=== PATIENT | female | born 1945 | race Caucasian/White ===

== ENCOUNTER 2016-11-27 11:44 | Inpatient (IN) ==
[2016-11-27] MEDS ORDERED: SOLU-MEDROL 125 MG IVP STA (12:03)
[2016-11-27] MEDS ORDERED: DUONEB NEB STA ×2 (12:03→12:09)
[2016-11-27] MEDS ORDERED: DUONEB NEB ONE (12:04)
[2016-11-27 12:14] LABS: ABG PH 7.401 (7.35-7.45)
[2016-11-27 12:15] LABS: ABG PCO2 45.6 mmHg (35-45)
[2016-11-27 12:16] LABS: ABG BASE EXCESS 4 (-2.0-2.0); ABG HCO3 28.3 (22.0-26.0); ABG TCO2 30 (22.0-28.0)
[2016-11-27 12:31] LABS: BASOPHILS # (AUTO) 0.1 K/uL (0-0.2); BASOPHILS % (AUTO) 0.7 % (0.0-3.0); EOSINOPHILS # (AUTO) 0.7 K/ul (0.0-0.7); EOSINOPHILS % (AUTO) 10.2 % (0.0-7.0); HEMATOCRIT 45.9 % (37.0-47.0); HEMOGLOBIN 15.5 g/dl (12.0-16.0); IMMATURE GRANULOCYTE % (AUTO) 0.1 % (0.0-5.0); LYMPHOCYTES # (AUTO) 1.9 K/uL (0.60-3.4); LYMPHOCYTES % (AUTO) 27.9 (10.0-50.0); MEAN CORPUSCULAR HEMOGLOBIN 30.9 pg (27.0-31.0); MEAN CORPUSCULAR HGB CONC 33.8 (31.8-35.4); MEAN CORPUSCULAR VOLUME 91.6 fl (81.0-99.0); MONOCYTES # (AUTO) 0.9 K/uL (0.4-2.0); MONOCYTES % (AUTO) 12.5 (0-10); NEUTROPHILS # (AUTO) 3.3 K/ul (2.0-6.9); NEUTROPHILS % (AUTO) 48.6; PLATELET COUNT 225 10^3/uL (140-440); RED BLOOD COUNT 5.01 10^6/ul (4.20-5.40); WHITE BLOOD COUNT 6.87 K/ul (4.6-10.2)
[2016-11-27 12:48] LABS: FLU INTERNAL QC INTERNAL QC VALID; RAPID FLU A NEGATIVE (NEGATIVE); RAPID FLU B NEGATIVE (NEGATIVE)
--- NOTE | 2016-11-27 13:07 | DI ---
EXAM: Chest, one-view HISTORY: Cough COMPARISON: 05/10/2015 TECHNIQUE: Single view of the chest was performed FINDINGS: There is chronic right basilar opacity that probably represents scarring. Left lung base, poorly visualized. No definitive new airspace consolidation There is no pleural effusion or pneumo thorax. The heart is enlarged and unchanged in size. The mediastinal contour is normal. There are no acute abnormalities of the bones. IMPRESSION: 1. Chronic right basilar opacity probably represents scarring. Left lung base poorly visualized. N o definitive consolidation identified, though a pneumonia would be difficult to exclude at the lung bases. 2. Cardiomegaly
[2016-11-27] MEDS ORDERED: NON-FORMULARY MEDICATION (Hydrocodone Bit/Acetaminophen 1 TAB) PO PRN (13:23)
--- NOTE | 2016-11-27 13:24 | ED.PDOC ---
General ED Provider: Dr. BRITTNEY ORR Chief Complaint: Shortness of Air Stated Complaint: SHORT OF AIR Time Seen by Physician: 12:00 Mode of Arrival: Wheelchair Information Source: Patient Exam Limitations: No limitations Primary Care Provider: CELI HIDALGO Nursing and Triage Documentation Reviewed and Agree: Yes Respiratory Complaint Exam - Shortness of Air Complaint/Exam Symptoms Are: Still present Timing: Intermittent Initial Severity: Moderate Current Severity: Moderate Character: Reports: Dyspnea at rest, Dyspnea on exertion Aggravating: Reports: Recumbent position, URI Associated Signs and Symptoms: Reports: Cough, Wheezing History of Healthcare-Acquired Pneumonia: No Pulmonary Embolism Risk Factors: Reports: None Cardiac Risk Factors: Reports: Hypertension Pseudomonas Risk Factors: Reports: Chronic Lung Disease Tuberculosis Risk Factors: Reports: Chronic Resp. Faliure Home Oxygen Use: No Recent Stress Test: No Recent Echo/LV Function: No Respiratory Distress: None Stridor Present: No Tracheal Deviation: No Accessory Muscle Use: No Retractions: Not Present Diminished Breath Sounds: No Prolonged Expiratory Phase: No Unable to Speak Full Sentences: No Fatigue: No Leg Swelling: No Jewel's Sign Present: No Grunting Respirations: No Kussmaul Respirations: No Differential Diagnoses: Asthma, CHF, Pulmonary Edema, Pneumonia, Bronchitis, Bronchospasm, URI Review of Systems - Review Of Systems Constitutional: Reports: Malaise, Weakness, Loss of appetite Eyes: Reports: No symptoms Ears, Nose, Mouth, Throat: Reports: No symptoms Respiratory: Reports: Cough, Wheezing Cardiac: Reports: No symptoms GI: Reports: No symptoms : Reports: No symptoms Musculoskeletal: Reports: No symptoms Skin: Reports: No symptoms Neurological: Reports: No symptoms Endocrine: Reports: No symptoms Hematologic/Lymphatic: Reports: No symptoms All Other Systems: Reviewed and Negative Past Medical History - Past Medical History Previously Healthy: No Endocrine: Reports: None Cardiovascular: Reports: Hypertension Respiratory: Reports: COPD Hematological: Reports: None Gastrointestinal: Reports: None Genitourinary: Reports: None Neuro/Psych: Reports: None Musculoskeletal: Reports: None Cancer: Reports: None Last Menstrual Period: hysterectomy - Surgical History General Surgical History: Reports: None - Family History Family History: Reports: None - Social History Smoking Status: Current every day smoker, Heavy tobacco smoker Hx Substance Use: No Alcohol Screening: None Physical Exam - Physical Exam Appearance: Well-appearing Ill-appearing: Mild Pain Distress: Mild Eyes: GIL, EOMI, Conjunctiva clear ENT: Ears normal, Nose normal, Oropharynx normal Respiratory: Rhonchi, Wheezes Cardiovascular: RRR, Pulses normal, No rub, No murmur GI/: Soft, Nontender, No masses, Bowel sounds normal, No Organomegaly Musculoskeletal: Normal strength, ROM intact, No edema, No calf tenderness Skin: Warm, Dry, Normal color Neurological: Sensation intact, Motor intact, Reflexes intact, Cranial nerves intact, Alert, Oriented Psychiatric: Affect appropriate, Mood appropriate Interpretation - Radiology Interpretation Radiology Interpretation By: Radiologist Radiology Results: No acute changes Re-Evaluation - Re-Evaluation Time of Re-Evaluation: 12:30 Status: Improved Vital Signs Stable: Yes Pain Level: 0 Appearance: NAD Lungs: Clear Skin: Warm and Dry Neuro: Alert and Oriented X3 CV: RRR - Re-Evaluation Time of Re-Evaluation: 13:27 Status: Improved Vital Signs Stable: Yes Pain Level: 0 Appearance: NAD Skin: Warm and Dry Neuro: Alert and Oriented X3 CV: RRR Physician Notification - Case Discussed Physician Notified: PMD Time of Notification: 13:26 (SAW PT IN THE ED STATED TO ADMITT WITH STEROID AND LEVAQUIN REPEAT ABG 1600) Critical Care Note - Critical Care Note Total Time (mins): 0 Course - Course Hematology/Chemistry: 11/27/16 12:25 Orders, Labs, Meds: Lab Review 11/27/16 11/27/16 11/27/16 12:09 12:20 12:25 WBC 6.87 RBC 5.01 Hgb 15.5 Hct 45.9 MCV 91.6 MCH 30.9 MCHC 33.8 RDW Coeff of Serenity 13.1 Plt Count 225 Immature Gran % (Auto) 0.1 Neut % (Auto) 48.6 Lymph % (Auto) 27.9 [place] % (Auto) 12.5 H Eos % (Auto) 10.2 H Baso % (Auto) 0.7 Immature Gran # (Auto) 0.0 Neut # 3.3 Lymph # 1.9 [place] # 0.9 Eos # 0.7 Baso # 0.1 D-Dimer 0.75 Puncture Site R brachial O2 Saturation 84.0 L ABG pH 7.401 ABG pCO2 45.6 H ABG pO2 49.0 L* ABG HCO3 28.3 H ABG Total CO2 30 H ABG Base Excess 4 H Mark Test + FiO2 % 21.0 B-Natriuretic Peptide 76 Influenza A (Rapid) Negative Influenza B (Rapid) Negative Orders Category Date Time Status ABG DRAW REQUEST Stat CARDIO 11/27/16 12:09 Completed EKG-(ED ONLY) Stat CARDIO 11/27/16 12:03 Completed NEBULIZER TREATMENT Stat CARDIO 11/27/16 12:03 Completed ED IV/MEDIPORT/POWERPORT .ONCE EMERGENCY 11/27/16 12:03 Active ABG Stat LAB 11/27/16 12:09 Completed B-TYPE NATRIURETIC PEPTIDE Stat LAB 11/27/16 12:25 Completed BLOOD CULTURE Stat LAB 11/27/16 12:25 Received CBC W/ AUTO DIFF Stat LAB 11/27/16 12:25 Completed COMPREHENSIVE METABOLIC PANEL Stat LAB 11/27/16 12:25 Received CREATINE KINASE Stat LAB 11/27/16 12:25 Received D-DIMER Stat LAB 11/27/16 12:25 Completed MOLECULAR GROUP A STREP Stat LAB 11/27/16 12:20 Results RAPID FLU A/B Stat LAB 11/27/16 12:20 Completed STREP SCREEN Stat LAB 11/27/16 12:20 Results TROPONIN I Stat LAB 11/27/16 12:25 Received 0.9 % Sodium Chloride [Saline Flush] MEDS 11/27/16 12:02 Active 1 syr IVF PRN PRN Ipratropium/Albuterol Neb [Duoneb] MEDS 11/27/16 12:04 Discontinued 1 vial NEB .STK-MED ONE Ipratropium/Albuterol Neb [Duoneb] MEDS 11/27/16 12:03 Discontinued 1 vial NEB ONCE STA Methylprednisolone Sod Succ/Pf [Solu-Medrol 125 mg] MEDS 11/27/16 12:03 Discontinued 125 mg IVP ONCE STA CHEST, 1V AP ONLY Stat RADS 11/27/16 12:04 Completed Medications Generic Name Dose Route Start Last Admin Trade Name Freq PRN Reason Stop Dose Admin Sodium Chloride 1 syr 11/27/16 12:02 11/27/16 12:23 Saline Flush IVF 1 syr PRN PRN Administration To flush IV Discontinued Medications Generic Name Dose Route Start Last Admin Trade Name Freq PRN Reason Stop Dose Admin Albuterol/Ipratropium 1 vial 11/27/16 12:03 11/27/16 12:11 Duoneb NEB 11/27/16 12:04 1 vial ONCE STA Administration Methylprednisolone Sodium Succinate 125 mg 11/27/16 12:03 11/27/16 12:23 Solu-Medrol 125 Mg IVP 11/27/16 12:04 125 mg ONCE STA Administration Vital Signs: Temp Pulse Resp BP Pulse Ox 11/27/16 11:45 98.8 F 84 36 H 145/80 H 84 L Departure - Departure Time of Disposition: 13:27 Disposition: ADMITTED INPATIENT Discharge Problem: COPD exacerbation Instructions: Dyspnea (ED) Condition: Good Pt referred to PMD for follow-up: No Additional Instructions: Please call your Family Physician as soon as possible to schedule a follow-up appointment. Allergies/Adverse Reactions: Allergies codeine Adverse Reaction (Verified 11/27/16 11:54) Penicillins Adverse Reaction (Verified 11/27/16 11:54) Home Medications: Ambulatory Orders Albuterol Sulfate [Proair Hfa] 2 puff IH Q6HR PRN 03/25/15 Atenolol 25 mg PO DAILY 03/25/15 Losartan/Hydrochlorothiazide [Losartan-Hctz 100-25 mg Tab] 1 tab PO DAILY Alprazolam [Alprazolam] 0.25 mg PO BID PRN 05/10/15 Aspirin [Aspirin Chewable] 81 mg PO DAILY 05/10/15 Hydrocodone Bit/Acetaminophen [Lortab 5-500] 1 tab PO 12 PRN 05/10/15 Disposition Discussed With: Patient, Family
[2016-11-27 13:37] LABS: ALBUMIN/GLOBULIN RATIO 1.33; ANION GAP 13.8; BILIRUBIN,TOTAL 0.77 mg/dL (0.00-1.20); BUN/CREATININE RATIO 20.28; CALCIUM 9.7 mg/dL (8.2-10.2); CREATININE 0.69 mg/dL (0.60-1.30); POTASSIUM 3.8 mmol/L (3.5-5.10); TROPONIN I 0.018 ng/ml (0.0000-0.4000)
[2016-11-27 14:09] VITALS: BMI 20.5
[2016-11-27] MEDS ORDERED: ASPIRIN CHEWABLE PO PRN (14:23)
[2016-11-27] MEDS: LEVAQUIN 500 MG in PREMIX 100 ML D5W 1 BAG IV SCH (15:47)
[2016-11-27 15:59] LABS: ABG BASE EXCESS 0 (-2.0-2.0); ABG HCO3 25.6 (22.0-26.0); ABG PCO2 44.2 mmHg (35-45); ABG TCO2 27 (22.0-28.0)
[2016-11-27] MEDS: TENORMIN PO SCH (17:01)
[2016-11-27] MEDS: HYZAAR 50-12.5 MG TAB PO SCH (17:01)
[2016-11-27] MEDS: DUONEB NEB SCH ×2 (17:08→23:20)
[2016-11-27] MEDS: XANAX PO PRN (21:03)
[2016-11-27] MEDS: SOLU-MEDROL 125 MG IV SCH (21:19)
[2016-11-28] MEDS: SOLU-MEDROL 125 MG IV SCH ×3 (04:26→20:05)
[2016-11-28] MEDS: DUONEB NEB SCH ×4 (05:50→23:29)
[2016-11-28] MEDS ORDERED: ASPIRIN CHEWABLE PO SCH (08:00)
[2016-11-28] MEDS: LEVAQUIN 500 MG in PREMIX 100 ML D5W 1 BAG IV SCH (08:22)
[2016-11-28 08:31] LABS: BASOPHILS % (AUTO) 0.2 % (0.0-3.0); HEMATOCRIT 44.5 % (37.0-47.0); HEMOGLOBIN 15.3 g/dl (12.0-16.0); IMMATURE GRANULOCYTE % (AUTO) 0.4 % (0.0-5.0); LYMPHOCYTES # (AUTO) 0.8 K/uL (0.60-3.4); LYMPHOCYTES % (AUTO) 9.4 (10.0-50.0); MEAN CORPUSCULAR HEMOGLOBIN 31.2 pg (27.0-31.0); MEAN CORPUSCULAR HGB CONC 34.4 (31.8-35.4); MEAN CORPUSCULAR VOLUME 90.6 fl (81.0-99.0); MONOCYTES # (AUTO) 0.3 K/uL (0.4-2.0); MONOCYTES % (AUTO) 3.5 (0-10); NEUTROPHILS # (AUTO) 7.1 K/ul (2.0-6.9); NEUTROPHILS % (AUTO) 86.5; PLATELET COUNT 231 10^3/uL (140-440); RED BLOOD COUNT 4.91 10^6/ul (4.20-5.40); WHITE BLOOD COUNT 8.26 K/ul (4.6-10.2)
[2016-11-28 08:55] LABS: ALBUMIN 3.8 g/dL (3.4-5.0); ALBUMIN/GLOBULIN RATIO 1.19; ANION GAP 15.6; BILIRUBIN,TOTAL 0.86 mg/dL (0.00-1.20); BUN/CREATININE RATIO 20.28; CALCIUM 9.7 mg/dL (8.2-10.2); CREATININE 0.69 mg/dL (0.60-1.30); POTASSIUM 3.6 mmol/L (3.5-5.10)
[2016-11-28] MEDS ORDERED: TENORMIN PO SCH (09:00)
[2016-11-28] MEDS ORDERED: HYZAAR 50-12.5 MG TAB PO SCH (09:00)
[2016-11-28] MEDS ORDERED: NON-FORMULARY MEDICATION (Losartan/Hydrochlorothiazide [Losartan-Hctz 100-25 Mg Tab] 1 TAB PO SCH (09:00)
--- NOTE | 2016-11-28 09:53 | DI ---
EXAM: Chest one view HISTORY: Short of air COMPARISON: 11/27/2016 TECHNIQUE: Single view of the chest was performed FINDINGS: Chronic right basilar opacity. Left lung base, poorly visualized. No pneumothorax. No definite pleural effusion. Heart is enlarged and unchanged. Mediastinal contour unchanged, noting atherosclerosis. Bones appear unchanged. Since the prior study, there has been no significant interv al change. IMPRESSION: 1. Chronic right basilar opacity probably represents scarring. Left lung base poorly visualized. No definitive consolidation identified, though a pneumonia would be difficult to exclude at the lung ba ses. 2. Cardiomegaly
[2016-11-28] MEDS: MUCINEX PO SCH ×2 (10:25→20:04)
[2016-11-28] MEDS: XANAX PO PRN ×2 (13:07→20:10)
[2016-11-28] MEDS: TENORMIN PO SCH (16:29)
[2016-11-28] MEDS: HYZAAR 50-12.5 MG TAB PO SCH (16:29)
[2016-11-29] MEDS: SOLU-MEDROL 125 MG IV SCH ×3 (05:19→20:26)
[2016-11-29] MEDS: DUONEB NEB SCH ×4 (05:30→23:31)
--- NOTE | 2016-11-29 07:28 | DI ---
EXAM: Chest two views HISTORY: Short of air COMPARISON: 11/28/2016 TECHNIQUE: Two views of the chest were performed FINDINGS: Bibasilar interstitial opacities appear increased. There is no pleural effusion or pneum othorax. The heart is mildly enlarged and unchanged. in size. The mediastinal contour is unchanged , noting atherosclerosis. There are no acute abnormalities of the bones. IMPRESSION: Mild bibasilar interstitial opacities appear increased and could represent atelectasis and/or pneumonia. There are likely chronic underlying changes in these regions, limiting evaluation
[2016-11-29 07:56] LABS: BASOPHILS % (AUTO) 0.2 % (0.0-3.0); HEMATOCRIT 42.4 % (37.0-47.0); HEMOGLOBIN 14.5 g/dl (12.0-16.0); IMMATURE GRANULOCYTE % (AUTO) 0.5 % (0.0-5.0); LYMPHOCYTES # (AUTO) 0.8 K/uL (0.60-3.4); LYMPHOCYTES % (AUTO) 4.9 (10.0-50.0); MEAN CORPUSCULAR HEMOGLOBIN 30.9 pg (27.0-31.0); MEAN CORPUSCULAR HGB CONC 34.2 (31.8-35.4); MEAN CORPUSCULAR VOLUME 90.2 fl (81.0-99.0); MONOCYTES % (AUTO) 6.3 (0-10); NEUTROPHILS # (AUTO) 13.5 K/ul (2.0-6.9); NEUTROPHILS % (AUTO) 88.1; PLATELET COUNT 225 10^3/uL (140-440); WHITE BLOOD COUNT 15.28 K/ul (4.6-10.2)
[2016-11-29 08:22] LABS: ALBUMIN 3.7 g/dL (3.4-5.0); ALBUMIN/GLOBULIN RATIO 1.28; ANION GAP 14.5; BILIRUBIN,TOTAL 0.71 mg/dL (0.00-1.20); CALCIUM 9.5 mg/dL (8.2-10.2); CREATININE 0.68 mg/dL (0.60-1.30); POTASSIUM 3.5 mmol/L (3.5-5.10); TOTAL PROTEIN 6.6 g/dL (5.8-8.1)
[2016-11-29] MEDS: LEVAQUIN 500 MG in PREMIX 100 ML D5W 1 BAG IV SCH (08:53)
[2016-11-29] MEDS: MUCINEX PO SCH ×2 (08:53→20:26)
[2016-11-29] MEDS: XANAX PO PRN ×2 (13:15→20:29)
[2016-11-29] MEDS: HYZAAR 50-12.5 MG TAB PO SCH (17:15)
[2016-11-29] MEDS: TENORMIN PO SCH (17:16)
[2016-11-30] MEDS: SOLU-MEDROL 125 MG IV SCH (05:29)
[2016-11-30] MEDS: DUONEB NEB SCH ×2 (05:32→11:13)
[2016-11-30] MEDS: LEVAQUIN 500 MG in PREMIX 100 ML D5W 1 BAG IV SCH (09:14)
[2016-11-30] MEDS: MUCINEX PO SCH (09:14)
[2016-11-30 09:23] LABS: ABG PCO2 45.4 mmHg (35-45); ABG PH 7.422 (7.35-7.45)
[2016-11-30 09:24] LABS: ABG BASE EXCESS 5 (-2.0-2.0); ABG HCO3 29.6 (22.0-26.0); ABG TCO2 31 (22.0-28.0)
[2016-11-30] MEDS: XANAX PO PRN (09:25)
[2016-11-30 10:51] VITALS: BP 96/62; TEMP 97.3
--- NOTE | 2016-11-30 11:11 | CM.DICTOOL ---
ADMISSION: 11/27/16 13:31 DISCHARGE: November 30, 2016 DATE OF SERVICE: 11/30/16 FINAL DIAGNOSIS COPD exacerbation Hypertension COPD, oxygen dependent Previous smoker (stopped 1 month ago) Anxiety Partial hysterectomy Cholecystectomy LAST VITALS Temp Pulse Resp BP Pulse Ox 97.0 F L 63 20 103/58 L 90 L 11/30/16 05:49 11/30/16 05:49 11/30/16 08:00 11/30/16 05:49 11/30/16 10:00 ACTIVE MEDICATIONS Alprazolam (Xanax) 0.25 mg PO BID PRN PRN Reason: Agitation Last Admin: 11/30/16 09:25 Dose: 0.25 mg Aspirin (Aspirin Chewable) 81 mg PO BID PRN PRN Reason: pain Atenolol (Tenormin) 25 mg PO 1700 SWATI Last Admin: 11/29/16 17:16 Dose: 25 mg HCTZ/Losartan Potassium (Hyzaar 50-12.5 Mg Tab) 2 tab PO 1700 SWATI Last Admin: 11/29/16 17:15 Dose: 2 tab Albuterol Nebs TID Last Admin: ALLERGIES codeine Adverse Reaction (Verified 11/27/16 11:54) Penicillins Adverse Reaction (Verified 11/27/16 11:54) NEW PRESCRIPTIONS: Levaquin 250 mg daily for 5 days Prednisone 10 mg daily for 5 days. Take with food SMOKING: Advised to not resume smoking DISEASE SPECIFIC EDUCATION: Smoking Pulmonary Rehab Program Prescriptions Follow-up with physician LAB REVIEW: 11/29/16 07:40 11/29/16 07:40 11/30/16 09:15: Puncture Site R brach, O2 Saturation 85.0 L, ABG pH 7.422, ABG pCO2 45.4 H, ABG pO2 50.0 L*, ABG HCO3 29.6 H, ABG Total CO2 31 H, ABG Base Excess 5 H, Mark Test +, FiO2 % 21.0 PLAN: Discharge Home Diet: Regular diet. Advised to chop or grind meats if difficulty swallowing meats continues. Activity: Gradually resume activity as tolerated Informational packet is given regarding Pulmonary Rehab program at [facility]. She is encouraged to call Melissa Rueda after reading the material to arrange an appointment. Continue use of home oxygen at 2.5 liters per nasal cannula. Resume use of home nebulizer treatments three times daily. An appointment has been scheduled with Dr. Burgess for December 04, 2016 at 11:30 am Mrs. Clayton is alert and oriented x 3. She is ambulatory and independent with ADL's. She requires oxygen at 2.5 liters per cannula. Oxygen and nebulizer are available at home for her use. Meal intakes are fair at 10-90%. No reports of nausea. Skin is in good condition. No rashes, irritation or decubitus ulcers are noted. Ruy Burgess MD
--- NOTE | 2016-12-02 13:33 | HP ---
DATE OF SERVICE: 11/27/16 REASON FOR HOSPITALIZATION: Respiratory failure. HISTORY OF PRESENT ILLNESS: The patient is a 71 year old white female came to the emergency room because of cough, congestion, shortness of breath and the patient has been on antibiotics with not much improvement. She was supposed to come to the office but she decided to the go to the emergency room. The patient was seen and examined in the emergency room by ER attending. Her arterial blood gasses on room air showed pO2 49, pCO2 of 45, pH 7.40 with 84% saturation. The patient has severe chronic lung disease. She says that she has quit smoking four weeks ago. 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 REVIEW OF SYSTEMS: CONSTITUTIONAL: No night sweats. Fatigue and weakness. No fever or chills. HEENT: Eyes: No visual changes. No eye pain. No eye discharge. ENT: No runny nose. No epistaxis. No sinus pain. No sore throat. No odynophagia. No ear pain. No congestion. RESPIRATORY: Cough,congestion yellowish sputum production. No hemoptysis. CARDIOVASCULAR: No angina symptoms. No CHF symptoms. No atypical chest pain for CAD. No palpitations. No shortness of breath. Pleuritic type pain with cough on the right posterior scapular area. No PND and No orthopnea. GASTROINTESTINAL: No abdominal pain. No nausea or vomiting. No diarrhea or constipation. No hematemesis. No hematochezia. Appetite not that good. GENITOURINARY: No urgency. No frequency. No dysuria. No hematuria. No obstructive symptoms. No discharge. No pain. No significant abnormal bleeding. MUSCULOSKELETAL: No musculoskeletal pain. No joint swelling. No arthritis. NEUROLOGICAL: No headache. No neck pain. No syncope. No seizures. No dizziness. PSYCHIATRIC: Not anxious. No depression. No suicidal thoughts. No homicidal thoughts. SKIN: No rash. No lesions. No wounds. ENDOCRINE: No unexplained weight loss. No weight gain. HEMATOLOGIC/LYMPHATIC: No anemia. No purpura. No petechiae. No prolonged or excessive bleeding. No palpable lymph nodes. PERSONAL/FAMILY/SOCIAL HISTORY: The patient is and lives with the . Smokes more than a couple of packs a day, says that she has quit four weeks ago. No alcohol abuse. Does all activity of daily living. Family history: Father is with high blood pressure, mother with Alzheimer's disease. Three kids. PAST MEDICAL/SURGICAL PROBLEMS: Partial hysterectomy Appendectomy Peptic ulcer disease Severe chronic lung disease History of smoking Hypertension Dyslipidemia Hypothyroidism Status post cholecystectomy Polycythemia secondary to smoking Near Stage III diverticulosis of colon MEDICATIONS: Albuterol inhaler two puffs six hourly NEBS treatment at night 25 PO daily Losartan Hydrochlorothiazide 125mg PO daily Alprazolam 0.25mg twice a day Aspirin 81mg PO daily ALLERGIES: Codeine Penicillin PHYSICAL EXAMINATION: GENERAL: The patient is oriented to time, place and person. VITAL SIGNS: Temperature 97.5, pulse 90, respiratory rate 20, blood pressure 145/80 and pulse 91%. HEENT: Head normocephalic, atraumatic. Eyes: Extraocular muscles are intact. Pupils are equal, round and reactive to light and accommodation. Ears: No lesions. Nose appeared normal. Throat: No exudate or erythema. Mucosa membrane dry. NECK: Supple. No JVP, no carotid bruit. No lymphadenopathy or thyromegaly. LUNGS: Kyphos. decreased breath sounds with mild wheeze but good air entry. Percussion note normal. Chest symmetrical. HEART: S1, S2, no S3. PMI not palpable. No murmurs. No cyanosis or clubbing. No ascites. Pulses: Dorsalis pedis and posterior tibial pulses and radial +1. ABDOMEN: Soft. Nontender. Bowel sounds active. No CVA tenderness. No mass felt. EXTREMITIES: No pedal edema. Full range of motion of all extremities, equal. NEUROLOGIC: No focal deficit. Cranial nerves II through XII are grossly intact. No headache, no double vision or headache. SKIN: Dry. Intact. Turgor - normal. LYMPHATIC: No palpable lymph nodes/no lymphedema. MUSCULOSKELETAL: Normal joints with no swelling. Muscle tone is normal. LABS: Hgb 15, hct 25, WBC 6,800 normal differential. Chest x-ray COPD. ABG mentioned above. Influenza A and B negative. CMP: Creatinine 0.6, BUN 14, potassium 3.8, CK borderline , BNP 76, D-dimer negative. ASSESSMENT: 1. Acute respiratory failure 2. Sever chronic lung disease 3. Acute bronchitis 4. History of smoking 5. Hypertension 6. Dyslipidemia 7. Hypothyroidism 8. ASHD 9. Kyphosis 10.Polycythemia Secondary to smoking 11.Diverticulosis 12.Cholecystectomy 13. Hysterectomy 14. Appendectomy 15. Peptic ulcer disease PLAN: 1. IV Fluids 2. IV steroids 3. Levaquin 500mg Q 24 hours 4. Watch for fluid overload 5. Telemetry 6. Monitor Arterial blood gasses 7. 2 liters of oxygen per cannula per minute 8. Counseling for smoking done. 9. Steroid side effects discussed including avascular necrosis of femoral head. CONDITION: Stable. TIME SPENT: More than 70 minutes. MTDD
--- NOTE | 2016-12-03 12:45 | PN ---
DATE OF SERVICE: 11/28/16 SUBJECTIVE: The patient is a 71 year old white female hospitalized with COPD and possibility of /pneumonitis and bronchitis. The patient was in respiratory failure. The patient is feeling a lot better and breathing better. Her appetite has improved. REVIEW OF SYSTEMS: CONSTITUTIONAL: No night sweats. No fatigue, malaise, lethargy. No fever or chills. HEENT: Eyes: No visual changes. No eye pain. No eye discharge. ENT: No runny nose. No epistaxis. No sinus pain. No sore throat. No odynophagia. No congestion. RESPIRATORY: No cough, no congestion. No hemoptysis. CARDIOVASCULAR: No angina symptoms. No CHF symptoms. No atypical chest pain for CAD. No palpitations. No shortness of breath. GASTROINTESTINAL: No abdominal pain. No nausea or vomiting. No diarrhea or constipation. No hematemesis. No hematochezia. GENITOURINARY: No urgency. No frequency. No dysuria. No hematuria. No obstructive symptoms. No discharge. No pain. No significant abnormal bleeding. MUSCULOSKELETAL: No musculoskeletal pain; no joint swelling. NEUROLOGICAL: No headache. No neck pain. No syncope. No seizures. No dizziness. PSYCHIATRIC: Not anxious. No depression. No suicidal thoughts. No homicidal thoughts. SKIN: No rash. No lesions. No wounds. ENDOCRINE: No unexplained weight loss. No weight gain. HEMATOLOGIC/LYMPHATIC: No anemia. No purpura. No petechiae. No prolonged or excessive bleeding. No palpable lymph nodes. PHYSICAL EXAMINATION: GENERAL: The patient is oriented to time, place and person. VITAL SIGNS: Temperature 97, pulse 78, respiratory 19, blood pressure 105/64 and pulse ox 90% with 2 liters. HEENT: Head normocephalic, atraumatic. Eyes: Extraocular muscles are intact. Pupils are equal, round and reactive to light and accommodation. Ears: No lesions. Nose appeared normal. Throat: No exudate or erythema. NECK: Supple. No JVD, no carotid bruit. No lymphadenopathy or thyromegaly. LUNGS: Decreased breath sounds but clear to auscultation. Percussion note normal. Chest symmetrical. HEART: S1, S2, no S3. No murmurs. No cyanosis or clubbing. No ascites. Pulses: Dorsalis pedis and posterior tibial pulses +1 to +2 both sides. ABDOMEN: Soft. Nontender. Bowel sounds active. No CVA tenderness. No mass felt. EXTREMITIES: No edema. Full range of motion of all extremities, equal. NEUROLOGIC: No focal deficit. Cranial nerves II through XII are grossly intact. No headache, no double vision or headache. SKIN: Not dry. Intact. Turgor - normal. LYMPHATIC: No palpable lymph nodes/no lymphedema. MUSCULOSKELETAL: Normal joints with no swelling. Muscle tone is normal. LABS: Telemetry sinus rhythm, No acute changes. The patient on chest x-ray has cardiomegaly. ASSESSMENT: 1. Acute bronchitis 2. Severe chronic lung disease PLAN: 1. Continue steroids 2. Continue IV antibiotics 3. Continue NEBS treatment 4. Counseling for smoking done, she says that she has quit smoking for a week. CONDITION: Stable. Respiratory status and Cardia status is stable. TIME SPENT: More than 30 minutes. Plan and coordination of the patient's care discussed in the presence of nurse. MO
--- NOTE | 2016-12-04 10:58 | PN ---
DATE OF SERVICE: 11/29/16 SUBJECTIVE: 71-year-old white female hospitalized with acute bronchitis, pneumonitis. The patient's condition has steadily improved. She looks a lot better, eating much better. The chest x-ray done this morning showed mild bibasilar interstitial opacity appearing increased and could represent atelectasis or pneumonia. The patient likely has pneumonitis. The patient's clinical status has improved remarkably, maybe patient was dehydrated. In any case, the patient is afebrile, mild cough otherwise no fever, no chills. Appetite has improved. She is up and about in the room. REVIEW OF SYSTEMS: CONSTITUTIONAL: No night sweats. No fatigue, malaise, lethargy. No fever or chills. HEENT: Eyes: No visual changes. No eye pain. No eye discharge. ENT: No runny nose. No epistaxis. No sinus pain. No sore throat. No odynophagia. No congestion. RESPIRATORY: Mild cough and congestion. No hemoptysis. CARDIOVASCULAR: No angina symptoms. No CHF symptoms. No atypical chest pain for CAD. No palpitations. No shortness of breath. GASTROINTESTINAL: Appetite is better. No abdominal pain. No nausea or vomiting. No diarrhea or constipation. No hematemesis. No hematochezia. GENITOURINARY: No urgency. No frequency. No dysuria. No hematuria. No obstructive symptoms. No discharge. No pain. No significant abnormal bleeding. MUSCULOSKELETAL: No musculoskeletal pain; no joint swelling. NEUROLOGICAL: No headache. No neck pain. No syncope. No seizures. No dizziness. PSYCHIATRIC: Not anxious. No depression. No suicidal thoughts. No homicidal thoughts. SKIN: No rash. No lesions. No wounds. ENDOCRINE: No unexplained weight loss. No weight gain. HEMATOLOGIC/LYMPHATIC: No anemia. No purpura. No petechiae. No prolonged or excessive bleeding. No palpable lymph nodes. PHYSICAL EXAMINATION: VITAL SIGNS: Temperature 97.1, pulse 88, respiratory rate 18, BP 101/61. Pulse ox 92%. HEENT: Head normocephalic, atraumatic. Eyes: Extraocular muscles are intact. Pupils are equal, round and reactive to light and accommodation. Ears: No lesions. Nose appeared normal. Throat: No exudate or erythema. NECK: Supple. No JVD, no carotid bruit. No lymphadenopathy or thyromegaly. LUNGS: Decreased breath sounds. Kyphosis. Clear to auscultation. Percussion note normal. Chest symmetrical. HEART: S1, S2, no S3. No murmurs. No cyanosis or clubbing. No ascites. Pulses: Dorsalis pedis and posterior tibial pulses +1 to +2 both sides. ABDOMEN: Soft. Nontender. Bowel sounds active. No CVA tenderness. No mass felt. EXTREMITIES: No edema. Full range of motion of all extremities, equal. NEUROLOGIC: No focal deficit. Cranial nerves II through XII are grossly intact. No headache, no double vision or headache. SKIN: Not dry. Intact. Turgor - normal. LYMPHATIC: No palpable lymph nodes/no lymphedema. MUSCULOSKELETAL: Normal joints with no swelling. Muscle tone is normal. LABS: WBC 15,000 likely from steroids. Yesterday creatinine was 0.6, BUN 14, BNP 76, D. dimer negative. ASSESSMENT: 1. ACUTE BRONCHITIS/PNEUMONITIS. 2. SMOKING 3. COPD 4. KYPHOSIS WITH RESTRICTIVE LUNG DISEASE 5. HYPERTENSION 3. KYP PLAN: 1. Counseling for smoking done. 2. Continue steroids. 3. Continue IV antibiotics. 4. Continue nebs treatment. TIME SPENT: More than 30 minutes. CONDITION: STABLE Plan and coordination of the patient's care discussed in the presence of nurse. MO
--- NOTE | 2016-12-04 11:26 | DS ---
DATE OF SERVICE: 11/30/16 FINAL DIAGNOSIS: 1. COPD EXACERBATION 2. HYPERTENSION 3. COPD, OXYGEN DEPENDENT 4. PREVIOUS SMOKER (STOPPED ONE MONTH AGO) 5. ANXIETY 6. PARTIAL HYSTERECTOMY 7. CHOLECYSTECTOMY VITAL SIGNS: Temperature 97.0, pulse 63, respiratory rate 20, BP 103/58, pulse ox 90% DISCHARGE INSTRUCTIONS: Followup appointment: Followup with Dr. Burgess on 12/04/16 at 11:30 a.m. Informational packet was given to the patient regarding the Pulmonary Rehab Program at [facility]. She is encouraged to call Melissa Rueda after reading the material to arrange an appointment. Continue use of home oxygen at 2.5L/NC. Resume use of home nebulizer treatments t.i.d. MEDICATIONS AT DISCHARGE: 1. Losartan/Hydrochlorothiazide one tab p.o. daily 2. Atenolol 25 mg p.o. daily 3. Albuterol (Proair HFA) two puff IH q.6hr p.r.n. 4. Aspirin 81 mg p.o. p.r.n. 5. Alprazolam 0.25 mg p.o. b.i.d. p.r.n. 6. Levofloxacin (Levaquin) 250 mg p.o. daily 7. Prednisone 10 mg p.o. daily with meal NEW PRESCRIPTIONS: Levaquin 250 mg daily for 5 days Prednisone 10 mg daily for 5 days, take with food DIET INSTRUCTIONS: Regular diet. Advised to chop or grind meats if difficulty swallowing meats continue. ACTIVITY: Gradually resume activity as tolerated. SMOKING: Advised not to resume smoking. DISEASE SPECIFIC EDUCATION: Smoking; pulmonary rehab program; prescriptions; followup with physician HOSPITAL COURSE: 71-year-old white female hospitalized with acute bronchitis, COPD. The patient has given up smoking one month ago but she developed bronchitis type of symptoms for the last few days. She looked dehydrated, fatigued, weak and tired , possibility of pneumonitis. The patient's condition improved remarkably within a couple of days of the hospital stay. The patient was given nebs treatment, IV antibiotics, IV steroids. At time of discharge, the patient was feeling a lot better, hydration status improved. She was up and about, not much coughing. She was discharged on p.o. Levofloxacin and steroids for five days. She is going to be seen in the office in five days. The patient has decided to join pulmonary rehab for which the consultation was given. PFT showed severe chronic lung disease with FEV1 of 33% which was less than 1L. The patient, besides having chronic lung disease from heavy smoking and severe kyphosis with osteoporosis. She was explained about these findings. CONDITION AT TIME OF DISCHARGE: Stable/ TIME SPENT: More than 60 minutes. MTDD
== END 2016-11-30 11:50 | disposition home or self-care (01) | DRG 190 ==
LOC: ED 11:44 → MEDSURG A 13:31
PROVIDERS: ADMIT Internal Medicine; ATTEND Internal Medicine
DX: J44.0 Chronic obstructive pulmonary disease with (acute) lower respiratory infection (principal); J18.9 Pneumonia, unspecified organism; J20.9 Acute bronchitis, unspecified; J44.1 Chronic obstructive pulmonary disease with (acute) exacerbation; I10 Essential (primary) hypertension; F41.9 Anxiety disorder, unspecified; M40.209 Unspecified kyphosis, site unspecified; F17.210 Nicotine dependence, cigarettes, uncomplicated; Z79.899 Other long term (current) drug therapy; Z79.82 Long term (current) use of aspirin; Z90.49 Acquired absence of other specified parts of digestive tract
CPT/HCPCS: 36415; 80053; 82550; 82553; 82803; 83880; 84484; 85025; 85379; 87040; 87651; 87804; 87880; 93005; 93010; 94640; 96374; 99284

== ENCOUNTER 2016-12-29 13:27 | Outpatient (RCR) ==
[2017-01-21 13:34] VITALS: BP 118/58
== END 2017-01-24 ==
LOC: RAD 13:27
PROVIDERS: ATTEND Internal Medicine
DX: J44.9 Chronic obstructive pulmonary disease, unspecified (principal)

== ENCOUNTER 2017-01-25 09:43 | Outpatient (RCR) ==
[2017-02-23 13:48] VITALS: BP 108/52
== END 2017-02-24 ==
LOC: PUL.REHAB 09:43
PROVIDERS: ATTEND Internal Medicine
DX: J44.9 Chronic obstructive pulmonary disease, unspecified (principal)

== ENCOUNTER 2017-01-27 16:44 | Outpatient (CLI) | END 2017-01-27 16:45 | disposition home or self-care (01) | LOC: LAB 16:44 | PROVIDERS: ATTEND General Practice | DX: L02.91 Cutaneous abscess, unspecified (principal) | CPT/HCPCS: 87070 ==

== ENCOUNTER 2017-02-25 07:14 | Outpatient (RCR) ==
[2017-03-25 13:51] VITALS: BP 108/54
== END 2017-03-26 ==
LOC: PUL.REHAB 07:14
PROVIDERS: ATTEND Internal Medicine
DX: J44.9 Chronic obstructive pulmonary disease, unspecified (principal)

== ENCOUNTER 2017-03-29 07:59 | Outpatient (RCR) ==
[2017-04-22 13:26] VITALS: BP 114/58
== END 2017-04-26 ==
LOC: PUL.REHAB 07:59
PROVIDERS: ATTEND Internal Medicine
DX: J44.9 Chronic obstructive pulmonary disease, unspecified (principal)

== ENCOUNTER 2017-04-27 07:06 | Outpatient (RCR) | END 2017-04-27 12:00 | disposition home or self-care (01) | LOC: PUL.REHAB 07:06 | PROVIDERS: ATTEND Internal Medicine | DX: J44.9 Chronic obstructive pulmonary disease, unspecified (principal) ==

== ENCOUNTER 2018-04-14 09:30 | Outpatient (CLI) ==
--- NOTE | 2018-04-14 09:56 | DI ---
EXAM: Two views of the chest. History: Acute bronchitis. Comparison: Chest radiograph 11/29/2016 Findings: Heart is enlarged. Atherosclerotic vascular calcifications. Pectus excavitum deformity. No definite acute infiltrates. Torturuous thoracic aorta. No appreciable pleural fluid and no pneu mothorax. Degenerative changes of the spine. No change in the right paratracheal opacity. Impression: 1. Cardiomegaly without acute disease in the chest. 2. No change in the right paratracheal opacity.
== END 2018-04-14 09:31 | disposition home or self-care (01) ==
LOC: RAD 09:30
PROVIDERS: ATTEND Internal Medicine
DX: J20.9 Acute bronchitis, unspecified (principal); R06.02 Shortness of breath

== ENCOUNTER 2019-05-12 12:05 | Outpatient (CLI) ==
--- NOTE | 2019-05-12 14:59 | DI ---
EXAM: Chest two views HISTORY: Chronic obstructive pulmonary disease COMPARISON: 04/14/2018 TECHNIQUE: Two views of the chest were performed FINDINGS: Heart is enlarged, unchanged. Mediastinal contour unchanged, noting atherosclerosis and r ight paratracheal prominence that is unchanged from at least 2014. Mild bibasilar atelectasis. No d efinite consolidation. No visible pneumothorax. No pleural effusion. IMPRESSION: Cardiomegaly. No acute cardiopulmonary process.
--- NOTE | 2019-05-12 15:22 | DI ---
EXAM: Pelvis one-view HISTORY: Pelvis pain COMPARISON: None TECHNIQUE: Single view pelvis was performed FINDINGS: Sacroiliac joints intact. Sacral arcuate intact. Degenerative change in the spine. Hip joints appear normal. No fracture or dislocation. Atherosclerotic vascular calcification. IMPRESSION: No fracture or dislocation.
--- NOTE | 2019-05-12 15:23 | DI ---
EXAM: Lumbar spine three view HISTORY: Back pain COMPARISON: 03/18/2015 TECHNIQUE: Three-view lumbar spine was performed FINDINGS: Sacroiliac joints intact. Sacral arcuate intact. Vertebral bodies normal in height. No fracture. Multilevel marginal osteophyte formation. Multilevel intervertebral disc space narrowing ranging from mild to severe and greatest at L1-L2 and L5-S1. Multilevel facet arthrosis that is grea test in the lower spine. Bilateral pars defects L5 with 8 mm anterolisthesis L5 on S1. There is als o 3 mm retrolisthesis L1 on L2. Atherosclerotic vascular calcification. IMPRESSION: 1. Advanced chronic discogenic degenerative disease and facet arthrosis. 2. Bilateral pars defects L5 with 8 mm anterolisthesis L5 on S1
== END 2019-05-12 12:06 | disposition home or self-care (01) ==
LOC: RAD 12:05
PROVIDERS: ATTEND Internal Medicine
DX: J44.9 Chronic obstructive pulmonary disease, unspecified (principal); M54.5 Low back pain; R10.2 Pelvic and perineal pain

== ENCOUNTER 2022-04-20 10:01 | Inpatient (IN) ==
--- NOTE | 2022-04-20 10:16 | ED.PDOC ---
General ED Provider: Dr. NATACHA KWOK MD Chief Complaint: Respiratory Complaint Stated Complaint: Patient has advanced COPD and is on home oxygen. She presents now with a one week history of progressive dyspnea. She does have a cough productive of yellowish sputum. Patient denies fever, chills, chest pain, peripheral edema, orthopnea, PND, syncope, palpitations. She is on 4L/min [place] oxygen at home. She did stop smoking one month ago. Time Seen by Provider: 04/20/22 10:14 Mode of Arrival: Stretcher Information Source: Patient and EMT Exam Limitations: No limitations Primary Care Provider: CELI HIDALGO Nursing and Triage Documentation Reviewed and Agree: Yes Does patient meet sepsis criteria?: No System Inflammatory Response Syndrome: Not Applicable Sepsis Protocol: For patient's 13 years and over: Temp is 96.8 and below OR 101 and greater Pulse >90 BPM Resp >20/minute Acutely Altered Mental Status Are patient's symptoms suggestive of a new infection, such as: -Pneumonia -Skin, Soft Tissue -Endocarditis -UTI -Bone, Joint Infection -Implantable Device -Acute Abdominal Infection -Wound Infection -Meningitis -Blood Stream Catheter Infection -Unknown Respiratory Complaint Exam Shortness of Air Complaint/Exam Onset/Duration: one week Symptoms Are: Still present and Worse Timing: Constant Initial Severity: Moderate Current Severity: Severe Character: Reports Dyspnea at rest and Dyspnea on exertion Aggravating: Reports Movement Alleviating: Reports None Associated Signs and Symptoms: Reports Cough, Wheezing, Rapid breathing and Labored breathing Related History: Reports Similar episode History of Healthcare-Acquired Pneumonia: No Pulmonary Embolism Risk Factors: Reports None Cardiac Risk Factors: Reports Smoking Pseudomonas Risk Factors: Reports None Tuberculosis Risk Factors: Reports None Home Oxygen Use: Yes Recent Stress Test: No Recent Echo/LV Function: No Respiratory Distress: Moderate Stridor Present: No Tracheal Deviation: No Subcutaneous Emphysema: No Accessory Muscle Use: Yes Retractions: Not Present Diminished Breath Sounds: Yes Prolonged Expiratory Phase: Yes Unable to Speak Full Sentences: No Fatigue: No Leg Swelling: No Jewel's Sign Present: No Grunting Respirations: No Kussmaul Respirations: No Review of Systems Review Of Systems Constitutional: Reports No symptoms Eyes: Reports No symptoms Ears, Nose, Mouth, Throat: Reports No symptoms Respiratory: Reports Cough, Short of air and Wheezing Cardiac: Reports No symptoms GI: Reports No symptoms : Reports No symptoms Musculoskeletal: Reports No symptoms Skin: Reports No symptoms Neurological: Reports No symptoms Endocrine: Reports No symptoms Hematologic/Lymphatic: Reports No symptoms All Other Systems: Reviewed and Negative [facility] Medical History (Updated 04/20/22 @ 12:30 by NATACHA KWOK MD) Chronic obstructive pulmonary disease Emphysema lung Hypertension Surgical History (Updated 05/20/20 @ 08:47 by [employer] MA) Status post cholecystectomy Status post hysterectomy Female Reproductive History Menstrual Hx Hysterectomy: Yes Hx Tubal Ligation: No Physical Exam Physical Exam Appearance: Reports Ill-appearing, No pain distress, Thin and Other (Frail elderly female who appears both chronically and acutely ill. She is in moderate respiratory distress with pursed lip breathing, tripod stance and tachypnea.) Ill-appearing: Moderate Pain Distress: None Eyes: Reports GIL and EOMI ENT: Reports Nose normal (nasal cannula oxygen in place) and Oropharynx normal Neck: Supple Respiratory: Reports Airway patent, Breath sounds equal, Breath sounds diminished, Wheezes (inspiratory and expiratory wheezing) and Other (Pectus excavatum present. Kyphosis also present.) Cardiovascular: Reports RRR, No rub and No murmur GI/: Reports Soft, Nontender, No masses and Bowel sounds normal Musculoskeletal: Reports Normal strength, ROM intact and No edema Skin: Reports Warm, Dry and Normal color Neurological: Reports Sensation intact, Motor intact, Alert and Oriented Psychiatric: Reports Affect appropriate, Mood appropriate and Anxious Interpretation Radiology Interpretation Radiology Interpretation By: Radiologist Exam Interpreted: Portable CXR (no acute infiltrates, persistent bibasilar atelectasis) EKG Interpretation Time of EKG #1: 10:04 Rate: Normal Rhythm: Sinus Ectopy: PACs Backus: NL ST Segment: Normal Interpretation: normal sinus rhythm with PACS. Re-Evaluation Re-Evaluation Time of Re-Evaluation: 12:25 Status: Improved Vital Signs Stable: Yes Pain Level: oxygen sat 97% on 4L [place] Appearance: NAD Skin: Warm and Dry CV: RRR Physician Notification Case Discussed Physician Notified: Dr Hidalgo Time of Notification: 12:29 Physician Notified: Patient will be admitted with exacerbation COPD Critical Care Note Critical Care Note Total Critical Care Time (mins): 45 Course Course Hematology/Chemistry: 04/20/22 10:33 04/20/22 10:33 Orders, Labs, Meds: Lab Review 04/20/22 04/20/22 04/20/22 10:16 10:33 10:33 WBC 6.90 RBC 4.90 Hgb 15.1 Hct 46.1 MCV 94.1 MCH 30.8 MCHC 32.8 RDW Coeff of Serenity 13.3 Plt Count 206 Immature Gran % (Auto) 0.3 Neut % (Auto) 68.7 Lymph % (Auto) 18.3 [place] % (Auto) 9.9 Eos % (Auto) 2.2 Baso % (Auto) 0.6 Neut # (Auto) 4.8 Lymph # (Auto) 1.3 [place] # (Auto) 0.7 Eos # (Auto) 0.2 Baso # (Auto) 0.0 Immature Gran # (Auto) 0.0 Puncture Site r rad Base Excess 8.1 H O2 Saturation 88.7 L ABG pH 7.35 ABG pCO2 61.0 H ABG pO2 59.0 L* ABG HCO3 33.7 H ABG Total CO2 35.6 H Mark Test + Hemoglobin 1.7 H Oxyhemoglobin 88.4 L Carboxyhemoglobin 2.5 H Total Hemoglobin 15.9 O2 Delivery Device nc Oxygen Liter Flow 4.00 Sodium 137.3 Potassium 4.02 Chloride 97.7 L Carbon Dioxide 31.1 H Anion Gap 12.52 BUN 11.0 Creatinine 0.52 L Estimated GFR (MDRD) 114.00 BUN/Creatinine Ratio 21.15 Glucose 137.9 H Calcium 9.82 Total Bilirubin 0.95 AST 30.2 ALT 19.3 Alkaline Phosphatase 93.6 Troponin I < 0.012 Total Protein 7.99 Albumin 4.54 Globulin 3.45 Albumin/Globulin Ratio 1.31 SARS CoV-2 RNA Rapid MEJIA 04/20/22 10:40 WBC RBC Hgb Hct MCV MCH MCHC RDW Coeff of Serenity Plt Count Immature Gran % (Auto) Neut % (Auto) Lymph % (Auto) [place] % (Auto) Eos % (Auto) Baso % (Auto) Neut # (Auto) Lymph # (Auto) [place] # (Auto) Eos # (Auto) Baso # (Auto) Immature Gran # (Auto) Puncture Site Base Excess O2 Saturation ABG pH ABG pCO2 ABG pO2 ABG HCO3 ABG Total CO2 Mark Test Hemoglobin Oxyhemoglobin Carboxyhemoglobin Total Hemoglobin O2 Delivery Device Oxygen Liter Flow Sodium Potassium Chloride Carbon Dioxide Anion Gap BUN Creatinine Estimated GFR (MDRD) BUN/Creatinine Ratio Glucose Calcium Total Bilirubin AST ALT Alkaline Phosphatase Troponin I Total Protein Albumin Globulin Albumin/Globulin Ratio SARS CoV-2 RNA Rapid MEJIA Negative Orders Category Date Time Status ABG DRAW REQUEST Stat CARDIO 04/20/22 10:14 Completed EKG-(ED ONLY) Stat CARDIO 04/20/22 10:18 Completed NEBULIZER TREATMENT Stat CARDIO 04/20/22 10:18 Completed NEBULIZER TREATMENT Stat CARDIO 04/20/22 11:19 Completed ABG COOX Stat LAB 04/20/22 10:16 Completed CBC W/ AUTO DIFF Stat LAB 04/20/22 10:33 Completed CMP [COMPREHENSIVE METABOLIC PANEL] Stat LAB 04/20/22 10:33 Completed COVID [SARS COV-2 RNA RAPID MEJIA] Stat LAB 04/20/22 10:40 Completed TROPONIN I Stat LAB 04/20/22 10:33 Completed Ipratropium/Albuterol Neb [Duoneb] MEDS 04/20/22 10:18 Discontinued 3 ml NEB ONCE STA Ipratropium/Albuterol Neb [Duoneb] MEDS 04/20/22 11:19 Discontinued 3 ml NEB ONCE STA Methylprednisolone Sod Succ/Pf [Solu-Medrol 125 mg] MEDS 04/20/22 10:18 Di scontinued 125 mg IVP ONCE STA Ondansetron HCl/Pf [Zofran 4 mg/2 ml] MEDS 04/20/22 10:25 Discontinued 4 mg IVP ONCE STA CXR [CHEST, 1V AP ONLY] Stat RADS 04/20/22 10:18 Completed Medications Discontinued Medications Generic Name Dose Route Start Last Admin Trade Name Freq PRN Reason Stop Dose Admin Albuterol/Ipratropium 3 ml 04/20/22 10:18 04/20/22 10:30 Ipratropium/Albuterol Vial.Neb NEB 04/20/22 10:19 3 ml ONCE STA Administration Albuterol/Ipratropium 3 ml 04/20/22 11:19 04/20/22 11:29 Ipratropium/Albuterol Vial.Neb NEB 04/20/22 11:20 3 ml ONCE STA Administration Methylprednisolone Sodium Succinate 125 mg 04/20/22 10:18 04/20/22 10:46 Methylprednisolone Sod Succ/Pf 125 Mg/2 Ml Vial IVP 04/20/22 10:19 125 mg ONCE STA Administration Ondansetron HCl 4 mg 04/20/22 10:25 04/20/22 10:46 Ondansetron Hcl/Pf 4 Mg/2 Ml Sdv IVP 04/20/22 10:26 4 mg ONCE STA Administration Vital Signs: Temp Pulse Resp BP Pulse Ox 04/20/22 10:03 98.4 F 105 H 52 H 193/103 H 93 L Discharge Plan Discharge Patient Disposition: ADMITTED INPATIENT Discharge Problem: COPD exacerbation Prescriptions: No Action losartan-hydrochlorothiazide 1 EACH tablet 1 ea PO DAILY Rx Instructions: Aditya atenolol 25 MG tablet 25 mg PO DAILY albuterol sulfate [ProAir HFA] 1 PUFF HFA aerosol inhaler 2 puff inhalation Q6HR PRN (Reason: Bronchospasm) aspirin 81 MG tablet,chewable 81 mg PO PRN PRN (Reason: pain) albuterol sulfate 1.25 mg/3 mL Solution For Nebulization 1.25 mg INHALATION Q4-6H PRN (Reason: Wheezing) Did you review [place] [employer] REPA[employer]ER?: Not Applicable ED Provider: NATACHA KWOK Condition: Fair Physician Progress Note: []
[2022-04-20] MEDS ORDERED: SOLU-MEDROL 125 MG IVP STA (10:18)
[2022-04-20] MEDS ORDERED: DUONEB NEB STA ×2 (10:18→11:19)
[2022-04-20] MEDS ORDERED: ZOFRAN 4 MG/2 ML IVP STA (10:25)
[2022-04-20 10:37] LABS: ABG PH 7.35 (7.35-7.45)
[2022-04-20 10:38] LABS: BEecf 8.1 (-2.0-3.0); COHb 2.5 (0.5-1.5); HCO3 33.7 (21-28); MetHb 1.7 (0-1.5); TCO2 35.6 (19-24); sO2 88.7 % (94-98); tHb 15.9 g/dl (11.7-17.4)
[2022-04-20 10:39] LABS: BASOPHILS % (AUTO) 0.6 % (0.0-3.0); EOSINOPHILS # (AUTO) 0.2 K/ul (0.0-0.7); EOSINOPHILS % (AUTO) 2.2 % (0.0-7.0); HEMATOCRIT 46.1 % (37.0-47.0); HEMOGLOBIN 15.1 g/dl (12.0-16.0); IMMATURE GRANULOCYTE % (AUTO) 0.3 % (0.0-5.0); LYMPHOCYTES # (AUTO) 1.3 K/uL (0.60-3.4); LYMPHOCYTES % (AUTO) 18.3 (10.0-50.0); MEAN CORPUSCULAR HEMOGLOBIN 30.8 pg (27.0-31.0); MEAN CORPUSCULAR HGB CONC 32.8 (31.8-35.4); MEAN CORPUSCULAR VOLUME 94.1 fl (81.0-99.0); MONOCYTES # (AUTO) 0.7 K/uL (0.4-2.0); MONOCYTES % (AUTO) 9.9 (0-10); NEUTROPHILS # (AUTO) 4.8 K/ul (2.0-6.9); NEUTROPHILS % (AUTO) 68.7 % (42.2-75.2); PLATELET COUNT 206 10^3/uL (140-440); RDW COEFFICIENT OF VARIATION 13.3 % (11.6-14.8)
[2022-04-20 10:39] LABS: ABG O2 HGB 88.4 % (95-100)
[2022-04-20 10:52] LABS: ALANINE AMINOTRANSFERASE 19.3 U/L (0-35); ALBUMIN 4.54 g/dL (3.5-5.0); ALKALINE PHOSPHATASE 93.6 U/L (53-141); ASPARTATE AMINO TRANSFERASE 30.2 U/L (14-36); BILIRUBIN,TOTAL 0.95 mg/dL (0.2-1.3); CALCIUM 9.82 mg/dL (8.4-10.2); CARBON DIOXIDE 31.1 mmol/L (22-30.0); CHLORIDE 97.7 mmol/L (98-107); CREATININE 0.52 mg/dL (0.60-1.30); GLUCOSE 137.9 mg/dL (74-106); POTASSIUM 4.02 mmol/L (3.5-5.1); SODIUM 137.3 mmol/L (134.5-145); TOTAL PROTEIN 7.99 g/dL (6.3-8.2)
--- NOTE | 2022-04-20 10:52 | DI ---
EXAM: Chest, single view HISTORY: Dyspnea COMPARISON: 05/12/2019 FINDINGS / IMPRESSION: Cardiomediastinal contours appear stable. Basilar infiltrates persist. This may represent atelectasis and/or pneumonia. No definitive pleural effusion. No pneumothorax. Pulmonary opacities appear grossly stable.
[2022-04-20 11:10] LABS: TROPONIN I < 0.012 ng/ml (0.0000-0.120)
[2022-04-20] MEDS ORDERED: SOLU-MEDROL 125 MG IVP SCH (13:00)
--- NOTE | 2022-04-20 13:06 | PCM ---
Chief Complaint Chief Complaint: dyspnea History of Present Illness History of Present Illness: Patient presents with a one week history of worsening dyspnea. She has a cough productive of some yellowish sputum. Denies fever, chills, generalized weakness, chest pain, palpitations, orthopnea, PND, syncope, peripheral edema. She does have COPD and has been taking her medications as directed. Review of Systems Constitutional: Reports No symptoms Eyes: Reports No symptoms Ears: Reports No symptoms Nose: Reports No symptoms Throat: Reports No symptoms Mouth: Reports No symptoms Respiratory: Reports Cough, Shortness of air and Wheeze Cardiovascular: Reports No symptoms Gastrointestinal: Reports No symptoms Genitourinary: Reports No symptoms Neurological: Reports No symptoms Musculoskeletal: Reports No symptoms Skin: Reports No symptoms Immunology: Reports No symptoms Hematology: Reports No symptoms Endocrine: Reports No symptoms Psychiatric: Reports No symptoms Habits: Reports Tobacco use (stopped smoking one month ago) Allergies Allergies Allergy/AdvReac Type Severity Reaction Status Date / Time codeine AdvReac Unverified 04/20/22 10:26 Penicillins AdvReac Unverified 04/20/22 10:26 [facility] Medical History (Updated 04/20/22 @ 12:30 by NATACHA KWOK MD) Chronic obstructive pulmonary disease Emphysema lung Hypertension Surgical History (Updated 05/20/20 @ 08:47 by [facility] Status post cholecystectomy Status post hysterectomy Medications Medications: Medications Generic Name Dose Route Start Last Admin Trade Name Freq PRN Reason Stop Dose Admin Albuterol/Ipratropium 3 ml 04/20/22 18:00 Ipratropium/Albuterol Vial.Neb NEB RTQ6H [facility] Methylprednisolone Sodium Succinate 60 mg 04/20/22 13:00 Methylprednisolone Sod Succ/Pf 125 Mg/2 Ml Vial IVP Q8HR [facility] Body Composition Height: 5 ft 3 in Weight: 44.8 kg Body Mass Index (BMI): 17.4 Vital Signs Temperature: 98.4 F Pulse Rate: 105 Respiratory Rate: 52 Blood Pressure: 193/103 O2 Sat by Pulse Oximetry: 93 Physical Examination Appearance: Reports Ill-appearing, No pain distress, Thin and Other (Patient with moderate respiratory distress;tachypneic, tripod posturing and pursed lip breathing.) Ill-appearing: Moderate Pain Distress: None Eyes: Reports GIL, EOMI and Conjunctiva clear ENT: Reports Nose normal and Oropharynx normal Neck: Supple Respiratory: Reports Airway patent, Breath sounds equal, Breath sounds diminished, Wheezes (bilateral expiratory and inspiratory wheezes) and Other (patient with kyphosis and pectus excavatum) Cardiovascular: Reports RRR, No rub and No murmur GI/: Reports Soft, Nontender, No masses, Bowel sounds normal and No Organomegaly Musculoskeletal: Reports Normal strength, ROM intact and No edema Skin: Reports Warm, Dry and Normal color Neurological: Reports Sensation intact, Motor intact, Alert and Oriented Psychiatric: Reports Affect appropriate, Mood appropriate and Anxious Lab/Tests/Diagnostic Imaging Lab/Tests/Diagnostic Imaging: Lab Review 04/20/22 04/20/22 04/20/22 10:16 10:33 10:33 WBC 6.90 RBC 4.90 Hgb 15.1 Hct 46.1 MCV 94.1 MCH 30.8 MCHC 32.8 RDW Coeff of Serenity 13.3 Plt Count 206 Immature Gran % (Auto) 0.3 Neut % (Auto) 68.7 Lymph % (Auto) 18.3 [place] % (Auto) 9.9 Eos % (Auto) 2.2 Baso % (Auto) 0.6 Neut # (Auto) 4.8 Lymph # (Auto) 1.3 [place] # (Auto) 0.7 Eos # (Auto) 0.2 Baso # (Auto) 0.0 Immature Gran # (Auto) 0.0 Puncture Site r rad Base Excess 8.1 H O2 Saturation 88.7 L ABG pH 7.35 ABG pCO2 61.0 H ABG pO2 59.0 L* ABG HCO3 33.7 H ABG Total CO2 35.6 H Mark Test + Hemoglobin 1.7 H Oxyhemoglobin 88.4 L Carboxyhemoglobin 2.5 H Total Hemoglobin 15.9 O2 Delivery Device nc Oxygen Liter Flow 4.00 Sodium 137.3 Potassium 4.02 Chloride 97.7 L Carbon Dioxide 31.1 H Anion Gap 12.52 BUN 11.0 Creatinine 0.52 L Estimated GFR (MDRD) 114.00 BUN/Creatinine Ratio 21.15 Glucose 137.9 H Calcium 9.82 Total Bilirubin 0.95 AST 30.2 ALT 19.3 Alkaline Phosphatase 93.6 Troponin I < 0.012 Total Protein 7.99 Albumin 4.54 Globulin 3.45 Albumin/Globulin Ratio 1.31 SARS CoV-2 RNA Rapid MEJIA 04/20/22 10:40 WBC RBC Hgb Hct MCV MCH MCHC RDW Coeff of Serenity Plt Count Immature Gran % (Auto) Neut % (Auto) Lymph % (Auto) [place] % (Auto) Eos % (Auto) Baso % (Auto) Neut # (Auto) Lymph # (Auto) [place] # (Auto) Eos # (Auto) Baso # (Auto) Immature Gran # (Auto) Puncture Site Base Excess O2 Saturation ABG pH ABG pCO2 ABG pO2 ABG HCO3 ABG Total CO2 Mark Test Hemoglobin Oxyhemoglobin Carboxyhemoglobin Total Hemoglobin O2 Delivery Device Oxygen Liter Flow Sodium Potassium Chloride Carbon Dioxide Anion Gap BUN Creatinine Estimated GFR (MDRD) BUN/Creatinine Ratio Glucose Calcium Total Bilirubin AST ALT Alkaline Phosphatase Troponin I Total Protein Albumin Globulin Albumin/Globulin Ratio SARS CoV-2 RNA Rapid MEJIA Negative Orders Category Date Time Status ADMIT PATIENT INPATIENT .TO [facility] (MONITORED BED) ADMISSION 04/20/22 12:32 Active ABG DRAW REQUEST Stat CARDIO 04/20/22 10:14 Completed EKG-(ED ONLY) Stat CARDIO 04/20/22 10:18 Completed NEBULIZER TREATMENT Routine CARDIO 04/20/22 12:37 Ordered NEBULIZER TREATMENT Stat CARDIO 04/20/22 10:18 Completed NEBULIZER TREATMENT Stat CARDIO 04/20/22 11:19 Completed OXYGEN Routine CARDIO 04/20/22 12:32 Ordered ACTIVITY .Up With Assistance CARE 04/20/22 12:32 Active INTAKE & OUTPUT Q8HR CARE 04/20/22 12:33 Active TELEMETRY MONITORING TELE CARE 04/20/22 12:33 Active VITAL SIGNS Q8HR CARE 04/20/22 12:33 Active REGULAR DIET DIETARY 04/20/22 Lunch Ordered ABG COOX Stat LAB 04/20/22 10:16 Completed CBC W/ AUTO DIFF Stat LAB 04/20/22 10:33 Completed CMP [COMPREHENSIVE METABOLIC PANEL] Stat LAB 04/20/22 10:33 Completed COVID [SARS COV-2 RNA RAPID MEJIA] Stat LAB 04/20/22 10:40 Completed TROPONIN I Stat LAB 04/20/22 10:33 Completed Ipratropium/Albuterol Neb [Duoneb] MEDS 04/20/22 10:18 Discontinued 3 ml NEB ONCE STA Ipratropium/Albuterol Neb [Duoneb] MEDS 04/20/22 11:19 Discontinued 3 ml NEB ONCE STA Ipratropium/Albuterol Neb [Duoneb] MEDS 04/20/22 18:00 Active 3 ml NEB RTQ6H Methylprednisolone Sod Succ/Pf [Solu-Medrol 125 mg] MEDS 04/20/22 10:18 Discontinued 125 mg IVP ONCE STA Methylprednisolone Sod Succ/Pf [Solu-Medrol 125 mg] MEDS 04/20/22 13:00 Active 60 mg IVP Q8HR Ondansetron HCl/Pf [Zofran 4 mg/2 ml] MEDS 04/20/22 10:25 Discontinued 4 mg IVP ONCE STA RESUSCITATION STATUS Routine OTHERS 04/20/22 12:32 Ordered CXR [CHEST, 1V AP ONLY] Stat RADS 04/20/22 10:18 Completed Medications Generic Name Dose Route Start Last Admin Trade Name Freq PRN Reason Stop Dose Admin Albuterol/Ipratropium 3 ml 04/20/22 18:00 Ipratropium/Albuterol Vial.Neb NEB RTQ6H [facility] Methylprednisolone Sodium Succinate 60 mg 04/20/22 13:00 Methylprednisolone Sod Succ/Pf 125 Mg/2 Ml Vial IVP Q8HR [facility] Discontinued Medications Generic Name Dose Route Start Last Admin Trade Name Freq PRN Reason Stop Dose Admin Albuterol/Ipratropium 3 ml 04/20/22 10:18 04/20/22 10:30 Ipratropium/Albuterol Vial.Neb [facility] 04/20/22 10:19 3 ml ONCE STA Administration Albuterol/Ipratropium 3 ml 04/20/22 11:19 04/20/22 11:29 Ipratropium/Albuterol Vial.Neb [facility] [place] 04/20/22 11:20 3 ml ONCE STA Administration Methylprednisolone Sodium Succinate 125 mg 04/20/22 10:18 04/20/22 10:46 Methylprednisolone Sod Succ/Pf 125 Mg/2 Ml Vial IVP 04/20/22 10:19 125 mg ONCE STA Administration Ondansetron HCl 4 mg 04/20/22 10:25 04/20/22 10:46 Ondansetron Hcl/Pf 4 Mg/2 Ml Sdv IVP 04/20/22 10:26 4 mg ONCE STA Administration Assessment (1) COPD exacerbation: Status: Acute Code(s): J44.1 - Chronic obstructive pulmonary disease with (acute) exacerbation SNOMED Code(s): 578634946 Plan Plan: Patient to be admitted for exacerbation of COPD. She will receive duonebs and IV solumedrol.
[2022-04-20 13:38] VITALS: BMI 17.3
[2022-04-20] MEDS ORDERED: VENTOLIN HFA (PER PUFF-WITH SPACER) IH PRN (14:04)
[2022-04-20] MEDS ORDERED: ZOFRAN 4 MG/2 ML IVP PRN (15:27)
[2022-04-20] MEDS ORDERED: LEVAQUIN 500 MG/100 ML D5W 500 MG/100 ML BAG IV SCH (15:30)
[2022-04-20] MEDS: TENORMIN PO SCH ×2 (15:43→20:35)
[2022-04-20] MEDS: LEVAQUIN 750 MG/150 ML D5W 750 MG/150 ML BAG IV SCH (15:44)
--- NOTE | 2022-04-20 15:56 | HP ---
DATE OF SERVICE: 04/20/22 REASON FOR HOSPITALIZATION/HISTORY OF PRESENT ILLNESS: 77 year old white female who was admitted through the emergency room after presenting with shortness of breath and cough. Shortness of breath has got progressively worse. 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 PAST MEDICAL HISTORY: Chronic respiratory failure Oxygen dependent Weight loss Hypertension Dyslipidemia History of right leg edema Right sciatica Generalized osteoarthritis Endstage COPD Heavy smoker Atherosclerotic heart disease Diverticulosis Osteoporosis Kyphosis Right knee osteoarthritis Hypothyroidism Peripheral vascular disease Generalized anxiety Secondary polycythemia due to smoking Noncompliant with diet, medication, lifestyle and followup PAST SURGICAL HISTORY: Last colonoscopy [address] Durán and refused repeat Not had mammogram in many years due to referral. Cholecystectomy REVIEW OF SYSTEMS: CONSTITUTIONAL: No night sweats. Fatigue. No fever or chills. Weakness. HEENT: Eyes: No visual changes. No eye pain. No eye discharge. ENT: No runny nose. No epistaxis. No sinus pain. No sore throat. No odynophagia. No ear pain. No congestion. RESPIRATORY: Cough, no congestion. No hemoptysis. Shortness of breath. CARDIOVASCULAR: No angina symptoms. No CHF symptoms. No atypical chest pain for CAD. No palpitations. No PND. No orthopnea. GASTROINTESTINAL: No abdominal pain. No nausea or vomiting. No diarrhea or constipation. No hematemesis. No hematochezia. GENITOURINARY: No urgency. No frequency. No dysuria. No hematuria. No obstructive symptoms. No discharge. No pain. No significant abnormal bleeding. MUSCULOSKELETAL: No musculoskeletal pain. No joint swelling. No arthritis. NEUROLOGICAL: No headache. No neck pain. No syncope. No seizures. No dizziness. PSYCHIATRIC: Not anxious. No depression. No suicidal thoughts. No homicidal thoughts. SKIN: No rash. No lesions. No wounds. ENDOCRINE: No unexplained weight loss. No weight gain. HEMATOLOGIC/LYMPHATIC: No anemia. No purpura. No petechiae. No prolonged or excessive bleeding. No palpable lymph nodes. PERSONAL/FAMILY/SOCIAL HISTORY: She lives at home with her . Heavy smoker. No alcohol or illicit drug use. She is COVID vaccinated with Moderna and has had one Booster. MEDICATIONS: Atenolol 25mg PO daily ProAir HFA two puff inhalation Q 6 hours PRN Aspirin 81mg PO PRN Losartan-Hydrochlorothiazide 100-25mg PO daily Albuterol sulfate 1.25mg inhalation Q 4-6 hours PRN. ALLERGIES: Codeine Penicillin PHYSICAL EXAMINATION: VITAL SIGNS: Temperature 98.4, heart rate 105, respiratory rate 50, blood pressure 193/103, pulse ox 93% on 4 liters. HEENT: Head normocephalic, atraumatic. Eyes: Extraocular muscles are intact. Pupils are equal, round and reactive to light and accommodation. Ears: No lesions. Nose appeared normal. Throat: No exudate or erythema. NECK: Supple. No JVD, no carotid bruit. No lymphadenopathy or thyromegaly. LUNGS: Clear to auscultation. Percussion note normal. Chest symmetrical. HEART: S1, S2, no S3. No murmur. No cyanosis or clubbing. No ascites. Pulses: Dorsalis pedis and posterior tibial pulses +1 to +2 bilaterally. ABDOMEN: Soft. Nontender. Bowel sounds active. No CVA tenderness. No mass felt. EXTREMITIES: No edema. Full range of motion of all extremities, equal. NEUROLOGIC: No focal deficit. Cranial nerves II through XII are grossly intact. No headache, no double vision or headache. SKIN: Not dry. Intact. Turgor - normal. LYMPHATIC: No palpable lymph nodes/no lymphedema. MUSCULOSKELETAL: Normal joints with no swelling. Muscle tone is normal. LABS: WBC 6.9, hgb 15.1, hct 46.1, plt count 206, sodium 137, potassium 4.02, BUN 11, creatinine 0.52, glucose 137. ABG on 4 liters O2 saturation 88, pH 7.35, pCO2 61, pO2 59, bicarb 33.7. Rapid COVID PCR was negative. Chest x-ray showed bilateral lower infiltrate versus atelectasis. No acute infiltrate. ASSESSMENT: 1. Acute respiratory failure 2. Acute COPD exacerbation 3. Underlining chronic respiratory failure with endstage COPD 4. Hypertension 5. Anxiety 6. Sinus tachycardia PLAN: 1. We will admit 2. Routine telemetry orders 3. CBC and CMP daily 4. Continue Oxygen 5. CT chest with and without contrast 6. Increase Atenolol to 25mg BID 7. Continue home medications 8. Levaquin 500mg IV daily 9. Solu-Cortef 125mg IV Q 8 hours 10.DUO NEBS TID SCHEDULED 11.Pulmicort NEB 1mg BID scheduled 12.Regular diet 13.ABG in the morning on 4 liters 14.Zofran 4mg IV Q 6 hours PRN 15.U/A 16. Sputum for culture and sensitivity 17. We will do respiratory panel PCR 18. Follow closely. TIME SPENT: More than 70 minutes. MTDD
[2022-04-20] MEDS: DUONEB NEB SCH ×2 (17:07→23:03)
[2022-04-20] MEDS: PULMICORT 1 MG/2 ML NEB SCH (17:08)
[2022-04-20 17:55] LABS: BILIRUBIN,URINE Negative (NEGATIVE); CLARITY,URINE Clear (CLEAR); COLOR,URINE Yellow (YELLOW); GLUCOSE, URINE (UA) Negative (NEGATIVE); KETONES,URINE Trace (NEGATIVE); LEUKOCYTE ESTERASE ,URINE Negative (NEGATIVE); NITRITE,URINE Negative (NEGATIVE); PH,URINE 6.5 (5-9); PROTEIN,URINE 1+ (NEGATIVE); URINE, BLOOD Trace-intact (NEGATIVE)
[2022-04-20 18:01] LABS: MUCUS,URINE 2+ (NOT PRESENT); URINE WBC, MICROSCOPIC 0-2 (0-2)
[2022-04-20 18:02] LABS: AMORPHOUS SEDIMENT,UR TRACE (NOT PRESENT)
[2022-04-20] MEDS: COZAAR PO SCH (20:35)
[2022-04-20] MEDS: HYDROCHLOROTHIAZIDE PO SCH (20:37)
[2022-04-20 20:49] LABS: BORDETELLA PARAPERTUSSIS (PCR) NOT DETECTED (NOT DETECT); BORDETELLA PERTUSSIS (PCR) NOT DETECTED (NOT DETECT); CHLAMYDIA PNEUMONIAE (PCR) NOT DETECTED (NOT DETECT); CORONAVIRUS 229E (PCR) NOT DETECTED (NOT DETECT); CORONAVIRUS HKU1 (PCR) NOT DETECTED (NOT DETECT); CORONAVIRUS NL63 (PCR) NOT DETECTED (NOT DETECT); CORONAVIRUS OC43 (PCR) NOT DETECTED (NOT DETECT); HUMAN METAPNEUMOVIRUS (PCR) NOT DETECTED (NOT DETECT); HUMAN RHINOVIRUS/ENTEROV (PCR) NOT DETECTED (NOT DETECT); INFLUENZA B (PCR) NOT DETECTED (NOT DETECT); MYCOPLASMA PNEUMONIAE (PCR) NOT DETECTED (NOT DETECT); PARAINFLUENZA VIRUS 1 (PCR) NOT DETECTED (NOT DETECT); PARAINFLUENZA VIRUS 2 (PCR) NOT DETECTED (NOT DETECT); PARAINFLUENZA VIRUS 3 (PCR) NOT DETECTED (NOT DETECT); PARAINFLUENZA VIRUS 4 (PCR) NOT DETECTED (NOT DETECT); RESPIRATORY SYNCYTIAL V (PCR) NOT DETECTED (NOT DETECT); SARS_COV_2 (PCR) NOT DETECTED (NOT DETECT)
[2022-04-20] MEDS ORDERED: TENORMIN PO SCH (21:00)
[2022-04-20] MEDS: DEXTROSE 5%-1/2NS IV SOLUTION 1,000 ML IV SCH (21:00)
[2022-04-20 21:37] LABS: ADENOVIRUS (PCR) NOT DETECTED (NOT DETECT)
[2022-04-20] MEDS: SOLU-MEDROL 125 MG IVP SCH (21:46)
[2022-04-21 05:16] LABS: ABG PH 7.41 (7.35-7.45)
[2022-04-21 05:18] LABS: BEecf 6.5 (-2.0-3.0); COHb 3.3 (0.5-1.5); HCO3 31.1 (21-28); MetHb 1.2 (0-1.5); TCO2 32.6 (19-24); sO2 86.1 % (94-98)
[2022-04-21 05:19] LABS: ABG O2 HGB 87.8 % (95-100); tHb 14.2 g/dl (11.7-17.4)
[2022-04-21] MEDS: DUONEB NEB SCH ×3 (05:27→19:17)
[2022-04-21] MEDS: PULMICORT 1 MG/2 ML NEB SCH ×2 (05:27→19:17)
[2022-04-21 05:30] LABS: HEMATOCRIT 45.2 % (37.0-47.0); HEMOGLOBIN 14.5 g/dl (12.0-16.0); MEAN CORPUSCULAR HEMOGLOBIN 30.2 pg (27.0-31.0); MEAN CORPUSCULAR HGB CONC 32.1 (31.8-35.4); MEAN CORPUSCULAR VOLUME 94.2 fl (81.0-99.0); PLATELET COUNT 182 10^3/uL (140-440); RDW COEFFICIENT OF VARIATION 13.2 % (11.6-14.8); WHITE BLOOD COUNT 4.16 K/ul (4.6-10.2)
[2022-04-21 05:43] LABS: ALANINE AMINOTRANSFERASE 18.7 U/L (0-35); ALBUMIN 3.97 g/dL (3.5-5.0); ALKALINE PHOSPHATASE 64.8 U/L (53-141); ASPARTATE AMINO TRANSFERASE 30.7 U/L (14-36); BILIRUBIN,TOTAL 0.8 mg/dL (0.2-1.3); BLOOD UREA NITROGEN 16.6 mg/dL (7-17); CALCIUM 9.58 mg/dL (8.4-10.2); CARBON DIOXIDE 32.9 mmol/L (22-30.0); CHLORIDE 98.1 mmol/L (98-107); CREATININE 0.62 mg/dL (0.60-1.30); GLUCOSE 163.7 mg/dL (74-106); POTASSIUM 4.56 mmol/L (3.5-5.1); SODIUM 135.8 mmol/L (134.5-145); TOTAL PROTEIN 6.86 g/dL (6.3-8.2)
[2022-04-21 05:45] LABS: ANISOCYTOSIS NOT PRESENT (NOT PRESENT)
[2022-04-21] MEDS: SOLU-MEDROL 125 MG IVP SCH ×3 (06:48→20:49)
[2022-04-21] MEDS: TENORMIN PO SCH (08:30)
[2022-04-21] MEDS: LEVAQUIN 750 MG/150 ML D5W 750 MG/150 ML BAG IV SCH (08:31)
[2022-04-21] MEDS: DEXTROSE 5%-1/2NS IV SOLUTION 1,000 ML IV SCH (08:37)
--- NOTE | 2022-04-21 09:05 | PCM.PROG ---
Attending Provider: ATTENDING PROVIDER: Dr. CELI HIDALGO This patient is seen with Viola Quiroz, Nurse Practitioner. DATE OF SERVICE: 04/21/22 SUBJECTIVE: This 77 year old /WHITE F was hospitalized 04/20/22. Resting comfortably this morning breathing has significantly improved. Much less short o f breath. The patient declined CT of chest with contrast, will do without. No fever. She has had nausea and vomiting through the night. REVIEW OF SYSTEMS: CONSTITUTIONAL: No night sweats. No fatigue, malaise, lethargy. No fever or chills. Weakness. HEENT: Eyes: No visual changes. No eye pain. No eye discharge. ENT: No runny nose. No epistaxis. No sinus pain. No odynophagia. No congestion. RESPIRATORY: Cough, no congestion. No hemoptysis. Shortness of breath. CARDIOVASCULAR: No angina symptoms. No CHF symptoms. No atypical chest pain for CAD. No palpitations. No orthopnea.. GASTROINTESTINAL: No abdominal pain. Nausea. No diarrhea or constipation. No hematemesis. No hematochezia. GENITOURINARY: No urgency. No frequency. No dysuria. No hematuria. No obstructive symptoms. No discharge. No pain. No significant abnormal bleeding. MUSCULOSKELETAL: No musculoskeletal pain; no joint swelling. NEUROLOGICAL: Awake, alert, oriented to time, place and person. No headache. No neck pain. No syncope. No seizures. No dizziness. PSYCHIATRIC: Not anxious. No depression. No suicidal thoughts. No homicidal thoughts. SKIN: No rash. No lesions. No wounds. ENDOCRINE: No unexplained weight loss. No weight gain. HEMATOLOGIC/LYMPHATIC: No anemia. No purpura. No petechiae. No prolonged or excessive bleeding. No palpable lymph nodes. PHYSICAL EXAMINATION: GENERAL: The patient is awake, alert and oriented, lying in bed in no distress. VITAL SIGNS: Temperature 98.5 F, Pulse 61, Respiratory Rate 14, BP 118/58, Pulse Ox 95% HEENT: Head normocephalic, atraumatic. Eyes: Extraocular muscles are intact. Pupils are equal, round and reactive to light and accommodation. Ears: No lesions. Nose appeared normal. Throat: No exudate or erythema. NECK: Supple. No JVD, no carotid bruit. No lymphadenopathy or thyromegaly. LUNGS: Severely diminished breath sounds. Clear to auscultation. Percussion note normal. Chest symmetrical. HEART: S1, S2, no S3. No murmurs. No cyanosis or clubbing. No ascites. Pulses: Dorsalis pedis and posterior tibial pulses +1 to +2 both sides. ABDOMEN: Soft. Non-tender. Bowel sounds active. No CVA tenderness. No mass felt. EXTREMITIES: No edema. Full range of motion of all extremities, equal. NEUROLOGIC: No focal deficit. Cranial nerves II through XII are grossly intact. No headache. No double vision. SKIN: Not dry. Intact. Turgor-normal. LYMPHATIC: No palpable lymph nodes/no lymphedema. MUSCULOSKELETAL: Normal joints with no swelling. Muscle tone is normal. LAB REVIEW: 04/21/22 05:08 04/21/22 05:08 04/21/22 05:08: Sodium 135.8, Potassium 4.56, Chloride 98.1, Carbon Dioxide 32.9 H, Anion Gap 9.36, BUN 16.6, Creatinine 0.62, Estimated GFR (MDRD) 93.00, BUN/Creatinine Ratio 26.77, Glucose 163.7 H, Calcium 9.58, Total Bilirubin 0.80, AST 30.7, ALT 18.7, Alkaline Phosphatase 64.8 D, Total Protein 6.86, Albumin 3.97, Globulin 2.89, Albumin/Globulin Ratio 1.37 04/21/22 05:08: WBC 4.16 L, RBC 4.80, Hgb 14.5, Hct 45.2, MCV 94.2, MCH 30.2, MCHC 32.1, RDW Coeff of Serenity 13.2, Plt Count 182, Neutrophils % (Manual) 81.0 H, Lymphocytes % (Manual) 11.0, Monocytes % (Manual) 6.0, Reactive Lymphocytes 4.0, Anisocytosis Not present 04/21/22 05:08: Puncture Site Lb, Base Excess 6.5 H, O2 Saturation 86.1 L, ABG pH 7.41, ABG pCO2 49.0 H, ABG pO2 51.0 L*, ABG HCO3 31.1 H, ABG Total CO2 32.6 H , Mark Test +, Hemoglobin 1.2, Oxyhemoglobin 87.8 L, Carboxyhemoglobin 3.3 H, Total Hemoglobin 14.2, O2 Delivery Device [facility], Oxygen Liter Flow 4.00, FiO2 % 40.0 04/20/22 20:00: Adenovirus (PCR) Not detected, B. pertussis DNA (PCR) Not detected, B.parapertussis DNA PCR Not detected, C. pneumoniae DNA (PCR) Not dete cted, Coronavirus OC43 (PCR) Not detected, Coronavirus HKU1 (PCR) Not detected, Coronavirus 229E (PCR) Not detected, Coronavirus NL63 (PCR) Not detected, Human Metapneumovir PCR Not detected, Influenza Type A (PCR) Not detected, Influenza B (RT-PCR) Not detected, M. pneumoniae (PCR) Not detected, Parainfluenza 1 (PCR) Not detected, Parainfluenza 2 (PCR) Not detected, Parainfluenza 3 (PCR) Not dete cted, Parainfluenza 4 (PCR) Not detected, RSV (PCR) Not detected, Entero/Rhino (PCR) Not detected, SARS-CoV-2 (PCR) Not detected 04/20/22 10:40: SARS CoV-2 RNA Rapid MEJIA Negative 04/20/22 10:33: Sodium 137.3, Potassium 4.02, Chloride 97.7 L, Carbon Dioxide 31.1 H, Anion Gap 12.52, BUN 11.0, Creatinine 0.52 L, Estimated GFR (MDRD) 114.00, BUN/Creatinine Ratio 21.15, Glucose 137.9 H, Calcium 9.82, Total Bilirubin 0.95, AST 30.2, ALT 19.3, Alkaline Phosphatase 93.6, Troponin I < 0.012, Total Protein 7.99, Albumin 4.54, Globulin 3.45, Albumin/Globulin Ratio 1.31 04/20/22 10:33: WBC 6.90, RBC 4.90, Hgb 15.1, Hct 46.1, MCV 94.1, MCH 30.8, MCHC 32.8, RDW Coeff of Serenity 13.3, Plt Count 206, Immature Gran % (Auto) 0.3, Neut % (Auto) 68.7, Lymph % (Auto) 18.3, [place] % (Auto) 9.9, Eos % (Auto) 2.2, Baso % (Auto) 0.6, Neut # (Auto) 4.8, Lymph # (Auto) 1.3, [place] # (Auto) 0.7, Eos # (Auto) 0.2, Baso # (Auto) 0.0, Immature Gran # (Auto) 0.0 04/20/22 10:16: Puncture Site r rad, Base Excess 8.1 H, O2 Saturation 88.7 L, ABG pH 7.35, ABG pCO2 61.0 H, ABG pO2 59.0 L*, ABG HCO3 33.7 H, ABG Total CO2 35.6 H, Mark Test +, Hemoglobin 1.7 H, Oxyhemoglobin 88.4 L, Carboxyhemoglobin 2.5 H, Total Hemoglobin 15.9, O2 Delivery Device nc, Oxygen Liter Flow 4.00 04/20/22 05:40: Urine Color Yellow, Urine Clarity Clear, Urine pH 6.5, Ur Specific [place] >=1.030, Urine Protein 1+ H, Urine Glucose (UA) Negative, Urine Ketones Trace H, Urine Blood Trace-intact H, Urine Nitrite Negative, Urine Bilirubin Negative, Urine Urobilinogen 1.0 H, Ur Leukocyte Esterase Negative, Urine Microscopic RBC 2-5, Urine Microscopic WBC 0-2, Ur Squamous Epith Cells 2- 5, Amorphous Sediment Trace, Urine Mucus 2+ ASSESSMENT: Please see below. 1. Acute respiratory failure 2. Acute COPD exacerbation 3. Endstage COPD 4. Hypertension PLAN: 1. CT of chest with out 2. Decrease Atenolol to once a day 3. 2D echo Plan and coordination of the patient's care discussed in the presence of Kiss Machine Operator and nurse. SCRIBED BY: AARON LOPEZ Communications Analyst scribed while in presence of service performed by Dr. Hidalgo/Viola Quiroz APRN on 04/21/22 ([id number])
--- NOTE | 2022-04-21 10:54 | RS.OTINEVL ---
Subjective - Patient information Date of Evaluation: 04/21/22 Date of Arrival on Unit: 04/20/22 Admitted From:: Emergency Dept Diagnosis: COPD exacerbation, increased SOA PRECAUTIONS: Productive cough, unable to lie flat Usual Living Arrangement: With Spouse Living Arrangement Comments: Lives with spouse. OLDEST SON TEMPORARILY LIVES WITH THEM Home Environment: House, Stairs (few), Rail Medical History: COPD Medical History Comments:: Emphysema, HTN, s/p cholecystectomy, and hysterectomy Subjective Information/ Patient Comments:: "I like to play on the computer." - Level of function Current Level of Function: Partially Dependent Current Equipment Used at Home: HOME OXYGEN CONCENTRATOR (USES COMPANY CALLED [employer]), NEBULIZER, BLOOD PRESSURE CUFF Pain Assessment - Pain Pain Score: 0 Interventions - Objective Patient Orientation: Person, Place, Situation Current Interventions: IV's, Oxygen, Telemetry Observation: Pt appears weak and SOA with activity. Interventions - ROM Right Upper Extremity AROM: WFL's Left Upper Extremity AROM: WFL's - Strength Right Upper Extremity Strength: Mild Weakness Left Upper Extremity Strength: Mild Weakness - Sensation Right Upper Extremity Sensation: Intact/Normal Left Upper Extremity Sensation: Intact/Normal Balance - Sitting Balance Static Sitting Balance: Good Dynamic Sitting Balance: Good - Standing Balance Static Standing Balance: Poor (Pt would benefit from a RW at home.) Dynamic Standing Balance: Poor ADL Skills - Self Feeding Self Feeding: Independent - Grooming Grooming: CGA - Dressing Dressing UE: Independent Dressing LE: Min Assist - Toilet Management Toilet Hygiene: Independent Toilet Clothing Management: CGA Functional Mobility - Bed Mobility Rolling R/L: Independent Supine to Sit: Independent Sit to Supine: CGA - Transfers Sit to Stand: [facility] Stand to Sit: [facility] Stand Pivot Transfers: CGA - Ambulation Weight Bearing Status: FWB Assistive Device Used: Rolling Walker - Safety Awareness Safety Awareness: Good CARON INDEX SCORE: . Additional Treatment Performed - Time with patient Length of Evaluation: 20 Total treatment time: 20 Activities Do you enjoy playing games?: Yes Would you be interested in leaving your room for activities?: Yes Would you enjoy group activities?: Yes Do you have difficulty with your vision?: No What types of things do you enjoy doing? Any Hobbies?: Computer Patient Interests:: Computer/Internet Patient Education Patient Education: Home Safety, Education of Plan of Care Teaching Recipient: Patient Teaching Methods: Discussion, Demonstration Assessment Problem List:: Decreased level of function, Decreased safety/Risk of falls, Weakness Rehab Potential: Fair Further Therapy Indicated?: Yes Evaluation Complexity: HISTORY: Medium, EXAM OF BODY SYSTEMS: Medium, CLINICAL DECISION MAKING: Medium Patient's Goal(s): To get stronger and return home. Short Term Goals - Goals GOAL 1: Pt to increase dyn. std. bal to Fair+. Goal to be met by: 04/24/22 GOAL 2: Pt to increase BUE strength to 4+/5. Goal to be met by: 04/24/22 GOAL 3: Pt to increase toilet transfers to CGA. Goal to be met by: 04/24/22 GOAL 4: Pt to be Independent with sink level ADLs. Goal to be met by: 04/24/22 Contracts Manager Goals GOAL 1: Pt to increase independence of ADLS to sup. Goal to be met by: 04/28/22 GOAL 2: Pt to increase BUE strength to 5/5. Goal to be met by: 04/28/22 GOAL 3: Pt to increase dyn. std. bal. to G-. Goal to be met by: 04/28/22 Plan Plan of Care: Therapeutic EX, Neuromuscular Re-Educ, Therapeutic Activity, Self- Care/Home Management Frequency of Treatment: 1-2 X day, as tolerated Duration of Treatment: 1 Week Anticipated Discharge Destination: Home Treatment Diagnosis (ICD 10 Codes): Weakness M62.81, Z74.1 Need for assistance with personal care Has the Physician been added for Co-signature?: Yes
[2022-04-21] MEDS ORDERED: OCEAN NASAL SPRAY NAS PRN (12:28)
--- NOTE | 2022-04-21 13:02 | RS.PTINEVL ---
Subjective - Patient information Date of Evaluation: 04/21/22 Date of Arrival on Unit: 04/20/22 Admitted From:: Home Diagnosis: Acute respiratory failure, COPD exacerbation Usual Living Arrangement: With Spouse Home Environment: House, Stairs (few), Rail Medical History: Hypertension, COPD, Arthritis Surgical History: Cholecystectomy, Hysterectomy Medications: see chart Subjective Information/ Patient Comments:: pt states that she is tired today and is awaiting a CT scan. pt is agreeable to participate. pt reports that she lives with her elderly and they take care of one another. - Level of function Prior to this admission, the patient could do the following:: Independent Selfcare, Independent Ambulation (without AD), Drive (occasionally) Abilities prior to this admission: pt required some assist from with ADL's Current Level of Function: Partially Dependent Current Equipment Used at Home: HOME OXYGEN CONCENTRATOR (USES COMPANY CALLED [employer]), NEBULIZER, BLOOD PRESSURE CUFF Interventions - Objective Patient Orientation: Person, Place, Situation Current Interventions: IV's, Oxygen (4 liters), Telemetry Observation: forward head, rounded shlds, increased kyphosis Range of Motion - ROM Right Upper Extremity AROM: WFL's Left Upper Extremity AROM: WFL's Right Lower Extremity AROM: Slight limitation (knee flex slightly decreased) Left Lower Extremity AROM: WFL's Muscle Strength - Muscle Strength Right Upper Extremity Strength: Mild Weakness (grossly 4/5) Left Upper Extremity Strength: Mild Weakness (grossly 4/5) Right Lower Extremity Strength: Mild Weakness (hip flex 4-/5, knee flex/ext 4/5, ankle DF/PF 4/5) Left Lower Extremity Strength: Mild Weakness (hip flex 4-/5, knee flex/ext 4/5, ankle DF/PF 4/5) Sensation - Sensation Right Upper Extremity Sensation: Intact/Normal Left Upper Extremity Sensation: Intact/Normal Right Lower Extremity Sensation: Intact/Normal Left Lower Extremity Sensation: Intact/Normal Palpation Palpation Findings: None/Normal Balance - Sitting Balance and Reactions Static Sitting Balance: Good Dynamic Sitting Balance: Fair (fair+) Sitting Equilibrium Reactions: Delayed Left, Delayed Right Sitting Protective Reactions: Delayed Left, Delayed Right - Standing Balance and Reactions Static Standing Balance: Poor (poor+) Dynamic Standing Balance: Poor Standing Equilibrium Reactions: Delayed Left, Delayed Right Standing Protective Reactions: Delayed Left, Delayed Right Functional Mobility - Bed Mobility Rolling R/L: Supervision Supine to Sit: Supervision Sit to Supine: CGA - Transfers Sit to Stand: CGA Stand to Sit: CGA - Safety Awareness Safety Awareness: Fair CARON INDEX SCORE: n/a Ambulation - Ambulation Assistive Device Used: Rolling Walker Orthotic/Prosthetic Device: No Distance: 100ft Assistance needed with Ambulation: CGA, 1 person assist, 2 person assist Quality of Ambulation: amb CGA 1 +1 for IV and O2 (4 liters) Gait Deviations: Forward posture, Short stride Factors Affecting Ambulation: Decreased Balance, Breathing/O2 Saturation, Weakness, Limited Endurance Treatment time - Time with patient Length of Evaluation: 19 Total treatment time: 26 Patient Education - Education Patient Education: Activity Modification, Education of Plan of Care Teaching Recipient: Patient Teaching Methods: Discussion, Demonstration Comments: discussion regarding POC as well as safety with transfers Assessment - Assessment Problem List:: Decreased level of function, Requires training/education, Decreased safety/Risk of falls Rehab Potential: Fair Further Therapy Indicated?: Yes Candidate for Swing Bed for Therapy Services?: Feel like pt would not be a candidate for swing bed for therapy due to close to her prior level of function. Evaluation Complexity: HISTORY: Medium, EXAM OF BODY SYSTEMS: Medium, CLINICAL PRESENTATION: Medium, CLINICAL DECISION MAKING: Medium Patient's Goal(s): Get stronger and go home. Short Term Goals GOAL #1: pt independent with rolling and scooting in bed. Goal to be met by: 04/24/22 GOAL #2: pt transfer sup to/from sit independent. Goal to be met by: 04/24/22 GOAL #3: Transfer sit to/from stand SBA Goal to be met by: 04/24/22 GOAL #4: pt amb 120ft with rwx with CGA w O2 no LOB Goal to be met by: 04/24/22 GOAL #5: Improve BLE strength 4+/5 Goal to be met by: 04/24/22 [employer] Reading Teacher Goals GOAL #1: pt transfer sit to/from stand independently Goal to be met by: 04/26/22 GOAL #2: pt amb with rwx functional household distances w rwx independently. Goal to be met by: 04/26/22 GOAL #3: Improve dyn stand balance fair- Goal to be met by: 04/26/22 Plan Plan of Care: Therapeutic EX, Therapeutic Activity Other:: gait training Frequency of Treatment: 1-2 X day, as tolerated Duration of Treatment: 5 days Anticipated Discharge Destination: Home Treatment Diagnosis (ICD 10 Codes): impaired balance R 26.81. difficulty walking R 26.2. weakness M62.81 Has the Physician been added for Co-signature?: Yes
--- NOTE | 2022-04-21 13:40 | CT ---
EXAM: CT chest without contrast HISTORY: Shortness of breath COMPARISON: Correlation with chest radiograph from 04/20/[address] chest from 02/2013 TECHNIQUE: Serial axial images of the chest were obtained from the lung apices to the upper abdomen without contrast. These were viewed in multiple planes. FINDINGS: Enlarged, heterogeneous thyroid gland with substernal extension. Aneurysm of the ascending thoracic aorta measuring 6.1 cm. This has increased in diameter since the previous CT chest examination of 11/02/2012 (4.6 cm on that study). The diameter of the descending t horacic aorta has slightly increased in diameter measuring 3.6 cm on today's examination. Vascular c alcifications. Coronary artery calcifications. Pronounced pectus excavatum with associated leftward mediastinal shift and impression on the anterior aspect of the heart. The heart is enlarged. Consolidation in the right lower lobe centrally. The right lower lobe bronchus is occluded. Less pr onounced consolidation in the left lower lobe centrally. No pleural effusion or pneumothorax. Emphysema. IMPRESSION: Consolidation in the right lower lobe centrally. The right lower lobe bronchus is occluded and this appearance could be secondary to a combination of atelectasis and airspace disease. There is less pr onounced consolidation in the left lower lobe centrally. Recommend correlation with bronchoscopy. Moderate emphysema. Ascending thoracic aortic aneurysm has increased in diameter now measuring 6.1 cm compared 4.[address] chest examination from 11/02/2012. Enlarged, heterogeneous, substernal thyroid gland, similar to the previous CT examination. Consider follow-up thyroid ultrasound as clinically indicated. Severe pectus deformity is again noted. Please see above description and associated and additional f indings. All CT scans are performed using dose optimization techniques as appropriate to the performed exam an d include at least one of the following: Automated exposure control, adjustment of the mA and/or kV according t o size, and the use of iterative reconstruction technique.
--- NOTE | 2022-04-21 14:19 | PN ---
DATE OF SERVICE: 04/21/22 SUBJECTIVE: The patient was seen and examined with the Nurse Practitioner. The patient's condition has improved, her arterial blood gasses on 4 liters pO2 of 51, pCo2 of 49 with pH 7.41. She is not in any distress. Her saturation was 95% with 4 liters. Arterial blood gasses reflected the wrong parameter. The patient's appetite has improved. No vomiting and no nausea. Electrolytes are normal. TIME SPENT: More than 30 minutes. Plan and coordination of the patient's care discussed in the presence of nurse. MO
--- NOTE | 2022-04-21 14:27 | PN ---
DATE OF SERVICE: 04/20/22 ADMIT NOTE SUBJECTIVE: 77 year old white female hospitalized with acute exacerbation of COPD with hypoxemia with pO2 of 59, pCo2 61 with pH 7.35 with 88% saturation done on 4 liters. The patient was in respiratory distress when she arrived to the emergency room. Chested her out, two hours after she was in the emergency room she already had Solu-Cortef and two NEBS treatment at that time the patient was quietly breathing with practically no distress.Her heart rate was 60 per minute with blood pressure of 120/60. REVIEW OF SYSTEMS: CONSTITUTIONAL: No night sweats. No fatigue, malaise, lethargy. No fever or chills. HEENT: Eyes: No visual changes. No eye pain. No eye discharge. ENT: No runny nose. No epistaxis. No sinus pain. No sore throat. No odynophagia. No congestion. RESPIRATORY: No cough, no congestion. No hemoptysis. No shortness of breath. CARDIOVASCULAR: No angina symptoms. No CHF symptoms. No atypical chest pain for CAD. No palpitations. No PND. No orthopnea. GASTROINTESTINAL: No abdominal pain. No nausea or vomiting. No diarrhea or constipation. No hematemesis. No hematochezia. GENITOURINARY: No urgency. No frequency. No dysuria. No hematuria. No obstructive symptoms. No discharge. No pain. No significant abnormal bleeding. MUSCULOSKELETAL: No musculoskeletal pain; no joint swelling. NEUROLOGICAL: No headache. No neck pain. No syncope. No seizures. No dizziness. PSYCHIATRIC: Not anxious. No depression. No suicidal thoughts. No homicidal thoughts. SKIN: No rash. No lesions. No wounds. ENDOCRINE: No unexplained weight loss. No weight gain. HEMATOLOGIC/LYMPHATIC: No anemia. No purpura. No petechiae. No prolonged or excessive bleeding. No palpable lymph nodes. PHYSICAL EXAMINATION: GENERAL: The patient is in no distress. HEENT: Head normocephalic, atraumatic. Eyes: Extraocular muscles are intact. Pupils are equal, round and reactive to light and accommodation. Ears: No lesions. Nose appeared normal. Throat: No exudate or erythema. NECK: Supple. No JVD, no carotid bruit. No lymphadenopathy or thyromegaly. LUNGS: Decreased breath sounds, mild expiratory wheeze. Acceptable air entry. Percussion note normal. Chest symmetrical. Patient says she quit smoking a month ago. HEART: S1, S2, no S3. No murmurs. The patient has excavatum wall deformity. No cyanosis or clubbing. No ascites. Pulses: Dorsalis pedis and posterior tibial pulses +1 to +2 bilaterally. ABDOMEN: Soft. Nontender. Bowel sounds active. No CVA tenderness. No mass felt. EXTREMITIES: No edema. Full range of motion of all extremities, equal. NEUROLOGIC: No focal deficit. Cranial nerves II through XII are grossly intact. No headache. No double vision. SKIN: Not dry. Intact. Turgor - normal. LYMPHATIC: No palpable lymph nodes/no lymphedema. MUSCULOSKELETAL: Normal joints with no swelling. Muscle tone is normal. ASSESSMENT: 1. Acute respiratory failure with COPD exacerbation PLAN: 1. Admit the patient with steroids, fluids and oxygen, breathing treatments. 2. present and explained the condition which is critical but stable. TIME SPENT: More than 30 minutes. Plan and coordination of the patient's care discussed in the presence of nurse. MO
[2022-04-21 15:35] LABS: BEecf 8.6 (-2.0-3.0); COHb 93.7 (0.5-1.5); HCO3 33.4 (21-28); MetHb 1.2 (0-1.5); TCO2 35.1 (19-24); tHb 13.8 g/dl (11.7-17.4)
[2022-04-21 15:36] LABS: ABG O2 HGB 93.7 % (95-100)
[2022-04-21] MEDS ORDERED: ULTRAM PO PRN (20:16)
[2022-04-21] MEDS ORDERED: TORADOL IVP ONE (20:16)
[2022-04-21] MEDS: HYDROCHLOROTHIAZIDE PO SCH (20:52)
[2022-04-21] MEDS: COZAAR PO SCH (20:52)
[2022-04-21] MEDS: MIRALAX PO SCH (20:53)
[2022-04-22 05:18] VITALS: BP 140/64; TEMP 98.3
[2022-04-22] MEDS: DUONEB NEB SCH (05:34)
[2022-04-22] MEDS: PULMICORT 1 MG/2 ML NEB SCH (05:34)
[2022-04-22 05:53] LABS: BASOPHILS % (AUTO) 0.1 % (0.0-3.0); HEMATOCRIT 43.5 % (37.0-47.0); HEMOGLOBIN 14.1 g/dl (12.0-16.0); IMMATURE GRANULOCYTE # (AUTO) 0.1 (0.0-1.0); IMMATURE GRANULOCYTE % (AUTO) 0.4 % (0.0-5.0); LYMPHOCYTES # (AUTO) 0.7 K/uL (0.60-3.4); LYMPHOCYTES % (AUTO) 5.1 (10.0-50.0); MEAN CORPUSCULAR HEMOGLOBIN 30.4 pg (27.0-31.0); MEAN CORPUSCULAR HGB CONC 32.4 (31.8-35.4); MEAN CORPUSCULAR VOLUME 93.8 fl (81.0-99.0); MONOCYTES # (AUTO) 0.6 K/uL (0.4-2.0); MONOCYTES % (AUTO) 4.9 (0-10); NEUTROPHILS # (AUTO) 11.6 K/ul (2.0-6.9); NEUTROPHILS % (AUTO) 89.5 % (42.2-75.2); PLATELET COUNT 191 10^3/uL (140-440); RDW COEFFICIENT OF VARIATION 13.1 % (11.6-14.8); RED BLOOD COUNT 4.64 10^6/ul (4.20-5.40); WHITE BLOOD COUNT 12.95 K/ul (4.6-10.2)
[2022-04-22] MEDS: SOLU-MEDROL 125 MG IVP SCH (05:54)
[2022-04-22 06:12] LABS: ALANINE AMINOTRANSFERASE 21.1 U/L (0-35); ALBUMIN 3.7 g/dL (3.5-5.0); ALKALINE PHOSPHATASE 59.6 U/L (53-141); ASPARTATE AMINO TRANSFERASE 37.7 U/L (14-36); BILIRUBIN,TOTAL 0.56 mg/dL (0.2-1.3); BLOOD UREA NITROGEN 22.3 mg/dL (7-17); CALCIUM 9.66 mg/dL (8.4-10.2); CARBON DIOXIDE 33.4 mmol/L (22-30.0); CHLORIDE 95.3 mmol/L (98-107); CREATININE 0.66 mg/dL (0.60-1.30); GLUCOSE 124.8 mg/dL (74-106); POTASSIUM 4.26 mmol/L (3.5-5.1); SODIUM 132.8 mmol/L (134.5-145); TOTAL PROTEIN 6.56 g/dL (6.3-8.2)
[2022-04-22] MEDS: MIRALAX PO SCH (08:57)
[2022-04-22] MEDS: TENORMIN PO SCH (08:57)
[2022-04-23] MEDS ORDERED: LEVAQUIN 750 MG/150 ML D5W 750 MG/150 ML BAG IV SCH (09:00)
--- NOTE | 2022-04-24 07:49 | ECHO2D ---
Date of Exam: 04/22/2022 Ordering Physician: DR. CELI HIDALGO Room #: 103 Reason for Echo: HTN, SOB, SEVERE COPD, AORTIC ANEURYSM M-Mode Normal Adult Results LV Dimensions Normal Adult Results AoV Opening excursions >1.6 >1.6 LVEDD-base- 3.5-5.8 4.2 Ao root dimensions 2.0-3.7 3.2 LVESD-base- 3.1-4.6 L. Atrium dimensions 1.9-3.8 3.8/5.6 Post. Wall thickness 0.8-1.1 0.9 IV septum (thickness) 0.7-1.2 1.0 Post. Wall excursion 0.72-1.3 NORMAL Septal motion 0.8 Systolic motion R. 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 ENLARGED RIGHT VENTRICLE CAVITY 2. 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 AORTIC ROOT NORMAL SIZE/ ASCENDING AORTIC 5.4 CM 4. NORMAL LEFT VENTRICLE CONTRACTILITY AND LEFT VENTRICLE SIZE 5.MODERATE AORTIC REGURGITATION MTDD
[2022-04-28 12:09] LABS: AEROBIC + ANAEROB SUSC Final report (.); BACTERIA IDENTIFICATION Final report (.)
--- NOTE | 2022-04-29 11:40 | PN ---
DATE OF SERVICE: 04/22/22 SUBJECTIVE: 77 year old white female hospitalized with COPD exacerbation. The patient's condition has improved. She is feeling a lot better. Her blood gasses has improved. Yesterday pO2 was 67 with pCO2 of 54 with pH 7.40 with 93% saturation on 4 liters. Saturating around 96% with 3-4 liters. She wants to go home. Appetite has improved. REVIEW OF SYSTEMS: CONSTITUTIONAL: No night sweats. No fatigue, malaise, lethargy. No fever or chills. HEENT: Eyes: No visual changes. No eye pain. No eye discharge. ENT: No runny nose. No epistaxis. No sinus pain. No sore throat. No odynophagia. No congestion. RESPIRATORY: No cough, no congestion. No hemoptysis. No shortness of breath. CARDIOVASCULAR: No angina symptoms. No CHF symptoms. No atypical chest pain for CAD. No palpitations. No PND. No orthopnea. GASTROINTESTINAL: No abdominal pain. No nausea or vomiting. No diarrhea or constipation. No hematemesis. No hematochezia. GENITOURINARY: No urgency. No frequency. No dysuria. No hematuria. No obstructive symptoms. No discharge. No pain. No significant abnormal bleeding. MUSCULOSKELETAL: No musculoskeletal pain; no joint swelling. NEUROLOGICAL: No headache. No neck pain. No syncope. No seizures. No dizziness. PSYCHIATRIC: Not anxious. No depression. No suicidal thoughts. No homicidal thoughts. SKIN: No rash. No lesions. No wounds. ENDOCRINE: No unexplained weight loss. No weight gain. HEMATOLOGIC/LYMPHATIC: No anemia. No purpura. No petechiae. No prolonged or excessive bleeding. No palpable lymph nodes. PHYSICAL EXAMINATION: HEENT: Head normocephalic, atraumatic. Eyes: Extraocular muscles are intact. Pupils are equal, round and reactive to light and accommodation. Ears: No lesions. Nose appeared normal. Throat: No exudate or erythema. NECK: Supple. No JVD, no carotid bruit. No lymphadenopathy or thyromegaly. LUNGS: Decreased breath sounds but clear to auscultation. Percussion note normal. Chest symmetrical. HEART: S1, S2, no S3. No murmurs. No cyanosis or clubbing. No ascites. Pulses: Dorsalis pedis and posterior tibial pulses +1 to +2 bilaterally. ABDOMEN: Soft. Nontender. Bowel sounds active. No CVA tenderness. No mass felt. EXTREMITIES: No edema. Full range of motion of all extremities, equal. NEUROLOGIC: No focal deficit. Cranial nerves II through XII are grossly intact. No headache. No double vision. SKIN: Not dry. Intact. Turgor - normal. LYMPHATIC: No palpable lymph nodes/no lymphedema. MUSCULOSKELETAL: Normal joints with no swelling. Muscle tone is normal. LABS: Hgb 14, hct 43, WBC 12,000 normal differential, creatinine 0.6, BUN 22, potassium 4.2 ASSESSMENT: 1. Acute pneumonitis/bronchitis with severe chronic lung disease with history of heavy smoking 2. Ascending aortic aneurysm 6.1cm. Abnormal CT scan indicating consolidation PLAN: 1. Discharge the patient home on Levaquin 500mg PO daily for 5 days 2. Prednisone 10mg PO twice a day for 5 days and after that one a day for 5 days 3. Instruction to come back in 3-4 days. 4. The patient is already set to see pulmonary physician and Dr. Reinier Alonso 5. The patient says that she has quit smoking a month ago. Counseling for smoking done 6. Echo was done before discharge CONDITION: Stable. PROGNOSIS: Guarded. TIME SPENT: More than 30 minutes. Plan and coordination of the patient's care discussed in the presence of nurse. MO
--- NOTE | 2022-04-29 13:08 | PN ---
ADMISSION DAY: Level 5 REST OF THEM: Intermediate FINAL DAY: D as in discharge. MTDD
--- NOTE | 2022-04-29 13:08 | DS ---
DATE OF SERVICE: 04/22/22 FINAL DIAGNOSIS: 1. Acute pneumonitis with abnormal CT scan with consolidation with exacerbation of COPD 2. Ascending aortic aneurysm 6.1cm size 3 Severe chronic lung disease with history of heavy smoking, quit one month ago 4. Hypertension 5. Chest deformity with pectus excavatum. DISCHARGE INSTRUCTIONS: Discharge home. Instruction to come back in 5-7 days for followup. The patient strongly advised to followup with lung specialist and also cardiothoracic surgeon, [facility]. MEDICATIONS AT DISCHARGE: Albuterol Atenolol Aspirin Losartan NEW PRESCRIPTIONS: Levaquin 500mg PO daily for 5 days Prednisone 10mg twice a day for 5 days and after that 10mg PO daily for 5 days. LABS: Hgb 14.1, cht 43, WBC 12,900 normal differential, creatinine 0.6, BUN 22, potassium 4.2. ABG done yesterday showed pO2 of 57, pCo2 54, pH 7.40 with 93% saturation on 4 liters. Co3 was 33 with CO2 of 35. HOSPITAL COURSE: 77 year old white female was in respiratory distress when she came to the emergency room. The patient was immediately given IV Solu-Cortef and DUO NEBS treatment. Condition settled down within couple of hours and then she was hospitalized. She was continued on IV steroids and later on switched to PO. She was also on IV Levaquin and switched to PO Levaquin. Condition improved. CT scan of the chest revealed consolidation and no obvious evidence of any tumor but the patient would be referred for abnormal CT scan to pulmonary physician also showed ascending aortic aneurysm 6.1cm which has grown in last few years. Echocardiogram showed normal LV contractility, enlarged RV cavity, Systolic fluttering of anterior mitral leaflet from moderate aortic regurgitation noted. The patient had normal aortic root size but immediately ascending aorta had an aneurysm approximately 5.3cm. It was immediately at the aortic root the other part of the ascending aortic couldn't be visualized. CT scan of the chest showed 6.1cm size ascending aortic aneurysm. The patient has already been referred to cardiothoracic surgeon for this. The patient has been thoroughly explained about it. The patient has also been referred to lung specialist for abnormal CT scan. The patient has quit smoking considering the patient's physical status with chest deformity, severe chronic lung disease seem to be a high surgical risk and he was explained about that. CONDITION: Stable. TIME SPENT: More than 60 minutes. MTDD
== END 2022-04-22 12:40 | disposition home or self-care (01) | DRG 190 ==
LOC: ED 10:01 → MEDSURG A 12:38
PROVIDERS: ADMIT Internal Medicine; ATTEND Internal Medicine
DX: Z20.822 Contact with and (suspected) exposure to COVID-19; Z87.891 Personal history of nicotine dependence; I10 Essential (primary) hypertension; Z74.1 Need for assistance with personal care; J44.0 Chronic obstructive pulmonary disease with (acute) lower respiratory infection; J44.9 Chronic obstructive pulmonary disease, unspecified; Z51.81 Encounter for therapeutic drug level monitoring; M62.81 Muscle weakness (generalized); Q67.6 Pectus excavatum; J96.00 Acute respiratory failure, unspecified whether with hypoxia or hypercapnia; Z79.899 Other long term (current) drug therapy; F41.9 Anxiety disorder, unspecified; R26.81 Unsteadiness on feet; Z99.81 Dependence on supplemental oxygen; J44.1 Chronic obstructive pulmonary disease with (acute) exacerbation; R00.0 Tachycardia, unspecified; I71.2 Thoracic aortic aneurysm, without rupture

== ENCOUNTER 2023-10-02 17:59 | Inpatient (IN) ==
[2023-10-02] MEDS ORDERED: DUONEB NEB ONE (18:02)
[2023-10-02] MEDS ORDERED: SODIUM CHLORIDE 1,000 ML IV ONE (18:02)
[2023-10-02] MEDS ORDERED: SOLU-MEDROL 125 MG IVP ONE (18:02)
[2023-10-02] MEDS ORDERED: ZITHROMAX 500 MG in SODIUM CHLORIDE 250 ML IV ONE (18:03)
[2023-10-02 18:20] LABS: ABG PH 7.32 (7.35-7.45); BEecf 6.4 (-2.0-3.0); COHb 3.2 (0.5-1.5); HCO3 32.5 (21-28); MetHb 1.7 (0-1.5); TCO2 34.4 (19-24); sO2 87.3 % (94-98); tHb 15.7 g/dl (11.7-17.4)
[2023-10-02] MEDS ORDERED: ALBUTEROL 0.083% NEB NEB ONE (18:30)
[2023-10-02 18:48] LABS: SARS COV-2 RNA RAPID NAAT NEGATIVE (NEGATIVE)
[2023-10-02 18:54] LABS: MOLECULAR FLU A NEGATIVE BY NAAT (NEGATIVE); MOLECULAR FLU B NEGATIVE BY NAAT (NEGATIVE); RSV MOLECULAR NEGATIVE BY NAAT (NEGATIVE)
[2023-10-02 19:25] LABS: BILIRUBIN,URINE Negative (NEGATIVE); CLARITY,URINE Clear (CLEAR); COLOR,URINE Yellow (YELLOW); GLUCOSE, URINE (UA) Negative (NEGATIVE); KETONES,URINE Negative (NEGATIVE); LEUKOCYTE ESTERASE ,URINE Trace (NEGATIVE); NITRITE,URINE Negative (NEGATIVE); PROTEIN,URINE Trace (NEGATIVE); URINE, BLOOD Negative (NEGATIVE); UROBILINOGEN,URINE 0.2 (0.2)
--- NOTE | 2023-10-02 19:36 | DI ---
EXAM: CHEST RADIOGRAPH TECHNIQUE: Single frontal chest radiograph. HISTORY: Shortness of breath. COMPARISON: 08/31/2022. FINDINGS: There is improvement in the left pleural effusion with small effusion remaining with associated atele ctasis. Resolution of previous right pleural effusion. The lungs are otherwise clear with mild scar ring seen in the right lower lobe. No pneumothorax. Cardiac silhouette remains enlarged unchanged. Mediastinal silhouette and pulmonary vessels within n ormal limits. Atherosclerotic calcific changes seen in the aorta. Upper abdomen is unremarkable. No acute bony abnormality. Degenerative changes of the right shoulder. IMPRESSION: 1. A small residual left pleural effusion with associated atelectasis. No focal infiltrate. 2. Resolution of previous right pleural effusion. 3. Stable enlarged cardiac silhouette without edema.
[2023-10-02 19:47] LABS: URINE WBC, MICROSCOPIC 0-2 (0-2)
[2023-10-02 21:18] LABS: BASOPHILS # (AUTO) 0.1 K/uL (0-0.2); BASOPHILS % (AUTO) 0.8 % (0.0-3.0); EOSINOPHILS # (AUTO) 0.6 K/ul (0.0-0.7); EOSINOPHILS % (AUTO) 6.5 % (0.0-7.0); HEMATOCRIT 48.4 % (37.0-47.0); HEMOGLOBIN 14.9 g/dl (12.0-16.0); IMMATURE GRANULOCYTE % (AUTO) 0.3 % (0.0-5.0); LYMPHOCYTES # (AUTO) 2.3 K/uL (0.60-3.4); LYMPHOCYTES % (AUTO) 26.3 (10.0-50.0); MEAN CORPUSCULAR HEMOGLOBIN 29.3 pg (27.0-31.0); MEAN CORPUSCULAR HGB CONC 30.8 (31.8-35.4); MEAN CORPUSCULAR VOLUME 95.3 fl (81.0-99.0); MONOCYTES # (AUTO) 0.9 K/uL (0.4-2.0); NEUTROPHILS # (AUTO) 4.9 K/ul (2.0-6.9); NEUTROPHILS % (AUTO) 56.1 % (42.2-75.2); PLATELET COUNT 268 10^3/uL (140-440); RDW COEFFICIENT OF VARIATION 13.5 % (11.6-14.8); RED BLOOD COUNT 5.08 10^6/ul (4.20-5.40); WHITE BLOOD COUNT 8.77 K/ul (4.6-10.2)
[2023-10-02 21:24] LABS: ALBUMIN 4.6 g/dL (3.5-5.0); ALKALINE PHOSPHATASE 74.3 U/L (53-141); ASPARTATE AMINO TRANSFERASE 33.6 U/L (14-36); BILIRUBIN,TOTAL 1.16 mg/dL (0.2-1.3); BLOOD UREA NITROGEN 13.1 mg/dL (7-17); CALCIUM 9.76 mg/dL (8.4-10.2); CARBON DIOXIDE 28.6 mmol/L (22-30.0); CHLORIDE 100.6 mmol/L (98-107); CREATININE 0.54 mg/dL (0.60-1.30); GLUCOSE 153.8 mg/dL (74-106); POTASSIUM 4.52 mmol/L (3.5-5.1); TOTAL PROTEIN 7.99 g/dL (6.3-8.2)
--- NOTE | 2023-10-02 21:40 | ED.PDOC ---
General ED Provider: Dr. ARPIT KEY DO Chief Complaint: Shortness of Air Stated Complaint: 78 year old female with PMHx of COPD who presents to the emergency department with chief complaint of worsening SOB and non-productive cough x 1 week. Time Seen by Provider: 10/02/23 18:02 Mode of Arrival: Walk-In Primary Care Provider: CELI HIDALGO MD Nursing and Triage Documentation Reviewed and Agree: Yes What is Opioid Naive?: *Opioid Naive implies the patient is not already taking opioids or not chronically receiving opioids on a daily basis. *PRN dosing is not "usually" associated with tolerance. *Patients are at higher risk of over-sedation and aspiration. What is Opioid Tolerant?: *Opioid Tolerance implies less than the expected response to an opioid. *Acquired tolerance is defined by the patient taking 60mg of oral morphine daily (or equianalgesic dose of another opioid) for 1 week or more. *Often associated with chronic pain. *May take more than usual dose to achieve desired pain control. Review of Systems Review Of Systems Constitutional: Reports No symptoms PFSH Medical History Osteoarthritis M19.90 - Unspecified osteoarthritis, unspecified site (ICD-10) Emphysema lung J43.9 - Emphysema, unspecified (ICD-10) Family History FATHER Myocardial infarction Mother Dementia Social History Smoking and tobacco status: Former smoker Tobacco: How many years used: 50 How long ago did patient quit smokin month aog Quit status: quit date established Second hand smoke exposure: Yes Substance use type: does not use Special erick needs: No Agree to transfusion: Yes Adopted: No Caregiver/support person: No Foster care: No Household members: spouse Housing: house Marital status: M Lives independently: Yes Number of children: 3 service: No FPC: No Current occupational status: retired History of recent travel: No Current gender identity: female Seatbelt use: always Helmet use: No Drives intoxicated or rides with intoxicated intermodal truck driver: No Water heater temperature set < 120 degrees: Yes Working smoke detector in home: Yes Fire extinguisher in home: Yes Carbon monoxide detector in home: Yes Surgical History Status post hysterectomy partial Z90.710 - Acquired absence of both cervix and uterus (ICD-10) Status post cholecystectomy Z90.49 - Acquired absence of other specified parts of digestive tract (ICD- 10) Female Reproductive History Menstrual Hx Hysterectomy: Yes Hx Tubal Ligation: No Physical Exam Physical Exam Appearance: Reports Well-appearing, No pain distress and Well-nourished Ill-appearing: None Pain Distress: None Eyes: Reports GIL, EOMI and Conjunctiva clear ENT: Reports Ears normal, Nose normal and Oropharynx normal Neck: Supple Respiratory: Reports Airway patent, Breath sounds equal, Breath sounds diminished and Wheezes Cardiovascular: Reports Pulses normal, No rub, No murmur and Tachycardia GI/: Reports Soft, Nontender, No masses, Bowel sounds normal and No Organomegaly Musculoskeletal: Reports Normal strength, ROM intact, No edema and No calf tenderness Skin: Reports Warm, Dry and Normal color Neurological: Reports Sensation intact, Motor intact, Reflexes intact, Cranial nerves intact, Alert and Oriented Psychiatric: Reports Affect appropriate and Mood appropriate Course Course 10/08/23 04:56 10/08/23 04:56 Orders, Labs, Meds: Lab Review 10/02/23 10/02/23 10/02/23 18:05 18:10 18:12 WBC 8.77 RBC 5.08 Hgb 14.9 Hct 48.4 H MCV 95.3 MCH 29.3 MCHC 30.8 L RDW Coeff of Serenity 13.5 Plt Count 268 Immature Gran % (Auto) 0.3 Neut % (Auto) 56.1 Lymph % (Auto) 26.3 [place] % (Auto) 10.0 Eos % (Auto) 6.5 Baso % (Auto) 0.8 Neut # (Auto) 4.9 Lymph # (Auto) 2.3 [place] # (Auto) 0.9 Eos # (Auto) 0.6 Baso # (Auto) 0.1 Immature Gran # (Auto) 0.0 Puncture Site Base Excess O2 Saturation ABG pH ABG pCO2 ABG pO2 ABG HCO3 ABG Total CO2 Mark Test Hemoglobin Oxyhemoglobin Carboxyhemoglobin Total Hemoglobin O2 Delivery Device Oxygen Liter Flow FiO2 % Sodium 137.0 Potassium 4.52 Chloride 100.6 Carbon Dioxide 28.6 Anion Gap 12.32 BUN 13.1 Creatinine 0.54 L Estimated GFR (MDRD) 109.00 BUN/Creatinine Ratio 24.25 Glucose 153.8 H Calcium 9.76 Total Bilirubin 1.16 AST 33.6 ALT 19.0 Alkaline Phosphatase 74.3 Troponin I < 0.012 NT-Pro-B Natriuret Pep 376 H Total Protein 7.99 Albumin 4.60 Globulin 3.39 Albumin/Globulin Ratio 1.35 Procalcitonin < 0.05 Urine Color Urine Clarity Urine pH Ur Specific [place] Urine Protein Urine Glucose (UA) Urine Ketones Urine Blood Urine Nitrite Urine Bilirubin Urine Urobilinogen Ur Leukocyte Esterase Urine Microscopic WBC Ur Squamous Epith Cells Influ A Molecular Assay Influ B Molecular Assay RSV Antigen SARS CoV-2 RNA Rapid MEJIA Negative 10/02/23 10/02/23 10/02/23 18:14 18:35 19:18 WBC RBC Hgb Hct MCV MCH MCHC RDW Coeff of Serenity Plt Count Immature Gran % (Auto) Neut % (Auto) Lymph % (Auto) [place] % (Auto) Eos % (Auto) Baso % (Auto) Neut # (Auto) Lymph # (Auto) [place] # (Auto) Eos # (Auto) Baso # (Auto) Immature Gran # (Auto) Puncture Site Rbrach Base Excess 6.4 H O2 Saturation 87.3 L ABG pH 7.32 L ABG pCO2 63.0 H ABG pO2 58.0 L* ABG HCO3 32.5 H ABG Total CO2 34.4 H Mark Test + Hemoglobin 1.7 H Oxyhemoglobin 85.0 L Carboxyhemoglobin 3.2 H Total Hemoglobin 15.7 O2 Delivery Device Cannula Oxygen Liter Flow 3.00 FiO2 % Sodium Potassium Chloride Carbon Dioxide Anion Gap BUN Creatinine Estimated GFR (MDRD) BUN/Creatinine Ratio Glucose Calcium Total Bilirubin AST ALT Alkaline Phosphatase Troponin I NT-Pro-B Natriuret Pep Total Protein Albumin Globulin Albumin/Globulin Ratio Procalcitonin Urine Color Yellow Urine Clarity Clear Urine pH 7.0 Ur Specific [place] 1.020 Urine Protein Trace H Urine Glucose (UA) Negative Urine Ketones Negative Urine Blood Negative Urine Nitrite Negative Urine Bilirubin Negative Urine Urobilinogen 0.2 Ur Leukocyte Esterase Trace H Urine Microscopic WBC 0-2 Ur Squamous Epith Cells 2-5 Influ A Molecular Assay Negative by naat Influ B Molecular Assay Negative by naat RSV Antigen Negative by naat SARS CoV-2 RNA Rapid MEJIA 10/03/23 10/03/23 10/03/23 05:13 13:55 17:56 WBC 3.35 L D RBC 4.85 Hgb 14.2 Hct 45.9 MCV 94.6 MCH 29.3 MCHC 30.9 L RDW Coeff of Serenity 13.2 Plt Count 201 Immature Gran % (Auto) 0.6 Neut % (Auto) 80.6 H Lymph % (Auto) 16.7 [place] % (Auto) 1.8 Eos % (Auto) 0.0 Baso % (Auto) 0.3 Neut # (Auto) 2.7 Lymph # (Auto) 0.6 [place] # (Auto) 0.1 L Eos # (Auto) 0.0 Baso # (Auto) 0.0 Immature Gran # (Auto) 0.0 Puncture Site Rbrach Rbr Base Excess 6.2 H 4.2 H O2 Saturation 84.2 L 90.1 L ABG pH 7.40 7.43 ABG pCO2 50.0 H 43.0 ABG pO2 49.0 L* 57.0 L* ABG HCO3 31.0 H 28.5 H ABG Total CO2 32.5 H 29.8 H Mark Test + + Hemoglobin 1.4 1.1 Oxyhemoglobin 84.5 L 89.5 L Carboxyhemoglobin 2.7 H 2.4 H Total Hemoglobin 14.4 14.3 O2 Delivery Device Cannula Vapotherm Oxygen Liter Flow 3.50 FiO2 % Sodium 139.7 Potassium 4.62 Chloride 101.4 Carbon Dioxide 30.6 H Anion Gap 12.32 BUN 16.9 Creatinine 0.64 Estimated GFR (MDRD) 89.00 BUN/Creatinine Ratio 26.40 Glucose 120.6 H Calcium 9.31 Total Bilirubin 0.76 AST 28.9 ALT 17.0 Alkaline Phosphatase 64.0 Troponin I NT-Pro-B Natriuret Pep Total Protein 6.85 Albumin 4.05 Globulin 2.80 Albumin/Globulin Ratio 1.44 Procalcitonin Urine Color Urine Clarity Urine pH Ur Specific [place] Urine Protein Urine Glucose (UA) Urine Ketones Urine Blood Urine Nitrite Urine Bilirubin Urine Urobilinogen Ur Leukocyte Esterase Urine Microscopic WBC Ur Squamous Epith Cells Influ A Molecular Assay Influ B Molecular Assay RSV Antigen SARS CoV-2 RNA Rapid MEJIA 10/04/23 10/04/23 04:55 08:20 WBC 12.78 H D RBC 4.52 Hgb 13.3 Hct 41.7 MCV 92.3 MCH 29.4 MCHC 31.9 RDW Coeff of Serenity 13.4 Plt Count 207 Immature Gran % (Auto) 0.5 Neut % (Auto) 90.5 H Lymph % (Auto) 3.4 L [place] % (Auto) 5.5 Eos % (Auto) 0.0 Baso % (Auto) 0.1 Neut # (Auto) 11.6 H Lymph # (Auto) 0.4 L [place] # (Auto) 0.7 Eos # (Auto) 0.0 Baso # (Auto) 0.0 Immature Gran # (Auto) 0.1 Puncture Site Rb Base Excess 8.2 H O2 Saturation 93.5 L ABG pH 7.43 ABG pCO2 49.0 H ABG pO2 67.0 L ABG HCO3 32.5 H ABG Total CO2 34.0 H Mark Test + Hemoglobin 1.1 Oxyhemoglobin 92.4 L Carboxyhemoglobin 2.8 H Total Hemoglobin 14.2 O2 Delivery Device Vapotherm Oxygen Liter Flow FiO2 % 50.0 Sodium 137.7 Potassium 3.97 Chloride 102.1 Carbon Dioxide 31.4 H Anion Gap 8.17 BUN 25.0 H Creatinine 0.60 Estimated GFR (MDRD) 96.00 BUN/Creatinine Ratio 41.66 Glucose 132.0 H Calcium 9.64 Total Bilirubin 0.58 AST 38.4 H ALT 19.8 Alkaline Phosphatase 59.1 Troponin I NT-Pro-B Natriuret Pep Total Protein 6.83 Albumin 3.96 Globulin 2.87 Albumin/Globulin Ratio 1.37 Procalcitonin Urine Color Urine Clarity Urine pH Ur Specific [place] Urine Protein Urine Glucose (UA) Urine Ketones Urine Blood Urine Nitrite Urine Bilirubin Urine Urobilinogen Ur Leukocyte Esterase Urine Microscopic WBC Ur Squamous Epith Cells Influ A Molecular Assay Influ B Molecular Assay RSV Antigen SARS CoV-2 RNA Rapid MEJIA Orders Category Date Time Status ADMIT OBSERVATION [PLACE PATIENT OBSERVATION] .TO ADMISSION 10/02/23 21:40 Completed MEDSURG (MONITORED BED) ABG DRAW REQUEST Stat CARDIO 10/02/23 18:05 Completed ABG DRAW REQUEST Stat CARDIO 10/03/23 13:48 Completed ABG DRAW REQUEST Timed CARDIO 10/03/23 17:23 Completed NEBULIZER TREATMENT Routine CARDIO 10/02/23 18:30 Completed NEBULIZER TREATMENT Routine CARDIO 10/02/23 21:48 Completed NEBULIZER TREATMENT Routine CARDIO 10/03/23 14:46 Completed NEBULIZER TREATMENT Stat CARDIO 10/02/23 18:30 Completed OXYGEN Routine CARDIO 10/02/23 21:50 Completed ACTIVITY .Early Mobilization for VTE Prevention CARE 10/02/23 21:47 Completed Discharge Assessment ONCE CARE 10/03/23 09:22 Completed INTAKE & OUTPUT Q8HR CARE 10/02/23 21:50 Completed NPO REMINDER: IMAGING ONCE CARE 10/04/23 08:35 Completed Notify RT of Treatment ONCE CARE 10/03/23 13:48 Completed Notify RT of Treatment ONCE CARE 10/03/23 14:46 Completed Notify RT of Treatment ONCE CARE 10/04/23 05:00 Completed REMINDER: Document IV Stop Time on MAR ONCE CARE 10/03/23 09:22 Completed REMINDER: IV Discontinued on Spreadsheet ONCE CARE 10/03/23 09:22 Completed TELEMETRY MONITORING TELE CARE 10/02/23 21:41 Completed VITAL SIGNS Q8HR CARE 10/02/23 21:50 Completed WRITE DISCHARGE NOTE ONCE CARE 10/03/23 09:22 Completed CARDIAC DIET DIETARY 10/03/23 Breakfast Completed ABG COOX Routine LAB 10/04/23 08:20 Completed ABG COOX Stat LAB 10/02/23 18:14 Completed ABG COOX Stat LAB 10/03/23 13:55 Completed ABG COOX Timed LAB 10/03/23 17:56 Completed CBC W/ AUTO DIFF DAILY@0600 LAB 10/03/23 05:13 Completed CBC W/ AUTO DIFF DAILY@0600 LAB 10/04/23 04:55 Completed CBC W/ AUTO DIFF Stat LAB 10/02/23 18:05 Completed CMP [COMPREHENSIVE METABOLIC PANEL] DAILY@0600 LAB 10/03/23 05:13 Completed CMP [COMPREHENSIVE METABOLIC PANEL] DAILY@0600 LAB 10/04/23 04:55 Completed CMP [COMPREHENSIVE METABOLIC PANEL] Stat LAB 10/02/23 18:05 Completed FLU A/B MOLECULAR Stat LAB 10/02/23 18:35 Completed NT-PROBNP(ED) Stat LAB 10/02/23 18:12 Completed PROCALCITONIN Stat LAB 10/02/23 18:12 Completed RSV Stat LAB 10/02/23 18:35 Completed SARS COV-2 RNA RAPID MEJIA Stat LAB 10/02/23 18:10 Completed SPUTUM CULTURE Routine LAB 10/04/23 20:00 Completed TROPONIN I Stat LAB 10/02/23 18:12 Completed URINALYSIS C & S IF INDICATED Stat LAB 10/02/23 19:18 Completed Acetaminophen [Tylenol] Meds 10/02/23 21:47 Discontinued 650 mg PO Q4H PRN Albuterol Sulfate 0.083% Neb [Albuterol 0.083% Neb] Meds 10/02/23 18:30 Discontinued 2.5 mg NEB ONCE ONE Albuterol Sulfate 0.083% Neb [Albuterol 0.083% Neb] Meds 10/02/23 21:47 Discontinued 2.5 mg NEB RTQ4H PRN Azithromycin Inj [Zithromax] 500 mg Meds 10/03/23 09:00 Discontinued 0.9 % Sodium Chloride [Sodium Chloride] 250 ml IV DAILY Azithromycin Inj [Zithromax] 500 mg Meds 10/02/23 18:03 Discontinued 0.9 % Sodium Chloride [Sodium Chloride] 250 ml IV ONCE Budesonide [Pulmicort 1 mg/2 ml] Meds 10/03/23 18:00 Discontinued 2 mg NEB RTQ6H Ceftriaxone/D5w 1 gm Premix [Rocephin 1 gm/50 ml D5w] Meds 10/02/23 22:00 Discontinued 1 gm in 50 ml IV DAILY Ipratropium/Albuterol Neb [Duoneb] Meds 10/02/23 18:02 Discontinued 3 ml NEB ONCE ONE Ipratropium/Albuterol Neb [Duoneb] Meds 10/02/23 22:00 Discontinued 3 ml NEB RTQ4H Methylprednisolone Sod Succ/Pf [Solu-Medrol 125 mg] Meds 10/02/23 18:02 Discontinued 125 mg IVP ONCE ONE Methylprednisolone Sod Succ/Pf [Solu-Medrol 40 mg] Meds 10/03/23 05:00 Discontinued 40 mg IVP Q8HR Ondansetron HCl/Pf [Zofran 4 mg/2 ml] Meds 10/02/23 21:47 Discontinued 4 mg IVP Q6H PRN Sodium Chloride 0.9% [Sodium Chloride] 1,000 ml Meds 10/02/23 18:02 Discontinued IV BOLUS CHEST, 1V AP ONLY Stat RADS 10/02/23 18:04 Completed CTA CHEST PE PROTOCOL Stat RADS 10/04/23 08:35 Completed Medications Discontinued Medications Generic Name Dose Route Start Last Admin Trade Name Ronyq PRN Reason Stop Dose Admin Acetaminophen 650 mg 10/02/23 21:47 Acetaminophen 325 Mg Tablet PO Q4H PRN Mild Pain Albuterol Sulfate 2.5 mg 10/02/23 18:30 10/02/23 18:42 Albuterol Sulfate 0.083% Vial.Rosy NEB 10/02/23 18:31 2.5 mg ONCE ONE Administration Albuterol Sulfate 2.5 mg 10/02/23 21:47 10/09/23 00:01 Albuterol Sulfate 0.083% Vial.Rosy KELLOGG 2.5 mg RTQ4H PRN Administration Wheezing Albuterol/Ipratropium 3 ml 10/02/23 18:02 10/02/23 18:23 Ipratropium/Albuterol Vial.Rosy NEB 10/02/23 18:03 3 ml ONCE ONE Administration Albuterol/Ipratropium 3 ml 10/02/23 22:00 10/09/23 10:26 Ipratropium/Albuterol Vial.Rosy NEB 3 ml RTQ4H SWATI Administration Azithromycin 500 mg 10/06/23 10:21 10/06/23 11:42 Azithromycin 250 Mg Tablet PO 10/06/23 10:22 500 mg ONCE ONE Administration Bisacodyl 5 mg 10/08/23 08:47 10/08/23 09:24 Bisacodyl 5 Mg Tablet.Dr JAVED 10/08/23 08:48 5 mg ONCE ONE Administration Budesonide 2 mg 10/03/23 18:00 10/05/23 05:28 Budesonide 1 Mg/2 Ml Vial.Rosy NEB 2 mg RTQ6H SWATI Administration Cefdinir 300 mg 10/08/23 09:00 10/08/23 20:32 Cefdinir 300 Mg Capsule PO 10/08/23 23:59 300 mg Q12HR SWATI Administration Enoxaparin Sodium 40 mg 10/04/23 10:40 10/09/23 08:38 Enoxaparin Sodium 40 Mg/0.4 Ml Syr SUBCUT 40 mg DAILY SWATI Administration Sodium Chloride 1,000 mls @ 1,000 mls/hr 10/02/23 18:02 10/02/23 19:44 Sodium Chloride IV 10/02/23 19:01 Infused BOLUS ONE Infusion Azithromycin 500 mg/ Sodium 250 mls @ 250 mls/hr 10/02/23 18:03 10/02/23 18:16 Chloride IV 10/02/23 19:02 250 mls/hr ONCE ONE Administration CEFTRIAXONE/D5W 1 GM PREMIX 1 gm in 50 mls @ 100 mls/hr 10/02/23 22:00 10/07/23 08:24 Rocephin 1 Gm/50 Ml D5w IV 10/07/23 21:59 100 mls/hr DAILY SWATI Administration Azithromycin 500 mg/ Sodium 250 mls @ 250 mls/hr 10/03/23 09:00 10/04/23 09:14 Chloride IV 10/05/23 08:59 250 mls/hr DAILY SWATI Administration Lorazepam 0.5 mg 10/05/23 21:47 10/05/23 21:53 Lorazepam 0.5 Mg Tablet PO 10/05/23 21:48 0.5 mg ONCE ONE Administration Lorazepam 0.5 mg 10/06/23 15:28 10/07/23 17:16 Lorazepam 0.5 Mg Tablet PO 0.5 mg DAILY PRN Administration Anxiety Lorazepam 0.25 mg 10/08/23 10:47 10/09/23 00:14 Lorazepam 0.5 Mg Tablet PO 0.25 mg BID PRN Administration Anxiety Methylprednisolone Sodium Succinate 125 mg 10/02/23 18:02 10/02/23 18:16 Methylprednisolone Sod Succ/Pf 125 Mg/2 Ml Vial IVP 10/02/23 18:03 125 mg ONCE ONE Administration Methylprednisolone Sodium Succinate 40 mg 10/03/23 05:00 10/09/23 05:29 Methylprednisolone Sod Succ/Pf 40 Mg/Ml Vial IVP 40 mg Q8HR SWATI Administration Ondansetron HCl 4 mg 10/02/23 21:47 Ondansetron Hcl/Pf 4 Mg/2 Ml Sdv IVP Q6H PRN Nausea / Vomiting Polyethylene Glycol 17 gm 10/08/23 16:40 10/08/23 16:51 Polyethylene Glycol 17 Gm Powd.Pack PO 17 gm DAILY PRN Administration Constipation Sodium Chloride 1 syr 10/04/23 21:00 10/09/23 05:29 0.9% Sodium Chloride 10 Ml Disp.Syrin IVF 1 syr Q8HR SWATI Administration Vital Signs: Temp Pulse Pulse Resp BP Pulse Ox O2 Del Method 10/04/23 09:11 92 L 10/04/23 09:11 92 L Vapo Therm 10/04/23 09:09 92 L 10/04/23 08:00 Vapo Therm 10/04/23 08:00 Vapo Therm 10/04/23 07:48 92 L Vapo Therm 10/04/23 07:00 Vapo Therm 10/04/23 06:00 Vapo Therm 10/04/23 05:48 97.6 F 70 17 118/59 L 94 L Vapo Therm 10/04/23 05:08 94 L 10/04/23 05:00 Vapo Therm 10/04/23 04:00 Vapo Therm 10/04/23 02:50 Vapo Therm 10/04/23 02:00 Vapo Therm 10/04/23 02:00 93 L 10/04/23 01:00 Vapo Therm 10/04/23 00:00 Vapo Therm 10/03/23 23:00 Vapo Therm 10/03/23 22:00 Vapo Therm 10/03/23 21:13 98.3 F 62 18 133/76 96 Vapo Therm 10/03/23 21:00 Vapo Therm 10/03/23 20:13 95 Vapo Therm 10/03/23 20:12 95 10/03/23 20:00 22 H Vapo Therm 10/03/23 20:00 Vapo Therm 10/03/23 19:00 Vapo Therm 10/03/23 18:00 91 L Vapo Therm 10/03/23 18:00 90 L 10/03/23 18:00 98.2 F 104 H 20 137/66 82 L Vapo Therm 10/03/23 17:50 Vapo Therm 10/03/23 17:00 Vapo Therm 10/03/23 16:00 Vapo Therm 10/03/23 15:00 Vapo Therm 10/03/23 14:00 94 L 10/03/23 14:00 93 L Vapo Therm 10/03/23 14:00 98.4 F 91 24 H 117/61 92 L Vapo Therm 10/03/23 14:00 Nasal Cannula 10/03/23 13:00 Nasal Cannula 10/03/23 11:48 Nasal Cannula 10/03/23 11:00 Nasal Cannula 10/03/23 10:00 94 L Nasal Cannula 10/03/23 10:00 98.0 F 89 24 H 118/62 95 Nasal Cannula 10/03/23 10:00 Nasal Cannula 10/03/23 09:00 Nasal Cannula 10/03/23 08:00 Nasal Cannula 10/03/23 08:00 72 24 H Nasal Cannula 10/03/23 07:00 Nasal Cannula 10/03/23 06:33 96 Nasal Cannula 10/03/23 05:49 Room Air 10/03/23 05:46 97.6 F 86 16 111/66 98 Room Air 10/03/23 05:08 96 Nasal Cannula 10/03/23 05:00 Nasal Cannula 10/03/23 04:00 Nasal Cannula 10/03/23 03:00 Nasal Cannula 10/03/23 02:00 Nasal Cannula 10/03/23 01:00 Nasal Cannula 10/03/23 00:00 Nasal Cannula 10/02/23 23:00 Nasal Cannula 10/02/23 22:33 96 Nasal Cannula 10/02/23 22:31 97.9 F 100 22 H 167/70 H 87 L Nasal Cannula 10/02/23 22:30 22 H Nasal Cannula 10/02/23 22:30 97.9 F 84 22 H 97 Nasal Cannula 10/02/23 17:59 98.6 F 89 30 H 189/96 H 88 L O2 Flow Rate 10/04/23 09:11 10/04/23 09:11 10/04/23 09:09 10/04/23 08:00 10/04/23 08:00 10/04/23 07:48 10/04/23 07:00 10/04/23 06:00 10/04/23 05:48 50 10/04/23 05:08 10/04/23 05:00 10/04/23 04:00 10/04/23 02:50 10/04/23 02:00 10/04/23 02:00 10/04/23 01:00 10/04/23 00:00 10/03/23 23:00 10/03/23 22:00 10/03/23 21:13 30 10/03/23 21:00 10/03/23 20:13 50 10/03/23 20:12 10/03/23 20:00 30 10/03/23 20:00 10/03/23 19:00 10/03/23 18:00 10/03/23 18:00 10/03/23 18:00 30 10/03/23 17:50 10/03/23 17:00 10/03/23 16:00 10/03/23 15:00 10/03/23 14:00 10/03/23 14:00 10/03/23 14:00 30 10/03/23 14:00 10/03/23 13:00 10/03/23 11:48 10/03/23 11:00 10/03/23 10:00 4 10/03/23 10:00 3 10/03/23 10:00 10/03/23 09:00 10/03/23 08:00 10/03/23 08:00 3 10/03/23 07:00 10/03/23 06:33 4 10/03/23 05:49 10/03/23 05:46 4 10/03/23 05:08 4 10/03/23 05:00 10/03/23 04:00 10/03/23 03:00 10/03/23 02:00 10/03/23 01:00 10/03/23 00:00 10/02/23 23:00 10/02/23 22:33 4 10/02/23 22:31 3 10/02/23 22:30 3 10/02/23 22:30 3 10/02/23 17:59 Discharge Plan Discharge Patient Disposition: PLACED OBSERVATION Discharge Problem: COPD exacerbation, Acute respiratory failure with hypoxia and hypercapnia Did you review [place] for [place] controlled substances?: Not Applicable ED Provider: ARPIT KEY Condition: Stable Physician Progress Note: []
[2023-10-02] MEDS ORDERED: ZOFRAN 4 MG/2 ML IVP PRN (21:47)
[2023-10-02] MEDS ORDERED: TYLENOL PO PRN (21:47)
[2023-10-02] MEDS: DUONEB NEB SCH (22:24)
[2023-10-02 22:40] VITALS: BMI 19.8
[2023-10-02] MEDS: ROCEPHIN 1 GM/50 ML D5W 1 GM/50 ML BAG IV SCH (22:45)
[2023-10-03] MEDS: DUONEB NEB SCH ×6 (01:14→22:04)
[2023-10-03] MEDS: SOLU-MEDROL 40 MG IVP SCH ×3 (05:30→21:37)
[2023-10-03 06:02] LABS: BASOPHILS % (AUTO) 0.3 % (0.0-3.0); HEMATOCRIT 45.9 % (37.0-47.0); HEMOGLOBIN 14.2 g/dl (12.0-16.0); IMMATURE GRANULOCYTE % (AUTO) 0.6 % (0.0-5.0); LYMPHOCYTES # (AUTO) 0.6 K/uL (0.60-3.4); LYMPHOCYTES % (AUTO) 16.7 (10.0-50.0); MEAN CORPUSCULAR HEMOGLOBIN 29.3 pg (27.0-31.0); MEAN CORPUSCULAR HGB CONC 30.9 (31.8-35.4); MEAN CORPUSCULAR VOLUME 94.6 fl (81.0-99.0); MONOCYTES # (AUTO) 0.1 K/uL (0.4-2.0); MONOCYTES % (AUTO) 1.8 (0-10); NEUTROPHILS # (AUTO) 2.7 K/ul (2.0-6.9); NEUTROPHILS % (AUTO) 80.6 % (42.2-75.2); PLATELET COUNT 201 10^3/uL (140-440); RDW COEFFICIENT OF VARIATION 13.2 % (11.6-14.8); RED BLOOD COUNT 4.85 10^6/ul (4.20-5.40); WHITE BLOOD COUNT 3.35 K/ul (4.6-10.2)
[2023-10-03 06:21] LABS: ALBUMIN 4.05 g/dL (3.5-5.0); ASPARTATE AMINO TRANSFERASE 28.9 U/L (14-36); BILIRUBIN,TOTAL 0.76 mg/dL (0.2-1.3); BLOOD UREA NITROGEN 16.9 mg/dL (7-17); CALCIUM 9.31 mg/dL (8.4-10.2); CARBON DIOXIDE 30.6 mmol/L (22-30.0); CHLORIDE 101.4 mmol/L (98-107); CREATININE 0.64 mg/dL (0.60-1.30); GLUCOSE 120.6 mg/dL (74-106); POTASSIUM 4.62 mmol/L (3.5-5.1); SODIUM 139.7 mmol/L (134.5-145); TOTAL PROTEIN 6.85 g/dL (6.3-8.2)
[2023-10-03] MEDS: ROCEPHIN 1 GM/50 ML D5W 1 GM/50 ML BAG IV SCH (08:26)
--- NOTE | 2023-10-03 09:12 | PCM.SS ---
Provider Provider[facility] Date Admission Date: 10/02/23 Discharge Date Discharge Date: 10/03/23 Primary Care Physician Primary Care Physician: CELI HIDALGO MD Chief Complaint Reason For Visit: COPD WITH EXACERBATION History of Present Illness History of Present Illness: Admitted 10/02/23 21:46, this 78 year old /WHITE/F presented to the ER with shortness of breath. Has pmh of COPD and CHF. States she has had worsening shortness of breath and a dry cough over the last couple days that hasn't gotten better. Wears 3L of oxygen continuously. In ER, O2 sat was in upper 80s. Improved after 2 breathing treatments to 93-94%. Denies any fever, chills, chest pain, N/V/D. PO2 significantly low on abg. [facility] Medical History Osteoarthritis M19.90 - Unspecified osteoarthritis, unspecified site (ICD-10) Emphysema lung J43.9 - Emphysema, unspecified (ICD-10) Surgical History Status post hysterectomy partial Z90.710 - Acquired absence of both cervix and uterus (ICD-10) Status post cholecystectomy Z90.49 - Acquired absence of other specified parts of digestive tract (ICD- 10) Family History FATHER Myocardial infarction Mother Dementia Social History Smoking and tobacco status: Former smoker Tobacco: How many years used: 50 How long ago did patient quit smokin month aog Quit status: quit date established Second hand smoke exposure: Yes Substance use type: does not use Special erick needs: No Agree to transfusion: Yes Adopted: No Caregiver/support person: No Foster care: No Household members: spouse Housing: house Marital status: M Lives independently: Yes Number of children: 3 service: No [employer]: No Current occupational status: retired History of recent travel: No Current gender identity: female Seatbelt use: always Helmet use: No Drives intoxicated or rides with intoxicated 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 Water heater temperature set < 120 degrees: Yes Working smoke detector in home: Yes Fire extinguisher in home: Yes Carbon monoxide detector in home: Yes Medications Mecications: Medications at Discharge (Home Meds & RX) aspirin 81 mg chewable tablet 81 mg PO PRN PRN pain 05/10/15 atenolol 50 mg tablet See Rx Instructions .Route .COMPLEX #90 tabs 09/09/23 losartan 100 mg tablet See Rx Instructions .Route .COMPLEX #90 tabs 09/09/23 albuterol sulfate 90 mcg/actuation aerosol inhaler See Rx Instructions .Route .COMPLEX #18 grams 09/13/23 Allergies Allergies Allergy/AdvReac Type Severity Reaction Status Date / Time codeine Allergy Severe Anaphylaxis Verified 10/02/23 18:03 Penicillins Allergy Severe Anaphylaxis Verified 10/02/23 18:03 Review of Systems Constitutional: Reports No symptoms Head: Reports Normocephalic Eyes: Reports No symptoms Ears: Reports No symptoms Nose: Reports No symptoms Mouth: Reports No symptoms Throat: Reports No symptoms Cardiovascular: Reports No symptoms Respiratory: Reports Cough and Shortness of air Gastrointestinal: Reports No symptoms Genitourinary: Reports No Symptoms Musculoskeletal: Reports No symptoms Endocrine: Reports No symptoms Hematology: Reports No symptoms Immunology: Reports No symptoms Neurological: Reports No symptoms Psychiatric: Reports No symptoms Physical Examination Appearance: Positive No Apparent Distress and Alert and Oriented x3 Head: Positive Normocephalic Eyes: Positive GIL Neck: Positive Supple, Non-Tender and Trachea Midline Heart: Positive RRR and No Murmurs Respiratory: Positive Airway patent, Breath Sounds Clear, Bilaterally and Respirations Nonlabored GI/: Positive Soft, Nontender, Bowel sounds normal and No Distention Extremities: Positive Pedal Pulses Palpable Bilaterally Neurological: Positive Alert and Oriented Psychiatric: Positive Normal Judgement and Normal Insight Vital Signs (Last 4 Hours) Vital Signs Last 4 Hours: Vital Signs: Last 4 Hours 10/03/23 05:46 10/03/23 05:49 10/03/23 06:33 Temperature 97.6 F Temperature Source Temporal Artery Scan Pulse Rate 86 Respiratory Rate 16 Blood Pressure 111/66 Blood Pressure Mean 81 Blood Pressure Location Left Arm Blood Pressure Position Supine O2 Sat by Pulse Oximetry 98 96 Oxygen Delivery Method Room Air Room Air Nasal Cannula Oxygen Flow Rate 4 4 Telemetry Type Telemetry Monitoring Telemetry Heart Rate Telemetry SPO2 EKG IL Interval EKG QRS Interval Telemetry Strip Reading 10/03/23 07:00 10/03/23 07:00 10/03/23 08:00 Temperature Temperature Source Pulse Rate Respiratory Rate Blood Pressure Blood Pressure Mean Blood Pressure Location Blood Pressure Position O2 Sat by Pulse Oximetry Oxygen Delivery Method Nasal Cannula Nasal Cannula Oxygen Flow Rate Telemetry Type Remote Telemetry Telemetry Monitoring Continues Telemetry Heart Rate 88 Telemetry SPO2 98 EKG IL Interval 0.06 L EKG QRS Interval 0.05 L Telemetry Strip Reading SR Labs This Visit Labs This Visit: Labs This Visit 10/02/23 10/02/23 10/02/23 18:05 18:10 18:12 WBC 8.77 RBC 5.08 Hgb 14.9 Hct 48.4 H MCV 95.3 MCH 29.3 MCHC 30.8 L RDW Coeff of Serenity 13.5 Plt Count 268 Immature Gran % (Auto) 0.3 Neut % (Auto) 56.1 Lymph % (Auto) 26.3 [place] % (Auto) 10.0 Eos % (Auto) 6.5 Baso % (Auto) 0.8 Neut # (Auto) 4.9 Lymph # (Auto) 2.3 [place] # (Auto) 0.9 Eos # (Auto) 0.6 Baso # (Auto) 0.1 Immature Gran # (Auto) 0.0 Puncture Site Base Excess O2 Saturation ABG pH ABG pCO2 ABG pO2 ABG HCO3 ABG Total CO2 Mark Test Hemoglobin Oxyhemoglobin Carboxyhemoglobin Total Hemoglobin O2 Delivery Device Oxygen Liter Flow Sodium 137.0 Potassium 4.52 Chloride 100.6 Carbon Dioxide 28.6 Anion Gap 12.32 BUN 13.1 Creatinine 0.54 L Estimated GFR (MDRD) 109.00 BUN/Creatinine Ratio 24.25 Glucose 153.8 H Calcium 9.76 Total Bilirubin 1.16 AST 33.6 ALT 19.0 Alkaline Phosphatase 74.3 Troponin I < 0.012 NT-Pro-B Natriuret Pep 376 H Total Protein 7.99 Albumin 4.60 Globulin 3.39 Albumin/Globulin Ratio 1.35 Procalcitonin < 0.05 Urine Color Urine Clarity Urine pH Ur Specific [place] Urine Protein Urine Glucose (UA) Urine Ketones Urine Blood Urine Nitrite Urine Bilirubin Urine Urobilinogen Ur Leukocyte Esterase Urine Microscopic WBC Ur Squamous Epith Cells Influ A Molecular Assay Influ B Molecular Assay RSV Antigen SARS CoV-2 RNA Rapid MEJIA Negative 10/02/23 10/02/23 10/02/23 18:14 18:35 19:18 WBC RBC Hgb Hct MCV MCH MCHC RDW Coeff of [place]renity Plt Count Immature Gran % (Auto) Neut % (Auto) Lymph % (Auto) [place] % (Auto) Eos % (Auto) Baso % (Auto) Neut # (Auto) Lymph # (Auto) [place] # (Auto) Eos # (Auto) Baso # (Auto) Immature Gran # (Auto) Puncture Site Rbrach Base Excess 6.4 H O2 Saturation 87.3 L ABG pH 7.32 L ABG pCO2 63.0 H ABG pO2 58.0 L* ABG HCO3 32.5 H ABG Total CO2 34.4 H Mark Test + Hemoglobin 1.7 H Oxyhemoglobin 85.0 L Carboxyhemoglobin 3.2 H Total Hemoglobin 15.7 O2 Delivery Device Cannula Oxygen Liter Flow 3.00 Sodium Potassium Chloride Carbon Dioxide Anion Gap BUN Creatinine Estimated GFR (MDRD) BUN/Creatinine Ratio Glucose Calcium Total Bilirubin AST ALT Alkaline Phosphatase Troponin I NT-Pro-B Natriuret Pep Total Protein Albumin Globulin Albumin/Globulin Ratio Procalcitonin Urine Color Yellow Urine Clarity Clear Urine pH 7.0 Ur Specific [place] 1.020 Urine Protein Trace H Urine Glucose (UA) Negative Urine Ketones Negative Urine Blood Negative Urine Nitrite Negative Urine Bilirubin Negative Urine Urobilinogen 0.2 Ur Leukocyte Esterase Trace H Urine Microscopic WBC 0-2 Ur Squamous Epith Cells 2-5 Influ A Molecular Assay Negative by naat Influ B Molecular Assay Negative by naat RSV Antigen Negative by naat SARS CoV-2 RNA Rapid MEJIA 10/03/23 05:13 WBC 3.35 L D RBC 4.85 Hgb 14.2 Hct 45.9 MCV 94.6 MCH 29.3 MCHC 30.9 L RDW Coeff of Serenity 13.2 Plt Count 201 Immature Gran % (Auto) 0.6 Neut % (Auto) 80.6 H Lymph % (Auto) 16.7 [place] % (Auto) 1.8 Eos % (Auto) 0.0 Baso % (Auto) 0.3 Neut # (Auto) 2.7 Lymph # (Auto) 0.6 [place] # (Auto) 0.1 L Eos # (Auto) 0.0 Baso # (Auto) 0.0 Immature Gran # (Auto) 0.0 Puncture Site Base Excess O2 Saturation ABG pH ABG pCO2 ABG pO2 ABG HCO3 ABG Total CO2 Mark Test Hemoglobin Oxyhemoglobin Carboxyhemoglobin Total Hemoglobin O2 Delivery Device Oxygen Liter Flow Sodium 139.7 Potassium 4.62 Chloride 101.4 Carbon Dioxide 30.6 H Anion Gap 12.32 BUN 16.9 Creatinine 0.64 Estimated GFR (MDRD) 89.00 BUN/Creatinine Ratio 26.40 Glucose 120.6 H Calcium 9.31 Total Bilirubin 0.76 AST 28.9 ALT 17.0 Alkaline Phosphatase 64.0 Troponin I NT-Pro-B Natriuret Pep Total Protein 6.85 Albumin 4.05 Globulin 2.80 Albumin/Globulin Ratio 1.44 Procalcitonin Urine Color Urine Clarity Urine pH Ur Specific [place] Urine Protein Urine Glucose (UA) Urine Ketones Urine Blood Urine Nitrite Urine Bilirubin Urine Urobilinogen Ur Leukocyte Esterase Urine Microscopic WBC Ur Squamous Epith Cells Influ A Molecular Assay Influ B Molecular Assay RSV Antigen SARS CoV-2 RNA Rapid MEJIA Imaging Imaging: EXAM: CHEST RADIOGRAPH TECHNIQUE: Single frontal chest radiograph. HISTORY: Shortness of breath. COMPARISON: 08/31/2022. FINDINGS: There is improvement in the left pleural effusion with small effusion remaining with associated atelectasis. Resolution of previous right pleural effusion. The lungs are otherwise clear with mild scarring seen in the right lower lobe. No pneumothorax. Cardiac silhouette remains enlarged unchanged. Mediastinal silhouette and pulmonary vessels within normal limits. Atherosclerotic calcific changes seen in the aorta. Upper abdomen is unremarkable. No acute bony abnormality. Degenerative changes of the right shoulder. IMPRESSION: 1. A small residual left pleural effusion with associated atelectasis. No focal infiltrate. 2. Resolution of previous right pleural effusion. 3. Stable enlarged cardiac silhouette without edema. Review Review Statement: I have independently reviewed and interpreted the labs/EKGs/imaging that were ordered by the ER provider. I have reviewed all outside records that are available currently in our EMR including imaging/notes/labs from previous visits. Plan Reccomendations/Plan: 1. COPD Exacerbation - weaned down to baseline oxygen, received rocephin, azith, solumedrol, and duonebs Patient requesting to go home. No changes made to home medications. Rx for abx, steroids, and nebs sent in. Discussed importance of follow-up with PCP. Additional Planning: Case discussed with ED Physician, Dr. Batres. DVT Prophylaxis: Up with assist Smoking Cessation: 5 minutes spent discussing smoking cessation. Disposition: Admit to: Med/Surg Observation Discussed Plan of Care with Dr. Lori Hidalgo. If patient discharged with Left Ventricular Systolic Dysfunction: NA Discharged with a beta awais? [] If no, why not? [] Discharged with an scar/arb? [] If no, why not? [] DX: COPD EXACERBATION CARDIAC DIET ACTIVITY BRENDA FOLLOW-UP WITH PCP NEXT WEEK RX: AZITHROMYCIN, MEDROL PACK, DUONEBS Review With Patient Reviewed with Patient and Family: Patient and family have been counseled on condition and care plan and have no immediate questions. I have personally discussed and reviewed the patient's visit/current labs/imaging/decision making with Dr. Alexa Hidalgo, my supervising attending. Total number of minutes spent with patient 85 min. More than 50% of the time spent with this patient was devoted to counseling and coordination of care. Time of Admission:10/02/23 21:46 Time of Discharge: 10/03/23 09:30 Discharge Plan Discharge Activity Restrictions/Additional Instructions: Discharge home today, October 03, 2023 Cardiac diet Activity as tolerated Follow-up with PCP next week Medications: Azithromycin (Z-rod) take as directed until complete (antibiotics) Medrol dose pack - take as directed until complete (steroids) Duoneb Q4H (nebulizer treatments) Resume all medications as taken prior to hospitalization. Instructions: How to Stop Smoking (DC), COPD (Chronic Obstructive Pulmonary Disease) (GEN) Patient Disposition: HOME WITH FAMILY CARE Prescriptions: New ipratropium-albuterol 0.5 mg-3 mg(2.5 mg base)/3 mL Solution For Nebulization 3 ml NEB RTQ4H Qty: 90 0RF methylprednisolone [Medrol (Rod)] 4 mg tablets,dose pack See Rx Instructions .ROUTE .COMPLEX Qty: 21 0RF Rx Instructions: orally per package directions azithromycin 250 mg tablet See Rx Instructions .ROUTE .COMPLEX Qty: 6 0RF Rx Instructions: For 250 mg dose pack: take 500 mg today (day 1), then 250 mg for 4 days (days 2-5) Continued losartan 100 mg tablet See Rx Instructions .ROUTE .COMPLEX Qty: 90 1RF Dose Instruction: TAKE 1 TABLET BY MOUTH DAILY Rx Instructions: TAKE 1 TABLET BY MOUTH DAILY atenolol 50 mg tablet See Rx Instructions .ROUTE .COMPLEX Qty: 90 1RF Dose Instruction: TAKE 1 TABLET BY MOUTH DAILY Rx Instructions: TAKE 1 TABLET BY MOUTH DAILY aspirin 81 MG tablet,chewable 81 mg PO PRN PRN (Reason: pain) albuterol sulfate 90 mcg/actuation HFA aerosol inhaler See Rx Instructions .ROUTE .COMPLEX Qty: 18 1RF Dose Instruction: INHALE 2 PUFFS INTO THE LUNGS EVERY 4 TO 6 HOURS NEEDED FOR SHORTNESS OF BREATH OR WHEEZING Rx Instructions: INHALE 2 PUFFS INTO THE LUNGS EVERY 4 TO 6 HOURS NEEDED FOR SHORTNESS OF BREATH OR WHEEZING Did you review [place] [employer] for ALL controlled substances?: No Discussed opioids are addictive and Narcan is available by prescription or from pharmacy.: No Condition: Stable
[2023-10-03] MEDS: ZITHROMAX 500 MG in SODIUM CHLORIDE 250 ML IV SCH (09:30)
[2023-10-03] MEDS: ALBUTEROL 0.083% NEB NEB PRN (11:34)
--- NOTE | 2023-10-03 11:55 | PCM ---
Date of Service Date Seen by Provider: 10/03/23 Time Seen by Provider: 08:30 Admit Day/Time Admission Date: 10/02/23 Admission Time: 21:45 Reason for Admission Chief Complaint: COPD WITH EXACERBATION Hospital Provider Hospital Provider: MAKAYLA SEQUEIRA, [facility] Primary Care Physician Primary Care Physician: CELI BURGESS MD History of Present Illness History of Present Illness: 78 year old female presented to the ER with shortness of breath. Has pmh of COPD and CHF. States she has had worsening shortness of breath and a dry cough over the last couple days that hasn't gotten better. Wears 3L of oxygen continuously. In ER, O2 sat was in upper 80s. Improved after 2 breathing treatments to 93-94%. Denies any fever, chills, chest pain, N/V/D. PO2 significantly low on ABG. Case Discussed With Case Discussed With: Patient's case was discussed with the ER Physicians, Dr. Batres. [facility] Medical History Osteoarthritis M19.90 - Unspecified osteoarthritis, unspecified site (ICD-10) Emphysema lung J43.9 - Emphysema, unspecified (ICD-10) Surgical History Status post hysterectomy partial Z90.710 - Acquired absence of both cervix and uterus (ICD-10) Status post cholecystectomy Z90.49 - Acquired absence of other specified parts of digestive tract (ICD- 10) Family History FATHER Myocardial infarction Mother Dementia Social History Smoking and tobacco status: Former smoker Tobacco: How many years used: 50 How long ago did patient quit smokin month aog Quit status: quit date established Second hand smoke exposure: Yes Substance use type: does not use Special erick needs: No Agree to transfusion: Yes Adopted: No Caregiver/support person: No Foster care: No Household members: spouse Housing: house Marital status: M Lives independently: Yes Number of children: 3 service: No long-term: No Current occupational status: retired History of recent travel: No Current gender identity: female Seatbelt use: always Helmet use: No Drives intoxicated or rides with intoxicated chain saw driver: No Water heater temperature set < 120 degrees: Yes Working smoke detector in home: Yes Fire extinguisher in home: Yes Carbon monoxide detector in home: Yes Allergies Allergies Allergy/AdvReac Type Severity Reaction Status Date / Time codeine Allergy Severe Anaphylaxis Verified 10/02/23 18:03 Penicillins Allergy Severe Anaphylaxis Verified 10/02/23 18:03 Current Medications Home Medications aspirin 81 mg chewable tablet 81 mg PO PRN PRN pain 05/10/15 [History Confirmed 10/02/23 Last Taken 10/02/23] atenolol 50 mg tablet See Rx Instructions .Route .COMPLEX #90 tabs 09/09/23 [Rx Confirmed 10/02/23 Last Taken Unknown] losartan 100 mg tablet See Rx Instructions .Route .COMPLEX #90 tabs 09/09/23 [Rx Confirmed 10/02/23 Last Taken Unknown] albuterol sulfate 90 mcg/actuation aerosol inhaler See Rx Instructions .Route .COMPLEX #18 grams 10/03/23 [Rx Last Taken Unknown] azithromycin 250 mg tablet See Rx Instructions PO .COMPLEX #6 tabs 10/03/23 [Rx Last Taken Unknown] ipratropium 0.5 mg-albuterol 3 mg (2.5 mg base)/3 mL nebulization soln 3 ml NEB RTQ4H #90 mL 10/03/23 [Rx Last Taken Unknown] methylprednisolone 4 mg tablets in a dose pack (Medrol (Rod)) See Rx Instructions PO .COMPLEX #21 ea 10/03/23 [Rx Last Taken Unknown] Home Acetaminophen (Acetaminophen 325 Mg Tablet) 650 mg PO Q4H PRN PRN Reason: Mild Pain Albuterol Sulfate (Albuterol Sulfate 0.083% Vial.Neb) 2.5 mg NEB RTQ4H PRN PRN Reason: Wheezing Last Admin: 10/03/23 11:34 Dose: 2.5 mg Albuterol/Ipratropium (Ipratropium/Albuterol Vial.Neb) 3 ml NEB RTQ4H SWATI Last Admin: 10/03/23 10:21 Dose: 3 ml CEFTRIAXONE/D5W 1 GM PREMIX (Rocephin 1 Gm/50 Ml D5w) 1 gm in 50 mls @ 100 m ls/hr IV DAILY SWATI Stop: 10/05/23 21:59 Last Admin: 10/03/23 08:26 Dose: 100 mls/hr Azithromycin 500 mg/ Sodium (Chloride) 250 mls @ 250 mls/hr IV DAILY [facility] Stop: 10/06/23 08:59 Last Admin: 10/03/23 09:30 Dose: 250 mls/hr Methylprednisolone Sodium Succinate (Methylprednisolone Sod Succ/Pf 40 Mg/Ml Vial) 40 mg IVP Q8HR SWATI Last Admin: 10/03/23 05:30 Dose: 40 mg Ondansetron HCl (Ondansetron Hcl/Pf 4 Mg/2 Ml Sdv) 4 mg IVP Q6H PRN PRN Reason: Nausea / Vomiting Discontinued Medications Albuterol Sulfate (Albuterol Sulfate 0.083% Vial.Neb) 2.5 mg NEB ONCE ONE Stop: 10/02/23 18:31 Last Admin: 10/02/23 18:42 Dose: 2.5 mg Albuterol/Ipratropium (Ipratropium/Albuterol Vial.Neb) 3 ml NEB ONCE ONE Stop: 10/02/23 18:03 Last Admin: 10/02/23 18:23 Dose: 3 ml Sodium Chloride (Sodium Chloride) 1,000 mls @ 1,000 mls/hr IV BOLUS ONE Stop: 10/02/23 19:01 Last Infusion: 10/02/23 19:44 Dose: Infused Azithromycin 500 mg/ Sodium (Chloride) 250 mls @ 250 mls/hr IV ONCE ONE Stop: 10/02/23 19:02 Last Admin: 10/02/23 18:16 Dose: 250 mls/hr Methylprednisolone Sodium Succinate (Methylprednisolone Sod Succ/Pf 125 Mg/2 Ml Vial) 125 mg IVP ONCE ONE Stop: 10/02/23 18:03 Last Admin: 10/02/23 18:16 Dose: 125 mg Opioid Naive vs. Tolerant Does Patient Take Opioids?: No Is Patient Opioid Naive?: Yes What is Opioid Naive?: *Opioid Naive implies the patient is not already taking opioids or not chronically receiving opioids on a daily basis. *PRN dosing is not "usually" associated with tolerance. *Patients are at higher risk of over-sedation and aspiration. Is Patient Opioid Tolerant?: No What is Opioid Tolerant?: *Opioid Tolerance implies less than the expected response to an opioid. *Acquired tolerance is defined by the patient taking 60mg of oral morphine daily (or equianalgesic dose of another opioid) for 1 week or more. *Often associated with chronic pain. *May take more than usual dose to achieve desired pain control. Review of Systems Constitutional: Reports No symptoms Head: Reports Normocephalic Eyes: Reports No symptoms Ears: Reports No symptoms Nose: Reports No symptoms Mouth: Reports No symptoms Throat: Reports No symptoms Cardiovascular: Reports No symptoms Respiratory: Reports Cough (dry) and Shortness of air Gastrointestinal: Reports No symptoms Genitourinary: Reports No Symptoms Musculoskeletal: Reports No symptoms Endocrine: Reports No symptoms Hematology: Reports No symptoms Immunology: Reports No symptoms Neurological: Reports No symptoms Psychiatric: Reports No symptoms Physical examination Most Recent Vital Signs: Most Recent Vital Signs Temperature 98.0 F 10/03/23 10:00 Temperature Source Temporal Artery Scan 10/03/23 10:00 Temperature Source Infrared 10/02/23 17:59 Pulse Rate 89 10/03/23 10:00 Respiratory Rate 24 H 10/03/23 10:00 Blood Pressure 118/62 10/03/23 10:00 Blood Pressure Mean 80 10/03/23 10:00 Blood Pressure Right Arm 152/62 10/02/23 22:30 Blood Pressure Location Right Arm 10/03/23 10:00 Blood Pressure Position Supine 10/03/23 05:46 O2 Sat by Pulse Oximetry 94 L 10/03/23 10:00 Oxygen Delivery Method Nasal Cannula 10/03/23 11:48 Oxygen Flow Rate 4 10/03/23 10:00 Height 5 ft 3 in 10/02/23 22:30 Weight 112 lb 10/02/23 22:30 Telemetry Type Remote Telemetry 10/03/23 07:00 Telemetry Monitoring Continues 10/03/23 07:00 Telemetry Heart Rate 88 10/03/23 07:00 Telemetry SPO2 98 10/03/23 07:00 EKG IN Interval 0.06 L 10/03/23 07:00 EKG QRS Interval 0.05 L 10/03/23 07:00 Telemetry Strip Reading SR 10/03/23 07:00 Appearance: Positive No Apparent Distress, Alert and Oriented x3, Ill-Appearing and Thin Skin: Positive Warm HEENT: Positive Normocephalic and PERRLA Chest/Lungs: Positive Symmetrical With Equal Breath Sounds, Clear to Auscultation Bilaterally and Good Air Movement all 4 Lung [place] Heart: Positive RRR and Pulses Normal GI/: Positive Soft, Nontender, Bowel Sounds Normal and No Distention Musculoskeletal: Positive Not Examined Extremities: Positive Edema (+1-2 pitting to RLE, present for months - no injury), Intact Peripheral Pulses and Stable Joints Without Laxity Neurological: Positive Alert, Oriented and Muscle Strength 5/5 in Upper and Lower Extremities Bilaterally Labs This Visit Labs This Visit: Labs This Visit 10/02/23 10/02/23 10/02/23 18:05 18:10 18:12 WBC 8.77 RBC 5.08 Hgb 14.9 Hct 48.4 H MCV 95.3 MCH 29.3 MCHC 30.8 L RDW Coeff of [place]ren[place] 13.5 Plt Count 268 Immature Gran % (Auto) 0.3 Neut % (Auto) 56.1 Lymph % (Auto) 26.3 [place] % (Auto) 10.0 Eos % (Auto) 6.5 Baso % (Auto) 0.8 Neut # (Auto) 4.9 Lymph # (Auto) 2.3 [place] # (Auto) 0.9 Eos # (Auto) 0.6 Baso # (Auto) 0.1 Immature Gran # (Auto) 0.0 Puncture Site Base Excess O2 Saturation ABG pH ABG pCO2 ABG pO2 ABG HCO3 ABG Total CO2 Mark Test Hemoglobin Oxyhemoglobin Carboxyhemoglobin Total Hemoglobin O2 Delivery Device Oxygen Liter Flow Sodium 137.0 Potassium 4.52 Chloride 100.6 Carbon Dioxide 28.6 Anion Gap 12.32 BUN 13.1 Creatinine 0.54 L Estimated GFR (MDRD) 109.00 BUN/Creatinine Ratio 24.25 Glucose 153.8 H Calcium 9.76 Total Bilirubin 1.16 AST 33.6 ALT 19.0 Alkaline Phosphatase 74.3 Troponin I < 0.012 NT-Pro-B Natriuret Pep 376 H Total Protein 7.99 Albumin 4.60 Globulin 3.39 Albumin/Globulin Ratio 1.35 Procalcitonin < 0.05 Urine Color Urine Clarity Urine pH Ur Specific [place] Urine Protein Urine Glucose (UA) Urine Ketones Urine Blood Urine Nitrite Urine Bilirubin Urine Urobilinogen Ur Leukocyte Esterase Urine Microscopic WBC Ur Squamous Epith Cells Influ A Molecular Assay Influ B Molecular Assay RSV Antigen SARS CoV-2 RNA Rapid MEJIA Negative 10/02/23 10/02/23 10/02/23 18:14 18:35 19:18 WBC RBC Hgb Hct MCV MCH MCHC RDW Coeff of [place] Plt Count Immature Gran % (Auto) Neut % (Auto) Lymph % (Auto) [place] % (Auto) Eos % (Auto) Baso % (Auto) Neut # (Auto) Lymph # (Auto) [place] # (Auto) Eos # (Auto) Baso # (Auto) Immature Gran # (Auto) Puncture Site Rbrach Base Excess 6.4 H O2 Saturation 87.3 L ABG pH 7.32 L ABG pCO2 63.0 H ABG pO2 58.0 L* ABG HCO3 32.5 H ABG Total CO2 34.4 H Mark Test + Hemoglobin 1.7 H Oxyhemoglobin 85.0 L Carboxyhemoglobin 3.2 H Total Hemoglobin 15.7 O2 Delivery Device Cannula Oxygen Liter Flow 3.00 Sodium Potassium Chloride Carbon Dioxide Anion Gap BUN Creatinine Estimated GFR (MDRD) BUN/Creatinine Ratio Glucose Calcium Total Bilirubin AST ALT Alkaline Phosphatase Troponin I NT-Pro-B Natriuret Pep Total Protein Albumin Globulin Albumin/Globulin Ratio Procalcitonin Urine Color Yellow Urine Clarity Clear Urine pH 7.0 Ur Specific [place] 1.020 Urine Protein Trace H Urine Glucose (UA) Negative Urine Ketones Negative Urine Blood Negative Urine Nitrite Negative Urine Bilirubin Negative Urine Urobilinogen 0.2 Ur Leukocyte Esterase Trace H Urine Microscopic WBC 0-2 Ur Squamous Epith Cells 2-5 Influ A Molecular Assay Negative by naat Influ B Molecular Assay Negative by naat RSV Antigen Negative by naat SARS CoV-2 RNA Rapid MEJIA 10/03/23 05:13 WBC 3.35 L D RBC 4.85 Hgb 14.2 Hct 45.9 MCV 94.6 MCH 29.3 MCHC 30.9 L RDW Coeff of [place] 13.2 Plt Count 201 Immature Gran % (Auto) 0.6 Neut % (Auto) 80.6 H Lymph % (Auto) 16.7 [place] % (Auto) 1.8 Eos % (Auto) 0.0 Baso % (Auto) 0.3 Neut # (Auto) 2.7 Lymph # (Auto) 0.6 [place] # (Auto) 0.1 L Eos # (Auto) 0.0 Baso # (Auto) 0.0 Immature Gran # (Auto) 0.0 Puncture Site Base Excess O2 Saturation ABG pH ABG pCO2 ABG pO2 ABG HCO3 ABG Total CO2 Mark Test Hemoglobin Oxyhemoglobin Carboxyhemoglobin Total Hemoglobin O2 Delivery Device Oxygen Liter Flow Sodium 139.7 Potassium 4.62 Chloride 101.4 Carbon Dioxide 30.6 H Anion Gap 12.32 BUN 16.9 Creatinine 0.64 Estimated GFR (MDRD) 89.00 BUN/Creatinine Ratio 26.40 Glucose 120.6 H Calcium 9.31 Total Bilirubin 0.76 AST 28.9 ALT 17.0 Alkaline Phosphatase 64.0 Troponin I NT-Pro-B Natriuret Pep Total Protein 6.85 Albumin 4.05 Globulin 2.80 Albumin/Globulin Ratio 1.44 Procalcitonin Urine Color Urine Clarity Urine pH Ur Specific [place] Urine Protein Urine Glucose (UA) Urine Ketones Urine Blood Urine Nitrite Urine Bilirubin Urine Urobilinogen Ur Leukocyte Esterase Urine Microscopic WBC Ur Squamous Epith Cells Influ A Molecular Assay Influ B Molecular Assay RSV Antigen SARS CoV-2 RNA Rapid MEJIA Imaging Imaging: EXAM: CHEST RADIOGRAPH TECHNIQUE: Single frontal chest radiograph. HISTORY: Shortness of breath. COMPARISON: 08/31/2022. FINDINGS: There is improvement in the left pleural effusion with small effusion remaining with associated atelectasis. Resolution of previous right pleural effusion. The lungs are otherwise clear with mild scarring seen in the right lower lobe. No pneumothorax. Cardiac silhouette remains enlarged unchanged. Mediastinal silhouette and pulmonary vessels within normal limits. Atherosclerotic calcific changes seen in the aorta. Upper abdomen is unremarkable. No acute bony abnormality. Degenerative changes of the right shoulder. IMPRESSION: 1. A small residual left pleural effusion with associated atelectasis. No focal infiltrate. 2. Resolution of previous right pleural effusion. 3. Stable enlarged cardiac silhouette without edema. Review Statement Review Statement: I have independently reviewed and interpreted the labs/EKGs/imaging that were ordered by the ER provider. I have reviewed all outside records that are availa ble currently in our EMR including imaging/notes/labs from previous visits. Plan Plan: 1. COPD Exacerbation - on 3L, desaturates down into 80s on exertion, was on 88% when RT entered room to give breathing treatment, rocephin, azith, steroids, nebs 2. Hypertension - chronic, continue home medications 3. Dyslipidemia - chronic, continue home medications DVT Prophylaxis: up with assist Time Spent: Greater than 80 minutes spent with patient, 50% of the time spent with this patient was devoted to counseling and coordination of care. [facility] minutes spent discussing advance care planning. Disposition: Admit to: Med/surg Observation Full code Discussed Plan of Care with Dr. Lori Burgess. Medications Medication Orders: Medications Ordered Category Date Time Status Acetaminophen [Tylenol] Meds 10/02/23 21:47 Active 650 mg PO Q4H PRN Albuterol Sulfate 0.083% Neb [Albuterol 0.083% Neb] Meds 10/02/23 21:47 Active 2.5 mg NEB RTQ4H PRN Azithromycin Inj [Zithromax] 500 mg Meds 10/03/23 09:00 Active 0.9 % Sodium Chloride [Sodium Chloride] 250 ml IV DAILY Ceftriaxone/D5w 1 gm Premix [Rocephin 1 gm/50 ml D5w] Meds 10/02/23 22:00 Active 1 gm in 50 ml IV DAILY Ipratropium/Albuterol Neb [Duoneb] Meds 10/02/23 22:00 Active 3 ml NEB RTQ4H Methylprednisolone Sod Succ/Pf [Solu-Medrol 40 mg] Meds 10/03/23 05:00 Active 40 mg IVP Q8HR Ondansetron HCl/Pf [Zofran 4 mg/2 ml] Meds 10/02/23 21:47 Active 4 mg IVP Q6H PRN
[2023-10-03 14:00] LABS: ABG O2 HGB 84.5 % (95-100); BEecf 6.2 (-2.0-3.0); COHb 2.7 (0.5-1.5); MetHb 1.4 (0-1.5); TCO2 32.5 (19-24); sO2 84.2 % (94-98); tHb 14.4 g/dl (11.7-17.4)
[2023-10-03] MEDS: PULMICORT 1 MG/2 ML NEB SCH (18:00)
[2023-10-03 18:05] LABS: ABG O2 HGB 89.5 % (95-100); ABG PH 7.43 (7.35-7.45); BEecf 4.2 (-2.0-3.0); COHb 2.4 (0.5-1.5); HCO3 28.5 (21-28); MetHb 1.1 (0-1.5); TCO2 29.8 (19-24); sO2 90.1 % (94-98); tHb 14.3 g/dl (11.7-17.4)
[2023-10-04] MEDS: PULMICORT 1 MG/2 ML NEB SCH ×5 (00:01→23:06)
[2023-10-04] MEDS: DUONEB NEB SCH ×6 (02:10→22:00)
[2023-10-04] MEDS: ALBUTEROL 0.083% NEB NEB PRN (02:43)
[2023-10-04 05:14] LABS: BASOPHILS % (AUTO) 0.1 % (0.0-3.0); HEMATOCRIT 41.7 % (37.0-47.0); HEMOGLOBIN 13.3 g/dl (12.0-16.0); IMMATURE GRANULOCYTE # (AUTO) 0.1 (0.0-1.0); IMMATURE GRANULOCYTE % (AUTO) 0.5 % (0.0-5.0); LYMPHOCYTES # (AUTO) 0.4 K/uL (0.60-3.4); LYMPHOCYTES % (AUTO) 3.4 (10.0-50.0); MEAN CORPUSCULAR HEMOGLOBIN 29.4 pg (27.0-31.0); MEAN CORPUSCULAR HGB CONC 31.9 (31.8-35.4); MEAN CORPUSCULAR VOLUME 92.3 fl (81.0-99.0); MONOCYTES # (AUTO) 0.7 K/uL (0.4-2.0); MONOCYTES % (AUTO) 5.5 (0-10); NEUTROPHILS # (AUTO) 11.6 K/ul (2.0-6.9); NEUTROPHILS % (AUTO) 90.5 % (42.2-75.2); PLATELET COUNT 207 10^3/uL (140-440); RDW COEFFICIENT OF VARIATION 13.4 % (11.6-14.8); RED BLOOD COUNT 4.52 10^6/ul (4.20-5.40); WHITE BLOOD COUNT 12.78 K/ul (4.6-10.2)
[2023-10-04] MEDS: SOLU-MEDROL 40 MG IVP SCH ×3 (05:24→20:23)
[2023-10-04 05:29] LABS: ALANINE AMINOTRANSFERASE 19.8 U/L (0-35); ALBUMIN 3.96 g/dL (3.5-5.0); ALKALINE PHOSPHATASE 59.1 U/L (53-141); ASPARTATE AMINO TRANSFERASE 38.4 U/L (14-36); BILIRUBIN,TOTAL 0.58 mg/dL (0.2-1.3); CALCIUM 9.64 mg/dL (8.4-10.2); CARBON DIOXIDE 31.4 mmol/L (22-30.0); CHLORIDE 102.1 mmol/L (98-107); CREATININE 0.6 mg/dL (0.60-1.30); POTASSIUM 3.97 mmol/L (3.5-5.1); SODIUM 137.7 mmol/L (134.5-145); TOTAL PROTEIN 6.83 g/dL (6.3-8.2)
[2023-10-04] MEDS: ROCEPHIN 1 GM/50 ML D5W 1 GM/50 ML BAG IV SCH (08:06)
--- NOTE | 2023-10-04 08:21 | RS.SLPCNOT ---
Speech Case Note Date of Note: 10/04/23 Note: Bedside Dysphagia Evaluation ordered 10/02/23. I spoke with patient's RN, Sanam Estrella", who stated the evaluation was most likely triggered from the Admission Assessment. She was able to take all her medications without difficulty. Patient states her main issue is breathing while eating. Agree that Bedside Dysphagia Evaluation not necessary at this time.
[2023-10-04 08:32] LABS: ABG O2 HGB 92.4 % (95-100); ABG PH 7.43 (7.35-7.45); BEecf 8.2 (-2.0-3.0); COHb 2.8 (0.5-1.5); HCO3 32.5 (21-28); MetHb 1.1 (0-1.5); sO2 93.5 % (94-98); tHb 14.2 g/dl (11.7-17.4)
[2023-10-04] MEDS: ZITHROMAX 500 MG in SODIUM CHLORIDE 250 ML IV SCH (09:14)
--- NOTE | 2023-10-04 10:36 | PCM.PROG ---
Date/Time Seen Date Seen by Provider: 10/04/23 Time Seen by Provider: 08:30 Provider Provider[facility] Chief Complaint Chief Complaint: COPD WITH EXACERBATION Subjective Subjective: Patient states she's feeling better today. Denies complaints. Has been on vapotherm overnight, saturating in mid 90s but drops with any exertion. ABG improving this morning. Objective Appearance: Positive No Apparent Distress and Alert and Oriented x3 Chest/Lungs: Positive Clear to Auscultation Bilaterally and Wheezes (mild); Negative Rales or Rhonci Heart: Positive RRR GI/: Positive Soft, Nontender and Bowel Sounds Normal Neurological: Positive Cranial Nerves Intact, Alert and Other (+generalized weakness ) Vital Signs Vital Signs: Vital Signs: Last 24 Hours 10/03/23 11:00 10/03/23 11:48 10/03/23 13:00 Temperature Temperature Source Pulse Rate Respiratory Rate Blood Pressure Blood Pressure Mean Blood Pressure Location Blood Pressure Position O2 Sat by Pulse Oximetry Oxygen Delivery Method Nasal Cannula Nasal Cannula Nasal Cannula Oxygen Flow Rate Fraction of Inspired Oxygen (FIO2) Telemetry Type Telemetry Monitoring Telemetry Heart Rate Telemetry SPO2 EKG MI Interval EKG QRS Interval Telemetry Strip Reading 10/03/23 13:00 10/03/23 14:00 10/03/23 14:00 Temperature 98.4 F Temperature Source Temporal Artery Scan Pulse Rate 91 Respiratory Rate 24 H Blood Pressure 117/61 Blood Pressure Mean 79 Blood Pressure Location Left Arm Blood Pressure Position Sitting O2 Sat by Pulse Oximetry 92 L Oxygen Delivery Method Nasal Cannula Vapo Therm Oxygen Flow Rate 30 Fraction of Inspired Oxygen (FIO2) 50 Telemetry Type Remote Telemetry Telemetry Monitoring Continues Telemetry Heart Rate 93 Telemetry SPO2 98 EKG MI Interval 0.20 EKG QRS Interval 0.08 Telemetry Strip Reading SR WITH PAC 10/03/23 14:00 10/03/23 14:00 10/03/23 15:00 Temperature Temperature Source Pulse Rate Respiratory Rate Blood Pressure Blood Pressure Mean Blood Pressure Location Blood Pressure Position O2 Sat by Pulse Oximetry 93 L 94 L Oxygen Delivery Method Vapo Therm Vapo Therm Oxygen Flow Rate Fraction of Inspired Oxygen (FIO2) 50 50 Telemetry Type Telemetry Monitoring Telemetry Heart Rate Telemetry SPO2 EKG MI Interval EKG QRS Interval Telemetry Strip Reading 10/03/23 16:00 10/03/23 17:00 10/03/23 17:50 Temperature Temperature Source Pulse Rate Respiratory Rate Blood Pressure Blood Pressure Mean Blood Pressure Location Blood Pressure Position O2 Sat by Pulse Oximetry Oxygen Delivery Method Vapo Therm Vapo Therm Vapo Therm Oxygen Flow Rate Fraction of Inspired Oxygen (FIO2) Telemetry Type Telemetry Monitoring Telemetry Heart Rate Telemetry SPO2 EKG MI Interval EKG QRS Interval Telemetry Strip Reading 10/03/23 18:00 10/03/23 18:00 10/03/23 18:00 Temperature 98.2 F Temperature Source Temporal Artery Scan Pulse Rate 104 H Respiratory Rate 20 Blood Pressure 137/66 Blood Pressure Mean 89 Blood Pressure Location Right Arm Blood Pressure Position O2 Sat by Pulse Oximetry 82 L 90 L 91 L Oxygen Delivery Method Vapo Therm Vapo Therm Oxygen Flow Rate 30 Fraction of Inspired Oxygen (FIO2) 45 50 50 Telemetry Type Telemetry Monitoring Telemetry Heart Rate Telemetry SPO2 EKG MI Interval EKG QRS Interval Telemetry Strip Reading 10/03/23 19:00 10/03/23 19:00 10/03/23 20:00 Temperature Temperature Source Pulse Rate Respiratory Rate Blood Pressure Blood Pressure Mean Blood Pressure Location Blood Pressure Position O2 Sat by Pulse Oximetry Oxygen Delivery Method Vapo Therm Vapo Therm Oxygen Flow Rate Fraction of Inspired Oxygen (FIO2) Telemetry Type Remote Telemetry Telemetry Monitoring Continues Telemetry Heart Rate 71 Telemetry SPO2 95 EKG MI Interval 0.14 EKG QRS Interval 0.09 Telemetry Strip Reading SINUS RHYTHM 10/03/23 20:00 10/03/23 20:12 10/03/23 20:13 Temperature Temperature Source Pulse Rate Respiratory Rate 22 H Blood Pressure Blood Pressure Mean Blood Pressure Location Blood Pressure Position O2 Sat by Pulse Oximetry 95 95 Oxygen Delivery Method Vapo Therm Vapo Therm Oxygen Flow Rate 30 50 Fraction of Inspired Oxygen (FIO2) 50 50 Telemetry Type Telemetry Monitoring Telemetry Heart Rate Telemetry SPO2 EKG MI Interval EKG QRS Interval Telemetry Strip Reading 10/03/23 21:00 10/03/23 21:13 10/03/23 22:00 Temperature 98.3 F Temperature Source Temporal Artery Scan Pulse Rate 62 Respiratory Rate 18 Blood Pressure 133/76 Blood Pressure Mean 95 Blood Pressure Location Left Arm Blood Pressure Position Supine O2 Sat by Pulse Oximetry 96 Oxygen Delivery Method Vapo Therm Vapo Therm Vapo Therm Oxygen Flow Rate 30 Fraction of Inspired Oxygen (FIO2) Telemetry Type Telemetry Monitoring Telemetry Heart Rate Telemetry SPO2 EKG MI Interval EKG QRS Interval Telemetry Strip Reading 10/03/23 23:00 10/04/23 00:00 10/04/23 01:00 Temperature Temperature Source Pulse Rate Respiratory Rate Blood Pressure Blood Pressure Mean Blood Pressure Location Blood Pressure Position O2 Sat by Pulse Oximetry Oxygen Delivery Method Vapo Therm Vapo Therm Vapo Therm Oxygen Flow Rate Fraction of Inspired Oxygen (FIO2) Telemetry Type Telemetry Monitoring Telemetry Heart Rate Telemetry SPO2 EKG MI Interval EKG QRS Interval Telemetry Strip Reading 10/04/23 01:00 10/04/23 02:00 10/04/23 02:00 Temperature Temperature Source Pulse Rate Respiratory Rate Blood Pressure Blood Pressure Mean Blood Pressure Location Blood Pressure Position O2 Sat by Pulse Oximetry 93 L Oxygen Delivery Method Vapo Therm Oxygen Flow Rate Fraction of Inspired Oxygen (FIO2) 30 Telemetry Type Remote Telemetry Telemetry Monitoring Continues Telemetry Heart Rate 75 Telemetry SPO2 93 EKG MI Interval 0.17 EKG QRS Interval 0.07 Telemetry Strip Reading SR 10/04/23 02:50 10/04/23 04:00 10/04/23 05:00 Temperature Temperature Source Pulse Rate Respiratory Rate Blood Pressure Blood Pressure Mean Blood Pressure Location Blood Pressure Position O2 Sat by Pulse Oximetry Oxygen Delivery Method Vapo Therm Vapo Therm Vapo Therm Oxygen Flow Rate Fraction of Inspired Oxygen (FIO2) Telemetry Type Telemetry Monitoring Telemetry Heart Rate Telemetry SPO2 EKG MI Interval EKG QRS Interval Telemetry Strip Reading 10/04/23 05:08 10/04/23 05:48 10/04/23 06:00 Temperature 97.6 F Temperature Source Temporal Artery Scan Pulse Rate 70 Respiratory Rate 17 Blood Pressure 118/59 L Blood Pressure Mean 78 Blood Pressure Location Left Arm Blood Pressure Position Supine O2 Sat by Pulse Oximetry 94 L 94 L Oxygen Delivery Method Vapo Therm Vapo Therm Oxygen Flow Rate 50 Fraction of Inspired Oxygen (FIO2) 50 Telemetry Type Telemetry Monitoring Telemetry Heart Rate Telemetry SPO2 EKG MI Interval EKG QRS Interval Telemetry Strip Reading 10/04/23 07:00 10/04/23 07:00 10/04/23 07:48 Temperature Temperature Source Pulse Rate Respiratory Rate Blood Pressure Blood Pressure Mean Blood Pressure Location Blood Pressure Position O2 Sat by Pulse Oximetry 92 L Oxygen Delivery Method Vapo Therm Vapo Therm Oxygen Flow Rate Fraction of Inspired Oxygen (FIO2) 50 Telemetry Type Remote Telemetry Telemetry Monitoring Continues Telemetry Heart Rate 63 Telemetry SPO2 97 EKG MI Interval 0.14 EKG QRS Interval 0.08 Telemetry Strip Reading NSR 10/04/23 08:00 10/04/23 09:09 10/04/23 09:11 Temperature Temperature Source Pulse Rate Respiratory Rate Blood Pressure Blood Pressure Mean Blood Pressure Location Blood Pressure Position O2 Sat by Pulse Oximetry 92 L 92 L Oxygen Delivery Method Vapo Therm Vapo Therm Oxygen Flow Rate Fraction of Inspired Oxygen (FIO2) 45 45 Telemetry Type Telemetry Monitoring Telemetry Heart Rate Telemetry SPO2 EKG MI Interval EKG QRS Interval Telemetry Strip Reading 10/04/23 09:11 10/04/23 10:00 Temperature 97.8 F Temperature Source Oral Pulse Rate 88 Respiratory Rate 19 Blood Pressure 124/65 Blood Pressure Mean 84 Blood Pressure Location Right Arm Blood Pressure Position Supine O2 Sat by Pulse Oximetry 92 L 99 Oxygen Delivery Method Vapo Therm Oxygen Flow Rate 30 Fraction of Inspired Oxygen (FIO2) 45 45 Telemetry Type Telemetry Monitoring Telemetry Heart Rate Telemetry SPO2 EKG MI Interval EKG QRS Interval Telemetry Strip Reading Lab Results Lab Results: Lab Results: Last 24 Hours 10/04/23 10/04/23 10/03/23 08:20 04:55 17:56 WBC 12.78 H D RBC 4.52 Hgb 13.3 Hct 41.7 MCV 92.3 MCH 29.4 MCHC 31.9 RDW Coeff of Serenity 13.4 Plt Count 207 Immature Gran % (Auto) 0.5 Neut % (Auto) 90.5 H Lymph % (Auto) 3.4 L [place] % (Auto) 5.5 Eos % (Auto) 0.0 Baso % (Auto) 0.1 Neut # (Auto) 11.6 H Lymph # (Auto) 0.4 L [place] # (Auto) 0.7 Eos # (Auto) 0.0 Baso # (Auto) 0.0 Immature Gran # (Auto) 0.1 Puncture Site Rb Rbr Base Excess 8.2 H 4.2 H O2 Saturation 93.5 L 90.1 L ABG pH 7.43 7.43 ABG pCO2 49.0 H 43.0 ABG pO2 67.0 L 57.0 L* ABG HCO3 32.5 H 28.5 H ABG Total CO2 34.0 H 29.8 H Mark Test + + Hemoglobin 1.1 1.1 Oxyhemoglobin 92.4 L 89.5 L Carboxyhemoglobin 2.8 H 2.4 H Total Hemoglobin 14.2 14.3 O2 Delivery Device Vapotherm Vapotherm Oxygen Liter Flow FiO2 % 50.0 Sodium 137.7 Potassium 3.97 Chloride 102.1 Carbon Dioxide 31.4 H Anion Gap 8.17 BUN 25.0 H Creatinine 0.60 Estimated GFR (MDRD) 96.00 BUN/Creatinine Ratio 41.66 Glucose 132.0 H Calcium 9.64 Total Bilirubin 0.58 AST 38.4 H ALT 19.8 Alkaline Phosphatase 59.1 Total Protein 6.83 Albumin 3.96 Globulin 2.87 Albumin/Globulin Ratio 1.37 10/03/23 13:55 WBC RBC Hgb Hct MCV MCH MCHC RDW Coeff of Serenity Plt Count Immature Gran % (Auto) Neut % (Auto) Lymph % (Auto) [place] % (Auto) Eos % (Auto) Baso % (Auto) Neut # (Auto) Lymph # (Auto) [place] # (Auto) Eos # (Auto) Baso # (Auto) Immature Gran # (Auto) Puncture Site Rbrach Base Excess 6.2 H O2 Saturation 84.2 L ABG pH 7.40 ABG pCO2 50.0 H ABG pO2 49.0 L* ABG HCO3 31.0 H ABG Total CO2 32.5 H Mark Test + Hemoglobin 1.4 Oxyhemoglobin 84.5 L Carboxyhemoglobin 2.7 H Total Hemoglobin 14.4 O2 Delivery Device Cannula Oxygen Liter Flow 3.50 FiO2 % Sodium Potassium Chloride Carbon Dioxide Anion Gap BUN Creatinine Estimated GFR (MDRD) BUN/Creatinine Ratio Glucose Calcium Total Bilirubin AST ALT Alkaline Phosphatase Total Protein Albumin Globulin Albumin/Globulin Ratio Additional Comments Additional Comments: I have independently reviewed and interpreted the labs/EKGs/imaging ordered during this hospital stay. I have reviewed outside records that are available in our EMR that pertain to medical stay including imaging/notes/labs from previous visits. Active Medications Active Medications: Medications Generic Name Dose Route Start Last Admin Trade Name Freq PRN Reason Stop Dose Admin Acetaminophen 650 mg 10/02/23 21:47 Acetaminophen 325 Mg Tablet PO Q4H PRN Mild Pain Albuterol Sulfate 2.5 mg 10/02/23 21:47 10/04/23 02:43 Albuterol Sulfate 0.083% Vial.Neb NEB 2.5 mg RTQ4H PRN Administration Wheezing Albuterol/Ipratropium 3 ml 10/02/23 22:00 10/04/23 09:15 Ipratropium/Albuterol Vial.Neb NEB 3 ml RTQ4H SWATI Administration Budesonide 2 mg 10/03/23 18:00 10/04/23 05:34 Budesonide 1 Mg/2 Ml Vial.Neb NEB 2 mg RTQ6H SWATI Administration CEFTRIAXONE/D5W 1 GM PREMIX 1 gm in 50 mls @ 100 mls/hr 10/02/23 22:00 10/04/23 08:06 Rocephin 1 Gm/50 Ml D5w IV 10/05/23 21:59 100 mls/hr DAILY SWATI Administration Azithromycin 500 mg/ Sodium 250 mls @ 250 mls/hr 10/03/23 09:00 10/04/23 09:14 Chloride IV 10/06/23 08:59 250 mls/hr DAILY SWATI Administration Methylprednisolone Sodium Succinate 40 mg 10/03/23 05:00 10/04/23 05:24 Methylprednisolone Sod Succ/Pf 40 Mg/Ml Vial IVP 40 mg Q8HR SWATI Administration Ondansetron HCl 4 mg 10/02/23 21:47 Ondansetron Hcl/Pf 4 Mg/2 Ml Sdv IVP Q6H PRN Nausea / Vomiting Plan Plan: 1. Acute COPD Exacerbation - On vapotherm 30L at 50% FIO2, discussed with RT weaning down requirement, goal to get back to her 3L at baseline, rocephin, azith, steroids, nebs. CTA ordered to r/o PE, mucous plug, pneumonia. 2. Hypertension - chronic, continue home medications 3. Dyslipidemia - chronic, continue home medications Dispo: Made inpt today DVT: Lovenox Review Statement Review Statement: I have personally discussed and reviewed the patient's visit/currently labs/imaging/decision making with Dr. Burgess, my supervising attending. Greater that 50 minutes spent with patient, 50% of the time spent with this patient was devoted to counseling and coordination of care.
--- NOTE | 2023-10-04 12:16 | CT ---
EXAM: CHEST CTA WITH CONTRAST (PULMONARY ARTERY) HISTORY: Chest pain and shortness of breath. TECHNIQUE: CTA acquisition of the chest from the thoracic inlet to the upper abdomen following IV con trast administration timed to filling of the pulmonary artery. IV Contrast: 100 mL of Omnipaque 350 administered. 3D/MIP/VR images were utilized. CT Dose Reduction Techniques Employed: Yes. COMPARISON: Reviewed, most recently 08/31/2022. FINDINGS: Pulmonary Embolism: - Diagnostic quality: Adequate. - Central (Main/Lobar/Interlobar): No embolus. - Peripheral (Segmental/Subsegmental): No embolus. - Right ventricle/Left ventricle ratio: Normal. Multifocal abnormalities within the thyroid with substernal extension calcifications. Thyroid ultras ound as an outpatient is advised to exclude malignancy. Prominent vascular calcifications. Scattere d emphysematous change. Streaky airspace opacities throughout with mild interlobular septal thickeni ng and persistent left lower lobe consolidation. Cardiomegaly. Severe vascular calcifications. Inc reasing ascending thoracic aortic aneurysm measuring 6.4 x 6.1 cm. Coronary artery calcifications. No pericardial effusion. Central indentation of the thoracic cavity is seen. Multilevel degenerativ e changes. 10 mm solid ground-glass nodule right apex is new and suspicious, image 22 of 119. IMPRESSION: 1. Normal CT pulmonary angiogram with no evidence of pulmonary artery embolism. 2. Multifocal abnormalities within the thyroid with substernal extension calcifications. Thyroid ul trasound as an outpatient is advised to exclude malignancy. 3. Increasing ascending thoracic aortic aneurysm measuring 6.4 x 6.1 cm. Worsening multifocal airsp scar disease with persistent left lower lobe pneumonia. 4. 10 mm solid ground-glass nodule right apex is new and suspicious, image 22 of 119. Unexpected fi nding. All CT scans are performed using dose optimization techniques as appropriate to the performed exam an d include at least one of the following: Automated exposure control, adjustment of the mA and/or kV according t o size, and the use of iterative reconstruction technique.
[2023-10-04] MEDS: LOVENOX SUBCUT SCH (12:20)
[2023-10-05] MEDS: DUONEB NEB SCH ×6 (02:08→21:20)
[2023-10-05 05:03] LABS: HEMATOCRIT 42.2 % (37.0-47.0); HEMOGLOBIN 13.2 g/dl (12.0-16.0); IMMATURE GRANULOCYTE # (AUTO) 0.1 (0.0-1.0); IMMATURE GRANULOCYTE % (AUTO) 0.6 % (0.0-5.0); LYMPHOCYTES # (AUTO) 0.4 K/uL (0.60-3.4); LYMPHOCYTES % (AUTO) 3.1 (10.0-50.0); MEAN CORPUSCULAR HEMOGLOBIN 28.9 pg (27.0-31.0); MEAN CORPUSCULAR HGB CONC 31.3 (31.8-35.4); MEAN CORPUSCULAR VOLUME 92.5 fl (81.0-99.0); MONOCYTES # (AUTO) 0.7 K/uL (0.4-2.0); MONOCYTES % (AUTO) 6.1 (0-10); NEUTROPHILS # (AUTO) 10.5 K/ul (2.0-6.9); NEUTROPHILS % (AUTO) 90.2 % (42.2-75.2); PLATELET COUNT 189 10^3/uL (140-440); RDW COEFFICIENT OF VARIATION 13.6 % (11.6-14.8); RED BLOOD COUNT 4.56 10^6/ul (4.20-5.40); WHITE BLOOD COUNT 11.68 K/ul (4.6-10.2)
[2023-10-05] MEDS: SOLU-MEDROL 40 MG IVP SCH ×3 (05:07→20:24)
[2023-10-05 05:16] LABS: ALANINE AMINOTRANSFERASE 24.6 U/L (0-35); ALBUMIN 3.74 g/dL (3.5-5.0); ALKALINE PHOSPHATASE 54.3 U/L (53-141); ASPARTATE AMINO TRANSFERASE 42.3 U/L (14-36); BILIRUBIN,TOTAL 0.51 mg/dL (0.2-1.3); BLOOD UREA NITROGEN 20.8 mg/dL (7-17); CALCIUM 9.46 mg/dL (8.4-10.2); CARBON DIOXIDE 32.8 mmol/L (22-30.0); CHLORIDE 101.4 mmol/L (98-107); CREATININE 0.56 mg/dL (0.60-1.30); GLUCOSE 132.8 mg/dL (74-106); POTASSIUM 4.24 mmol/L (3.5-5.1); TOTAL PROTEIN 6.46 g/dL (6.3-8.2)
[2023-10-05] MEDS: PULMICORT 1 MG/2 ML NEB SCH (05:28)
[2023-10-05] MEDS: LOVENOX SUBCUT SCH (08:43)
[2023-10-05] MEDS: ROCEPHIN 1 GM/50 ML D5W 1 GM/50 ML BAG IV SCH (08:44)
--- NOTE | 2023-10-05 09:38 | PCM.PROG ---
Date/Time Seen Date Seen by Provider: 10/05/23 Time Seen by Provider: 08:30 Provider Provider: [facility] Chief Complaint Chief Complaint: COPD WITH EXACERBATION Subjective Subjective: Patient transitioned off of vapotherm and on 5L this morning. She is feeling better. Still getting hypoxic with ambulation/exertion/coughing. She is wanting to go home, states she feels at her baseline. Encouraged her to stay another day. Objective Appearance: Positive No Apparent Distress and Alert and Oriented x3 Chest/Lungs: Positive Clear to Auscultation Bilaterally and Wheezes (mild, improved ); Negative Rales or Rhonci Heart: Positive RRR GI/: Positive Soft, Nontender and Bowel Sounds Normal Neurological: Positive Cranial Nerves Intact, Alert and Other (+generalized we akness ) Vital Signs Vital Signs: Vital Signs: Last 24 Hours 10/04/23 10:00 10/04/23 13:00 10/04/23 13:23 Temperature 97.8 F Temperature Source Oral Pulse Rate 88 Respiratory Rate 19 Blood Pressure 124/65 Blood Pressure Mean 84 Blood Pressure Location Right Arm Blood Pressure Position Supine O2 Sat by Pulse Oximetry 99 97 Oxygen Delivery Method Vapo Therm Vapo Therm Oxygen Flow Rate 30 Fraction of Inspired Oxygen (FIO2) 45 40 Telemetry Type Remote Telemetry Telemetry Monitoring Continues Telemetry Heart Rate 67 Telemetry SPO2 99 EKG LA Interval 0.14 EKG QRS Interval 0.08 Telemetry Strip Reading NSR 10/04/23 13:23 10/04/23 14:00 10/04/23 17:44 Temperature 97.8 F Temperature Source Oral Pulse Rate 86 Respiratory Rate 17 Blood Pressure 125/65 Blood Pressure Mean 85 Blood Pressure Location Right Arm Blood Pressure Position Supine O2 Sat by Pulse Oximetry 96 96 92 L Oxygen Delivery Method Vapo Therm Oxygen Flow Rate 30 Fraction of Inspired Oxygen (FIO2) 40 45 35 Telemetry Type Telemetry Monitoring Telemetry Heart Rate Telemetry SPO2 EKG LA Interval EKG QRS Interval Telemetry Strip Reading 10/04/23 17:45 10/04/23 19:00 10/04/23 19:30 Temperature 98.1 F Temperature Source Temporal Artery Scan Pulse Rate 95 Respiratory Rate 20 20 Blood Pressure 121/61 Blood Pressure Mean 81 Blood Pressure Location Right Arm Blood Pressure Position Sitting O2 Sat by Pulse Oximetry 93 L Oxygen Delivery Method Vapo Therm Vapo Therm Oxygen Flow Rate 30 Fraction of Inspired Oxygen (FIO2) 45 35 Telemetry Type Remote Telemetry Telemetry Monitoring Continues Telemetry Heart Rate 87 Telemetry SPO2 91 L EKG LA Interval 0.19 EKG QRS Interval 0.04 L Telemetry Strip Reading SR 10/04/23 19:42 10/04/23 21:36 10/04/23 22:00 Temperature 97.2 F L Temperature Source Temporal Artery Scan Pulse Rate 86 Respiratory Rate 20 Blood Pressure 121/70 Blood Pressure Mean 87 Blood Pressure Location Right Arm Blood Pressure Position Supine O2 Sat by Pulse Oximetry 92 L 94 L 90 L Oxygen Delivery Method Vapo Therm Vapo Therm Oxygen Flow Rate 30 30 Fraction of Inspired Oxygen (FIO2) 35 30 Telemetry Type Telemetry Monitoring Telemetry Heart Rate Telemetry SPO2 EKG LA Interval EKG QRS Interval Telemetry Strip Reading 10/05/23 01:00 10/05/23 02:00 10/05/23 05:06 Temperature 97.7 F Temperature Source Oral Pulse Rate 75 Respiratory Rate 20 Blood Pressure 138/69 Blood Pressure Mean 92 Blood Pressure Location Left Arm Blood Pressure Position Supine O2 Sat by Pulse Oximetry 92 L 94 L Oxygen Delivery Method Vapo Therm Oxygen Flow Rate 30 Fraction of Inspired Oxygen (FIO2) 30 35 Telemetry Type Remote Telemetry Telemetry Monitoring Continues Telemetry Heart Rate 74 Telemetry SPO2 95 EKG LA Interval 0.17 EKG QRS Interval 0.04 L Telemetry Strip Reading SR 10/05/23 06:00 10/05/23 06:00 10/05/23 07:00 Temperature Temperature Source Pulse Rate Respiratory Rate Blood Pressure Blood Pressure Mean Blood Pressure Location Blood Pressure Position O2 Sat by Pulse Oximetry 92 L 92 L Oxygen Delivery Method Vapo Therm Oxygen Flow Rate 30 Fraction of Inspired Oxygen (FIO2) 30 Telemetry Type Remote Telemetry Telemetry Monitoring Continues Telemetry Heart Rate 76 Telemetry SPO2 92 L EKG LA Interval 0.16 EKG QRS Interval 0.08 Telemetry Strip Reading NSR 10/05/23 08:04 10/05/23 08:05 Temperature Temperature Source Pulse Rate Respiratory Rate Blood Pressure Blood Pressure Mean Blood Pressure Location Blood Pressure Position O2 Sat by Pulse Oximetry 94 L 96 Oxygen Delivery Method Nasal Cannula Oxygen Flow Rate 5 Fraction of Inspired Oxygen (FIO2) 35 Telemetry Type Telemetry Monitoring Telemetry Heart Rate Telemetry SPO2 EKG LA Interval EKG QRS Interval Telemetry Strip Reading Lab Results Lab Results: Lab Results: Last 24 Hours 10/05/23 04:53 WBC 11.68 H RBC 4.56 Hgb 13.2 Hct 42.2 MCV 92.5 MCH 28.9 MCHC 31.3 L RDW Coeff of Serenity 13.6 Plt Count 189 Immature Gran % (Auto) 0.6 Neut % (Auto) 90.2 H Lymph % (Auto) 3.1 L [place] % (Auto) 6.1 Eos % (Auto) 0.0 Baso % (Auto) 0.0 Neut # (Auto) 10.5 H Lymph # (Auto) 0.4 L [place] # (Auto) 0.7 Eos # (Auto) 0.0 Baso # (Auto) 0.0 Immature Gran # (Auto) 0.1 Sodium 136.0 Potassium 4.24 Chloride 101.4 Carbon Dioxide 32.8 H Anion Gap 6.04 BUN 20.8 H Creatinine 0.56 L Estimated GFR (MDRD) 104.00 BUN/Creatinine Ratio 37.14 Glucose 132.8 H Calcium 9.46 Total Bilirubin 0.51 AST 42.3 H ALT 24.6 Alkaline Phosphatase 54.3 Total Protein 6.46 Albumin 3.74 Globulin 2.72 Albumin/Globulin Ratio 1.37 Additional Comments Additional Comments: I have independently reviewed and interpreted the labs/EKGs/imaging ordered during this hospital stay. I have reviewed outside records that are available in our EMR that pertain to medical stay including imaging/notes/labs from previous visits. Active Medications Active Medications: Medications Generic Name Dose Route Start Last Admin Trade Name Freq PRN Reason Stop Dose Admin Acetaminophen 650 mg 10/02/23 21:47 Acetaminophen 325 Mg Tablet PO Q4H PRN Mild Pain Albuterol Sulfate 2.5 mg 10/02/23 21:47 10/04/23 02:43 Albuterol Sulfate 0.083% Vial.Neb NEB 2.5 mg RTQ4H PRN Administration Wheezing Albuterol/Ipratropium 3 ml 10/02/23 22:00 10/05/23 05:21 Ipratropium/Albuterol Vial.Neb NEB 3 ml RTQ4H SWATI Administration Budesonide 2 mg 10/03/23 18:00 10/05/23 05:28 Budesonide 1 Mg/2 Ml Vial.Neb NEB 2 mg RTQ6H SWATI Administration Enoxaparin Sodium 40 mg 10/04/23 10:40 10/05/23 08:43 Enoxaparin Sodium 40 Mg/0.4 Ml Syr SUBCUT 40 mg DAILY SWATI Administration CEFTRIAXONE/D5W 1 GM PREMIX 1 gm in 50 mls @ 100 mls/hr 10/02/23 22:00 10/05/23 08:44 Rocephin 1 Gm/50 Ml D5w IV 10/05/23 21:59 100 mls/hr DAILY SWATI Administration Methylprednisolone Sodium Succinate 40 mg 10/03/23 05:00 10/05/23 05:07 Methylprednisolone Sod Succ/Pf 40 Mg/Ml Vial IVP 40 mg Q8HR SWATI Administration Ondansetron HCl 4 mg 10/02/23 21:47 Ondansetron Hcl/Pf 4 Mg/2 Ml Sdv IVP Q6H PRN Nausea / Vomiting Sodium Chloride 1 syr 10/04/23 21:00 10/05/23 05:07 0.9% Sodium Chloride 10 Ml Disp.Syrin IVF 1 syr Q8HR SWATI Administration Plan Plan: 1. Acute COPD Exacerbation - Transitioned off vapotherm to 5L NC. Goal to get back to her 3L at baseline, Cont rocephin, azith, steroids, nebs. 2. Acute hypoxic respiratory failure - Improving, off vapotherm. Plan as above. Wean to home O2 requirement when able. 3. Persistent LLL pneumonia, community acquired - Cont abx 4. Hypertension - chronic, continue home medications 5. Dyslipidemia - chronic, continue home medications 6. Increasing ascending thoracic aortic aneurysm measuring 6.4 x 6.1 cm - Discussed with patient, advised f/u outpatient, she declines. 7. New 10 mm right apex nodule - Discussed outpatient f/u. 8. Thyroid nodules - Outpt f/u Dispo: Possible dc tomorrow. DVT: Lovenox Review Statement Review Statement: I have personally discussed and reviewed the patient's visit/currently l abs/imaging/decision making with Dr. Burgess, my supervising attending. Greater that 50 minutes spent with patient, 50% of the time spent with this patient was devoted to counseling and coordination of care.
[2023-10-05] MEDS ORDERED: ATIVAN PO ONE (21:47)
[2023-10-05] MEDS: ALBUTEROL 0.083% NEB NEB PRN (23:35)
[2023-10-06] MEDS: DUONEB NEB SCH ×6 (01:57→21:24)
[2023-10-06] MEDS: SOLU-MEDROL 40 MG IVP SCH ×3 (05:11→20:55)
[2023-10-06 05:23] LABS: BASOPHILS % (AUTO) 0.2 % (0.0-3.0); HEMATOCRIT 43.9 % (37.0-47.0); HEMOGLOBIN 13.8 g/dl (12.0-16.0); IMMATURE GRANULOCYTE # (AUTO) 0.1 (0.0-1.0); IMMATURE GRANULOCYTE % (AUTO) 0.8 % (0.0-5.0); LYMPHOCYTES # (AUTO) 0.4 K/uL (0.60-3.4); LYMPHOCYTES % (AUTO) 3.1 (10.0-50.0); MEAN CORPUSCULAR HEMOGLOBIN 29.1 pg (27.0-31.0); MEAN CORPUSCULAR HGB CONC 31.4 (31.8-35.4); MEAN CORPUSCULAR VOLUME 92.6 fl (81.0-99.0); MONOCYTES # (AUTO) 1.2 K/uL (0.4-2.0); MONOCYTES % (AUTO) 9.5 (0-10); NEUTROPHILS % (AUTO) 86.4 % (42.2-75.2); PLATELET COUNT 198 10^3/uL (140-440); RDW COEFFICIENT OF VARIATION 13.6 % (11.6-14.8); RED BLOOD COUNT 4.74 10^6/ul (4.20-5.40); WHITE BLOOD COUNT 12.66 K/ul (4.6-10.2)
[2023-10-06 05:39] LABS: ALANINE AMINOTRANSFERASE 31.4 U/L (0-35); ALBUMIN 3.82 g/dL (3.5-5.0); ALKALINE PHOSPHATASE 51.5 U/L (53-141); ASPARTATE AMINO TRANSFERASE 48.3 U/L (14-36); BILIRUBIN,TOTAL 0.58 mg/dL (0.2-1.3); BLOOD UREA NITROGEN 19.2 mg/dL (7-17); CALCIUM 9.61 mg/dL (8.4-10.2); CARBON DIOXIDE 33.7 mmol/L (22-30.0); CHLORIDE 100.1 mmol/L (98-107); CREATININE 0.56 mg/dL (0.60-1.30); GLUCOSE 136.9 mg/dL (74-106); POTASSIUM 4.13 mmol/L (3.5-5.1); TOTAL PROTEIN 6.59 g/dL (6.3-8.2)
[2023-10-06] MEDS: ROCEPHIN 1 GM/50 ML D5W 1 GM/50 ML BAG IV SCH (08:45)
[2023-10-06] MEDS: LOVENOX SUBCUT SCH (08:45)
[2023-10-06] MEDS ORDERED: ZITHROMAX PO ONE (10:21)
--- NOTE | 2023-10-06 10:25 | DCSUM ---
Hospital Provider Hospital Provider: ALICE ROBLERO PA-C, [facility] (Formerly [facility])[3]ist Group Primary Care Physician Primary Care Physician: CELI HIDALGO MD Hospital Course Vital Signs: Most Recent Vital Signs Temperature 97.7 F 10/06/23 04:59 Temperature Source Oral 10/06/23 04:59 Temperature Source Infrared 10/02/23 17:59 Pulse Rate 89 10/06/23 04:59 Respiratory Rate 16 10/06/23 04:59 Blood Pressure 129/77 10/06/23 04:59 Blood Pressure Mean 94 10/06/23 04:59 Blood Pressure Right Arm 152/62 10/02/23 22:30 Blood Pressure Location Right Arm 10/06/23 04:59 Blood Pressure Position Supine 10/06/23 04:59 O2 Sat by Pulse Oximetry 95 10/06/23 04:59 Oxygen Delivery Method Nasal Cannula 10/06/23 08:00 Oxygen Flow Rate 3 10/06/23 08:00 Fraction of Inspired Oxygen (FIO2) 35 10/05/23 08:04 Height 5 ft 3 in 10/02/23 22:30 Weight 112 lb 10/02/23 22:30 Telemetry Type Remote Telemetry 10/06/23 07:00 Telemetry Monitoring Continues 10/06/23 07:00 Telemetry Heart Rate 86 10/06/23 07:00 Telemetry SPO2 96 10/06/23 07:00 EKG TX Interval 0.15 10/06/23 07:00 EKG QRS Interval 0.05 L 10/06/23 07:00 Telemetry Strip Reading SR 10/06/23 07:00 Lab Results Last 24 Hours: 10/06/23 05:08 WBC 12.66 H RBC 4.74 Hgb 13.8 Hct 43.9 MCV 92.6 MCH 29.1 MCHC 31.4 L RDW Coeff of Serenity 13.6 Plt Count 198 Immature Gran % (Auto) 0.8 Neut % (Auto) 86.4 H Lymph % (Auto) 3.1 L Green % (Auto) 9.5 Eos % (Auto) 0.0 Baso % (Auto) 0.2 Neut # (Auto) 11.0 H Lymph # (Auto) 0.4 L Green # (Auto) 1.2 Eos # (Auto) 0.0 Baso # (Auto) 0.0 Immature Gran # (Auto) 0.1 Sodium 137.0 Potassium 4.13 Chloride 100.1 Carbon Dioxide 33.7 H Anion Gap 7.33 BUN 19.2 H Creatinine 0.56 L Estimated GFR (MDRD) 104.00 BUN/Creatinine Ratio 34.28 Glucose 136.9 H Calcium 9.61 Total Bilirubin 0.58 AST 48.3 H ALT 31.4 Alkaline Phosphatase 51.5 L Total Protein 6.59 Albumin 3.82 Globulin 2.77 Albumin/Globulin Ratio 1.37 Discharge Instructions Discharge Planning: Discharge Planning > 40 minutes If patient is discharged with left ventricular systolic dysfunction: Discharged with a beta awais? [] If no, why not? [] Discharged with an scar/arb? [] If no, why not? [] Discharge Medications: Medications at Discharge (Home Meds & RX) aspirin 81 mg chewable tablet 81 mg PO PRN PRN pain 05/10/15 atenolol 50 mg tablet See Rx Instructions .Route .COMPLEX #90 tabs 09/09/23 losartan 100 mg tablet See Rx Instructions .Route .COMPLEX #90 tabs 09/09/23 albuterol sulfate 90 mcg/actuation aerosol inhaler See Rx Instructions .Route .COMPLEX #18 grams 10/03/23 azithromycin 250 mg tablet See Rx Instructions PO .COMPLEX #6 tabs 10/03/23 ipratropium 0.5 mg-albuterol 3 mg (2.5 mg base)/3 mL nebulization soln 3 ml NEB RTQ4H #90 mL 10/03/23 methylprednisolone 4 mg tablets in a dose pack (Medrol (Rod)) See Rx Instructions PO .COMPLEX #21 ea 10/03/23 Discharge Plan Discharge Discharge Orders: Discharge Patient (ONCE); Ordered 10/06/23 Ordered By: ALICE ROBLERO Activity Restrictions/Additional Instructions: Discharge home Cardiac diet Activity as tolerated Follow-up with PCP next week Medications: You do not need to take the Z rod (azithromycin) that was initially prescribed to you Wednesday, you have completed that here. Do take: Medrol dose rod Cefdinir (antibiotic) Иван Hylton (cough medicine) Take only 1/2 tablet each of your atenolol and losartan. Instructions: How to Stop Smoking (DC), COPD (Chronic Obstructive Pulmonary Disease) (GEN) Patient Disposition: HOME SELF-CARE Prescriptions: New ipratropium-albuterol 0.5 mg-3 mg(2.5 mg base)/3 mL Solution For Nebulization 3 ml NEB RTQ4H Qty: 90 0RF methylprednisolone [Medrol (Rod)] 4 mg tablets,dose pack See Rx Instructions .ROUTE .COMPLEX Qty: 21 0RF Rx Instructions: orally per package directions benzonatate 100 mg capsule 100 mg PO BID-TID PRN (Reason: cough) Qty: 30 0RF cefdinir 300 mg capsule 300 mg PO BID 3 Days Qty: 6 0RF Rx Instructions: starting 10/07/23 Continued aspirin 81 MG tablet,chewable 81 mg PO PRN PRN (Reason: pain) albuterol sulfate 90 mcg/actuation HFA aerosol inhaler See Rx Instructions .ROUTE .COMPLEX Qty: 18 1RF Dose Instruction: INHALE 2 PUFFS INTO THE LUNGS EVERY 4 TO 6 HOURS NEEDED FOR SHORTNESS OF BREATH OR WHEEZING Rx Instructions: INHALE 2 PUFFS INTO THE LUNGS EVERY 4 TO 6 HOURS NEEDED FOR SHORTNESS OF BREATH OR WHEEZING Changed losartan 100 mg tablet See Rx Instructions .ROUTE .COMPLEX Qty: 90 1RF Dose Instruction: TAKE 1 TABLET BY MOUTH DAILY Rx Instructions: TAKE 1/2 TABLET BY MOUTH DAILY atenolol 50 mg tablet See Rx Instructions .ROUTE .COMPLEX Qty: 90 1RF Dose Instruction: TAKE 1 TABLET BY MOUTH DAILY Rx Instructions: TAKE 1/2 TABLET BY MOUTH DAILY Did you review [place] TOUCH [employer] for ALL controlled substances?: No Discussed opioids are addictive and Narcan is available by prescription or from pharmacy.: No Condition: Stable Referrals: CELI HIDALGO MD [Primary Care Provider] - 10/13/23 1:20 pm
[2023-10-06] MEDS ORDERED: ATIVAN PO PRN (15:28)
--- NOTE | 2023-10-06 15:33 | PCM.PROG ---
Date/Time Seen Date Seen by Provider: 10/06/23 Time Seen by Provider: 08:20 Provider [facility] Chief Complaint Chief Complaint: COPD WITH EXACERBATION Subjective Subjective: Patient feeling better today, hoping to go home. Plan was to discharge home per her wishes however with just standing to try to put her clothes on she became hypoxic into the 70s, tachycardic 120/130s, tripoding, very sob. She is continuing to have episodes such as this about once a day, happens usually with exertion. She recovers slowly with nebulizer treatment and rest. Objective Appearance: Positive No Apparent Distress and Alert and Oriented x3 Chest/Lungs: Positive Clear to Auscultation Bilaterally and Wheezes (mild, improved ); Negative Rales or Rhonci Heart: Positive RRR GI/: Positive Soft, Nontender and Bowel Sounds Normal Neurological: Positive Cranial Nerves Intact, Alert and Other (+generalized weakness ) Vital Signs Vital Signs: Vital Signs: Last 24 Hours 10/05/23 19:00 10/05/23 19:25 10/05/23 20:00 Temperature Temperature Source Pulse Rate Respiratory Rate 20 Blood Pressure Blood Pressure Mean Blood Pressure Location Blood Pressure Position O2 Sat by Pulse Oximetry 93 L Oxygen Delivery Method Nasal Cannula Nasal Cannula Oxygen Flow Rate 4 4 Telemetry Type Remote Telemetry Telemetry Monitoring Continues Telemetry Heart Rate 101 H Telemetry SPO2 90 L EKG [place] Interval 0.19 EKG QRS Interval 0.04 L Telemetry Strip Reading ST 10/05/23 22:00 10/06/23 01:00 10/06/23 04:42 Temperature 97.5 F L Temperature Source Temporal Artery Scan Pulse Rate 107 H Respiratory Rate 22 H Blood Pressure 142/84 H Blood Pressure Mean 103 Blood Pressure Location Right Arm Blood Pressure Position Supine O2 Sat by Pulse Oximetry 88 L 96 Oxygen Delivery Method Nasal Cannula Nasal Cannula Oxygen Flow Rate 5 4 Telemetry Type Remote Telemetry Telemetry Monitoring Continues Telemetry Heart Rate 104 H Telemetry SPO2 94 EKG [place] Interval 0.15 EKG QRS Interval 0.[address] 10/06/23 04:59 10/06/23 07:00 10/06/23 08:00 Temperature 97.7 F Temperature Source Oral Pulse Rate 89 Respiratory Rate 16 Blood Pressure 129/77 Blood Pressure Mean 94 Blood Pressure Location Right Arm Blood Pressure Position Supine O2 Sat by Pulse Oximetry 95 Oxygen Delivery Method Nasal Cannula Nasal Cannula Oxygen Flow Rate 4 3 Telemetry Type Remote Telemetry Telemetry Monitoring Continues Telemetry Heart Rate 86 Telemetry SPO2 96 EKG [place] Interval 0.15 EKG QRS Interval 0.05 L Telemetry Strip Reading SR 10/06/23 10:00 10/06/23 12:58 10/06/23 14:00 Temperature 98.3 F Temperature Source Temporal Artery Scan Pulse Rate 103 H Respiratory Rate 24 H Blood Pressure 118/70 Blood Pressure Mean 86 Blood Pressure Location Right Arm Blood Pressure Position O2 Sat by Pulse Oximetry 78 L 92 L Oxygen Delivery Method Nasal Cannula Nasal Cannula Oxygen Flow Rate 3 4 Telemetry Type Remote Telemetry Telemetry Monitoring Continues Telemetry Heart Rate 112 H Telemetry SPO2 91 L EKG [place] Interval 0.15 EKG QRS Interval 0.[address] Lab Results Lab Results: Lab Results: Last 24 Hours 10/06/23 05:08 WBC 12.66 H RBC 4.74 Hgb 13.8 Hct 43.9 MCV 92.6 MCH 29.1 MCHC 31.4 L RDW Coeff of Serenity 13.6 Plt Count 198 Immature Gran % (Auto) 0.8 Neut % (Auto) 86.4 H Lymph % (Auto) 3.1 L Kem[place] % (Auto) 9.5 Eos % (Auto) 0.0 Baso % (Auto) 0.2 Neut # (Auto) 11.0 H Lymph # (Auto) 0.4 L Kem[place] # (Auto) 1.2 Eos # (Auto) 0.0 Baso # (Auto) 0.0 Immature Gran # (Auto) 0.1 Sodium 137.0 Potassium 4.13 Chloride 100.1 Carbon Dioxide 33.7 H Anion Gap 7.33 BUN 19.2 H Creatinine 0.56 L Estimated GFR (MDRD) 104.00 BUN/Creatinine Ratio 34.28 Glucose 136.9 H Calcium 9.61 Total Bilirubin 0.58 AST 48.3 H ALT 31.4 Alkaline Phosphatase 51.5 L Total Protein 6.59 Albumin 3.82 Globulin 2.77 Albumin/Globulin Ratio 1.37 Additional Comments Additional Comments: I have independently reviewed and interpreted the labs/EKGs/imaging ordered during this hospital stay. I have reviewed outside records that are available in our EMR that pertain to medical stay including imaging/notes/labs from previous visits. Active Medications Active Medications: Medications Generic Name Dose Route Start Last Admin Trade Name Freq PRN Reason Stop Dose Admin Acetaminophen 650 mg 10/02/23 21:47 Acetaminophen 325 Mg Tablet PO Q4H PRN Mild Pain Albuterol Sulfate 2.5 mg 10/02/23 21:47 10/05/23 23:35 Albuterol Sulfate 0.083% Vial.Neb NEB 2.5 mg RTQ4H PRN Administration Wheezing Albuterol/Ipratropium 3 ml 10/02/23 22:00 10/06/23 14:34 Ipratropium/Albuterol Vial.Neb NEB 3 ml RTQ4H SWATI Administration Enoxaparin Sodium 40 mg 10/04/23 10:40 10/06/23 08:45 Enoxaparin Sodium 40 Mg/0.4 Ml Syr SUBCUT 40 mg DAILY SWATI Administration CEFTRIAXONE/D5W 1 GM PREMIX 1 gm in 50 mls @ 100 mls/hr 10/02/23 22:00 10/06/23 08:45 Rocephin 1 Gm/50 Ml D5w IV 10/06/23 21:59 100 mls/hr DAILY SWATI Administration Lorazepam 0.5 mg 10/06/23 15:28 Lorazepam 0.5 Mg Tablet PO DAILY PRN Anxiety Methylprednisolone Sodium Succinate 40 mg 10/03/23 05:00 10/06/23 13:17 Methylprednisolone Sod Succ/Pf 40 Mg/Ml Vial IVP 40 mg Q8HR SWATI Administration Ondansetron HCl 4 mg 10/02/23 21:47 Ondansetron Hcl/Pf 4 Mg/2 Ml Sdv IVP Q6H PRN Nausea / Vomiting Sodium Chloride 1 syr 10/04/23 21:00 10/06/23 13:17 0.9% Sodium Chloride 10 Ml Disp.Syrin IVF 1 syr Q8HR SWATI Administration Plan Plan: 1. Acute COPD Exacerbation - Transitioned off vapotherm to 5L NC. Goal to get back to her 3L at baseline, Cont rocephin, steroids, nebs. Azith completed today. 2. Acute hypoxic respiratory failure - Worse with exertion. Plan as above. Wean to home O2 requirement when able. 3. Persistent LLL pneumonia, community acquired - Cont abx 4. Hypertension - chronic, continue home medications 5. Dyslipidemia - chronic, continue home medications 6. Increasing ascending thoracic aortic aneurysm measuring 6.4 x 6.1 cm - Discussed with patient, advised f/u outpatient, she declines. 7. New 10 mm right apex nodule - Discussed outpatient f/u. 8. Thyroid nodules - Outpt f/u Dispo: Discussed with patient transferring to higher acuity facility for pulmonology consult, as she continues to have these episodes of hypoxia/tachycardia with any exertion. She spoke with her son and . She initially agreed to transfer but then changed her mind. She does not want to undergo further work up for her COPD, pneumonia, pulmonary nodule, etc. She ultimately wants to go home. She also doesn't want to return to the ER or be hospitalized once she is home, but she's worried about suffering through these episodes at home with only her . We discussed the option of hospice care. She and her family are agreeable. [facility] consulted with her and her family. They are able to have equipment into her home by Wednesday. Plan to monitor/treat her until then and dc Wednesday once her home is ready and she has the extra support she needs. We will continue our treatment plan until that time. Review Statement Review Statement: I have personally discussed and reviewed the patient's visit/currently labs/imaging/decision making with Dr. Burgess, my supervising attending. Greater that 50 minutes spent with patient, 50% of the time spent with this patient was devoted to counseling and coordination of care.
[2023-10-06] MEDS: ALBUTEROL 0.083% NEB NEB PRN (23:00)
[2023-10-07] MEDS: DUONEB NEB SCH ×6 (02:36→22:45)
[2023-10-07] MEDS: ALBUTEROL 0.083% NEB NEB PRN (03:21)
[2023-10-07] MEDS: SOLU-MEDROL 40 MG IVP SCH ×3 (05:37→20:36)
[2023-10-07] MEDS: ROCEPHIN 1 GM/50 ML D5W 1 GM/50 ML BAG IV SCH (08:24)
[2023-10-07] MEDS: LOVENOX SUBCUT SCH (08:31)
--- NOTE | 2023-10-07 10:46 | PCM.PROG ---
Date/Time Seen Date Seen by Provider: 10/07/23 Time Seen by Provider: 08:20 Provider Provider: ALICE ROBLERO PA-C, [facility] Chief Complaint Chief Complaint: COPD WITH EXACERBATION Subjective Subjective: Patient states she's feeling well this morning. She is somewhat fearful to exert herself to get to bsc, etc, because she worried about having an episode of sob. She is at peace with her decision to go home on hospice and is looking forward to going home with that extra layer of support. Objective Appearance: Positive No Apparent Distress and Alert and Oriented x3 Chest/Lungs: Positive Clear to Auscultation Bilaterally; Negative Rales, Rhonci or Wheezes Heart: Positive RRR GI/: Positive Soft, Nontender and Bowel Sounds Normal Neurological: Positive Cranial Nerves Intact, Alert and Other (+generalized weakness ) Vital Signs Vital Signs: Vital Signs: Last 24 Hours 10/06/23 12:58 10/06/23 14:00 10/06/23 14:00 Temperature 98.3 F Temperature Source Temporal Artery Scan Pulse Rate 103 H Respiratory Rate 24 H Blood Pressure 118/70 Blood Pressure Mean 86 Blood Pressure Location Right Arm Blood Pressure Position O2 Sat by Pulse Oximetry 92 L 93 L Oxygen Delivery Method Nasal Cannula Nasal Cannula Oxygen Flow Rate 4 4 Height Weight Telemetry Type Remote Telemetry Telemetry Monitoring Continues Telemetry Heart Rate 112 H Telemetry SPO2 91 L EKG [place] Interval 0.15 EKG QRS Interval 0.[address] 10/06/23 18:13 10/06/23 19:00 10/06/23 20:00 Temperature Temperature Source Pulse Rate Respiratory Rate 22 H Blood Pressure Blood Pressure Mean Blood Pressure Location Blood Pressure Position O2 Sat by Pulse Oximetry 94 L Oxygen Delivery Method Nasal Cannula Nasal Cannula Oxygen Flow Rate 3 3 Height Weight Telemetry Type Remote Telemetry Telemetry Monitoring Continues Telemetry Heart Rate 104 H Telemetry SPO2 88 L EKG [place] Interval 0.12 EKG QRS Interval 0.[address] 10/06/23 20:00 10/06/23 22:00 10/07/23 01:00 Temperature 97.7 F Temperature Source Temporal Artery Scan Pulse Rate 97 Respiratory Rate 16 Blood Pressure 139/80 Blood Pressure Mean 99 Blood Pressure Location Left Arm Blood Pressure Position Supine O2 Sat by Pulse Oximetry 92 L 92 L Oxygen Delivery Method Nasal Cannula Nasal Cannula Oxygen Flow Rate 4 4 Height Weight Telemetry Type Remote Telemetry Telemetry Monitoring Continues Telemetry Heart Rate 87 Telemetry SPO2 96 EKG [place] Interval 0.15 EKG QRS Interval 0.07 Telemetry Strip Reading SR 10/07/23 05:43 10/07/23 06:00 10/07/23 07:00 Temperature 98.2 F Temperature Source Temporal Artery Scan Pulse Rate 97 Respiratory Rate 18 Blood Pressure 129/84 Blood Pressure Mean 99 Blood Pressure Location Left Arm Blood Pressure Position Supine O2 Sat by Pulse Oximetry 92 L 94 L Oxygen Delivery Method Nasal Cannula Nasal Cannula Oxygen Flow Rate 4 4 Height Weight Telemetry Type Remote Telemetry Telemetry Monitoring Continues Telemetry Heart Rate 85 Telemetry SPO2 95 EKG [place] Interval 0.12 EKG QRS Interval 0.04 L Telemetry Strip Reading SR 10/07/23 10:00 10/07/23 10:29 Temperature Temperature Source Pulse Rate Respiratory Rate Blood Pressure Blood Pressure Mean Blood Pressure Location Blood Pressure Position O2 Sat by Pulse Oximetry 94 L Oxygen Delivery Method Nasal Cannula Oxygen Flow Rate 4 Height 5 ft 3 in Weight 112 lb Telemetry Type Telemetry Monitoring Telemetry Heart Rate Telemetry SPO2 EKG [place] Interval EKG QRS Interval Telemetry Strip Reading Lab Results Lab Results: Lab Results: Last 24 Hours 10/06/23 05:08 WBC 12.66 H RBC 4.74 Hgb 13.8 Hct 43.9 MCV 92.6 MCH 29.1 MCHC 31.4 L RDW Coeff of Serenity 13.6 Plt Count 198 Immature Gran % (Auto) 0.8 Neut % (Auto) 86.4 H Lymph % (Auto) 3.1 L Floyd % (Auto) 9.5 Eos % (Auto) 0.0 Baso % (Auto) 0.2 Neut # (Auto) 11.0 H Lymph # (Auto) 0.4 L Floyd # (Auto) 1.2 Eos # (Auto) 0.0 Baso # (Auto) 0.0 Immature Gran # (Auto) 0.1 Sodium 137.0 Potassium 4.13 Chloride 100.1 Carbon Dioxide 33.7 H Anion Gap 7.33 BUN 19.2 H Creatinine 0.56 L Estimated GFR (MDRD) 104.00 BUN/Creatinine Ratio 34.28 Glucose 136.9 H Calcium 9.61 Total Bilirubin 0.58 AST 48.3 H ALT 31.4 Alkaline Phosphatase 51.5 L Total Protein 6.59 Albumin 3.82 Globulin 2.77 Albumin/Globulin Ratio 1.37 Additional Comments Additional Comments: I have independently reviewed and interpreted the labs/EKGs/imaging ordered during this hospital stay. I have reviewed outside records that are available in our EMR that pertain to medical stay including imaging/notes/labs from previous visits. Active Medications Active Medications: Medications Generic Name Dose Route Start Last Admin Trade Name Freq PRN Reason Stop Dose Admin Acetaminophen 650 mg 10/02/23 21:47 Acetaminophen 325 Mg Tablet PO Q4H PRN Mild Pain Albuterol Sulfate 2.5 mg 10/02/23 21:47 10/07/23 03:21 Albuterol Sulfate 0.083% Vial.Neb NEB 2.5 mg RTQ4H PRN Administration Wheezing Albuterol/Ipratropium 3 ml 10/02/23 22:00 10/07/23 09:46 Ipratropium/Albuterol Vial.Neb NEB 3 ml RTQ4H SWATI Administration Enoxaparin Sodium 40 mg 10/04/23 10:40 10/07/23 08:31 Enoxaparin Sodium 40 Mg/0.4 Ml Syr SUBCUT 40 mg DAILY SWATI Administration CEFTRIAXONE/D5W 1 GM PREMIX 1 gm in 50 mls @ 100 mls/hr 10/02/23 22:00 10/07/23 08:24 Rocephin 1 Gm/50 Ml D5w IV 10/07/23 21:59 100 mls/hr DAILY SWATI Administration Lorazepam 0.5 mg 10/06/23 15:28 Lorazepam 0.5 Mg Tablet PO DAILY PRN Anxiety Methylprednisolone Sodium Succinate 40 mg 10/03/23 05:00 10/07/23 05:37 Methylprednisolone Sod Succ/Pf 40 Mg/Ml Vial IVP 40 mg Q8HR SWATI Administration Ondansetron HCl 4 mg 10/02/23 21:47 Ondansetron Hcl/Pf 4 Mg/2 Ml Sdv IVP Q6H PRN Nausea / Vomiting Sodium Chloride 1 syr 10/04/23 21:00 10/07/23 05:37 0.9% Sodium Chloride 10 Ml Disp.Syrin IVF 1 syr Q8HR SWATI Administration Plan Plan: 1. Acute COPD Exacerbation - Back to her 3L at baseline except when having a sob episode, Cont rocephin, steroids, nebsTalia Barahona completed 10/06. 2. Acute hypoxic respiratory failure - Worse with exertion. Plan as above. 3. Persistent LLL pneumonia, community acquired - Cont abx 4. Hypertension - chronic, continue home medications 5. Dyslipidemia - chronic, continue home medications 6. Increasing ascending thoracic aortic aneurysm measuring 6.4 x 6.1 cm - Discussed with patient, advised f/u outpatient, she declines. 7. New 10 mm right apex nodule - Discussed outpatient f/u. 8. Thyroid nodules - Outpt f/u Dispo: 10/06 Discussed with patient transferring to higher acuity facility for pulmonology consult, as she continues to have these episodes of hypoxia/tachycardia with any exertion. She spoke with her son and . She initially agreed to transfer but then changed her mind. She does not want to undergo further work up for her COPD, pneumonia, pulmonary nodule, etc. She ultimately wants to go home. She also doesn't want to return to the ER or be hospitalized once she is home, but she's worried about suffering through these episodes at home with only her . We discussed the option of hospice care. She and her family are agreeable. [facility] of [facility] consulted with her and her family. They are able to have equipment into her home by Wednesday. Plan to monitor/treat her until then and dc Wednesday once her home is ready and she has the extra support she needs. We will continue our treatment plan until that time. 10/07 Plan is still to keep patient until her required DME is available to her at home and hospice can be present for her. Plan is dc on Wednesday. Review Statement Review Statement: I have personally discussed and reviewed the patient's visit/currently labs/imaging/decision making with Dr. Burgess, my supervising attending. Greater that 50 minutes spent with patient, 50% of the time spent with this patient was devoted to counseling and coordination of care.
[2023-10-08] MEDS: DUONEB NEB SCH ×6 (01:33→21:21)
[2023-10-08] MEDS: SOLU-MEDROL 40 MG IVP SCH ×3 (05:19→21:08)
[2023-10-08 05:28] LABS: BASOPHILS % (AUTO) 0.1 % (0.0-3.0); HEMATOCRIT 47.2 % (37.0-47.0); HEMOGLOBIN 14.9 g/dl (12.0-16.0); IMMATURE GRANULOCYTE # (AUTO) 0.1 (0.0-1.0); LYMPHOCYTES # (AUTO) 0.3 K/uL (0.60-3.4); MEAN CORPUSCULAR HEMOGLOBIN 29.2 pg (27.0-31.0); MEAN CORPUSCULAR HGB CONC 31.6 (31.8-35.4); MEAN CORPUSCULAR VOLUME 92.4 fl (81.0-99.0); MONOCYTES # (AUTO) 0.8 K/uL (0.4-2.0); MONOCYTES % (AUTO) 7.4 (0-10); NEUTROPHILS # (AUTO) 9.3 K/ul (2.0-6.9); NEUTROPHILS % (AUTO) 88.5 % (42.2-75.2); PLATELET COUNT 198 10^3/uL (140-440); RDW COEFFICIENT OF VARIATION 13.3 % (11.6-14.8); RED BLOOD COUNT 5.11 10^6/ul (4.20-5.40); WHITE BLOOD COUNT 10.47 K/ul (4.6-10.2)
[2023-10-08 05:45] LABS: BLOOD UREA NITROGEN 26.8 mg/dL (7-17); CALCIUM 9.53 mg/dL (8.4-10.2); CARBON DIOXIDE 33.2 mmol/L (22-30.0); CHLORIDE 98.9 mmol/L (98-107); CREATININE 0.51 mg/dL (0.60-1.30); GLUCOSE 134.1 mg/dL (74-106); POTASSIUM 4.46 mmol/L (3.5-5.1); SODIUM 134.7 mmol/L (134.5-145)
[2023-10-08] MEDS: OMNICEF PO SCH ×2 (08:45→20:32)
[2023-10-08] MEDS: LOVENOX SUBCUT SCH (08:47)
[2023-10-08] MEDS ORDERED: DULCOLAX PO ONE (08:47)
--- NOTE | 2023-10-08 10:47 | PCM.PROG ---
Date/Time Seen Date Seen by Provider: 10/08/23 Time Seen by Provider: 08:30 Provider Provider: [facility] Chief Complaint Chief Complaint: COPD WITH EXACERBATION Subjective Subjective: Patient states they are setting her home up for hospice. She is looking forward to going home. She had another episode of hypoxia/tachycardia last night. States the PO ativan seems to help but it knocks her out, would like a smaller dose. Objective Appearance: Positive No Apparent Distress and Alert and Oriented x3 Chest/Lungs: Positive Clear to Auscultation Bilaterally; Negative Rales, Rhonci or Wheezes Heart: Positive RRR GI/: Positive Soft, Nontender and Bowel Sounds Normal Neurological: Positive Cranial Nerves Intact, Alert and Other (+generalized weakness ) Vital Signs Vital Signs: Vital Signs: Last 24 Hours 10/07/23 13:00 10/07/23 14:00 10/07/23 14:00 Temperature 97.4 F L Temperature Source Temporal Artery Scan Pulse Rate 98 Respiratory Rate 24 H Blood Pressure 134/75 Blood Pressure Mean 94 Blood Pressure Location Right Arm Blood Pressure Position O2 Sat by Pulse Oximetry 93 L 93 L Oxygen Delivery Method Nasal Cannula Nasal Cannula Oxygen Flow Rate 4 4 Telemetry Type Remote Telemetry Telemetry Monitoring Continues Telemetry Heart Rate 89 Telemetry SPO2 93 EKG DE Interval 0.1 L EKG QRS Interval 0.04 L Telemetry Strip Reading SR 10/07/23 19:00 10/07/23 20:00 10/07/23 20:00 Temperature Temperature Source Pulse Rate Respiratory Rate 19 Blood Pressure Blood Pressure Mean Blood Pressure Location Blood Pressure Position O2 Sat by Pulse Oximetry 94 L Oxygen Delivery Method Nasal Cannula Nasal Cannula Oxygen Flow Rate 4 3 Telemetry Type Remote Telemetry Telemetry Monitoring Continues Telemetry Heart Rate 100 Telemetry SPO2 92 L EKG DE Interval 0.13 EKG QRS Interval 0.03 L Telemetry Strip Reading SR 10/07/23 21:26 10/08/23 01:00 10/08/23 04:55 Temperature 97.9 F Temperature Source Temporal Artery Scan Pulse Rate 92 Respiratory Rate 22 H Blood Pressure 136/72 Blood Pressure Mean 93 Blood Pressure Location Left Arm Blood Pressure Position Supine O2 Sat by Pulse Oximetry 89 L 92 L Oxygen Delivery Method Nasal Cannula Nasal Cannula Oxygen Flow Rate 4 4 Telemetry Type Remote Telemetry Telemetry Monitoring Continues Telemetry Heart Rate 103 H Telemetry SPO2 88 L EKG DE Interval 0.15 EKG QRS Interval 0.03 L Telemetry Strip Reading ST 10/08/23 05:43 10/08/23 07:00 10/08/23 08:00 Temperature 97.4 F L Temperature Source Temporal Artery Scan Pulse Rate 94 Respiratory Rate 18 20 Blood Pressure 139/83 Blood Pressure Mean 101 Blood Pressure Location Left Arm Blood Pressure Position Supine O2 Sat by Pulse Oximetry 92 L Oxygen Delivery Method Nasal Cannula Nasal Cannula Oxygen Flow Rate 4 4 Telemetry Type Remote Telemetry Telemetry Monitoring Continues Telemetry Heart Rate 87 Telemetry SPO2 91 L EKG DE Interval 0.18 EKG QRS Interval 0.06 Telemetry Strip Reading SR 10/08/23 09:17 Temperature Temperature Source Pulse Rate Respiratory Rate Blood Pressure Blood Pressure Mean Blood Pressure Location Blood Pressure Position O2 Sat by Pulse Oximetry 92 L Oxygen Delivery Method Nasal Cannula Oxygen Flow Rate 4 Telemetry Type Telemetry Monitoring Telemetry Heart Rate Telemetry SPO2 EKG DE Interval EKG QRS Interval Telemetry Strip Reading Lab Results Lab Results: Lab Results: Last 24 Hours 10/08/23 04:56 WBC 10.47 H RBC 5.11 Hgb 14.9 Hct 47.2 H MCV 92.4 MCH 29.2 MCHC 31.6 L RDW Coeff of Serenity 13.3 Plt Count 198 Immature Gran % (Auto) 1.0 Neut % (Auto) 88.5 H Lymph % (Auto) 3.0 L [place] % (Auto) 7.4 Eos % (Auto) 0.0 Baso % (Auto) 0.1 Neut # (Auto) 9.3 H Lymph # (Auto) 0.3 L [place] # (Auto) 0.8 Eos # (Auto) 0.0 Baso # (Auto) 0.0 Immature Gran # (Auto) 0.1 Sodium 134.7 Potassium 4.46 Chloride 98.9 Carbon Dioxide 33.2 H Anion Gap 7.06 BUN 26.8 H Creatinine 0.51 L Estimated GFR (MDRD) 116.00 BUN/Creatinine Ratio 52.54 Glucose 134.1 H Calcium 9.53 Additional Comments Additional Comments: I have independently reviewed and interpreted the labs/EKGs/imaging ordered during this hospital stay. I have reviewed outside records that are available in our EMR that pertain to medical stay including imaging/notes/labs from previous visits. Active Medications Active Medications: Medications Generic Name Dose Route Start Last Admin Trade Name Freq PRN Reason Stop Dose Admin Acetaminophen 650 mg 10/02/23 21:47 Acetaminophen 325 Mg Tablet PO Q4H PRN Mild Pain Albuterol Sulfate 2.5 mg 10/02/23 21:47 10/07/23 03:21 Albuterol Sulfate 0.083% Vial.Neb NEB 2.5 mg RTQ4H PRN Administration Wheezing Albuterol/Ipratropium 3 ml 10/02/23 22:00 10/08/23 09:01 Ipratropium/Albuterol Vial.Neb NEB 3 ml RTQ4H SWATI Administration Cefdinir 300 mg 10/08/23 09:00 10/08/23 08:45 Cefdinir 300 Mg Capsule PO 10/08/23 23:59 300 mg Q12HR SWTAI Administration Enoxaparin Sodium 40 mg 10/04/23 10:40 10/08/23 08:47 Enoxaparin Sodium 40 Mg/0.4 Ml Syr SUBCUT 40 mg DAILY SWATI Administration Lorazepam 0.5 mg 10/06/23 15:28 10/07/23 17:16 Lorazepam 0.5 Mg Tablet PO 0.5 mg DAILY PRN Administration Anxiety Methylprednisolone Sodium Succinate 40 mg 10/03/23 05:00 10/08/23 05:19 Methylprednisolone Sod Succ/Pf 40 Mg/Ml Vial IVP 40 mg Q8HR SWATI Administration Ondansetron HCl 4 mg 10/02/23 21:47 Ondansetron Hcl/Pf 4 Mg/2 Ml Sdv IVP Q6H PRN Nausea / Vomiting Sodium Chloride 1 syr 10/04/23 21:00 10/08/23 05:19 0.9% Sodium Chloride 10 Ml Disp.Syrin IVF 1 syr Q8HR SWATI Administration Plan Plan: 1. Acute COPD Exacerbation - Back to her 3L at baseline except when having a sob episode, Cont steroids, nebs. Azith completed 10/06. Rocephin completed. 2. Acute hypoxic respiratory failure - Worse with exertion. Plan as above. 3. Persistent LLL pneumonia, community acquired - Cont abx 4. Hypertension - chronic, continue home medications 5. Dyslipidemia - chronic, continue home medications 6. Increasing ascending thoracic aortic aneurysm measuring 6.4 x 6.1 cm - Discussed with patient, advised f/u outpatient, she declines. 7. New 10 mm right apex nodule - Discussed outpatient f/u. 8. Thyroid nodules - Outpt f/u Dispo: 10/06 Discussed with patient transferring to higher acuity facility for pulmonology consult, as she continues to have these episodes of hypoxia/tachycardia with any exertion. She spoke with her son and . She initially agreed to transfer but then changed her mind. She does not want to undergo further work up for her COPD, pneumonia, pulmonary nodule, etc. She ultimately wants to go home. She also doesn't want to return to the ER or be hospitalized once she is home, but she's worried about suffering through these episodes at home with only her . We discussed the option of hospice care. She and her family are agreeable. [facility] with her and her family. They are able to have equipment into her home by Wednesday. Plan to monitor/treat her until then and dc Wednesday once her home is ready and she has the extra support she needs. We will continue our treatment plan until that time. 10/07 Plan is still to keep patient until her required DME is available to her at home and hospice can be present for her. Plan is dc on Wednesday. Review Statement Review Statement: I have personally discussed and reviewed the patient's visit/currently labs/i maging/decision making with Dr. Burgess, my supervising attending. Greater that 50 minutes spent with patient, 50% of the time spent with this patient was devoted to counseling and coordination of care.
[2023-10-08] MEDS: ATIVAN PO PRN (11:50)
[2023-10-08 13:42] VITALS: RESP 18
[2023-10-08] MEDS ORDERED: MIRALAX PO PRN (16:40)
[2023-10-08] MEDS: ALBUTEROL 0.083% NEB NEB PRN (21:35)
[2023-10-09] MEDS: ALBUTEROL 0.083% NEB NEB PRN (00:01)
[2023-10-09] MEDS: ATIVAN PO PRN (00:14)
[2023-10-09] MEDS: DUONEB NEB SCH ×3 (02:38→10:26)
[2023-10-09 05:09] VITALS: BP 133/81; PULSE 100; TEMP 97.1
[2023-10-09] MEDS: SOLU-MEDROL 40 MG IVP SCH (05:29)
[2023-10-09] MEDS: LOVENOX SUBCUT SCH (08:38)
--- NOTE | 2023-10-09 09:52 | DCSUM ---
Admission Date Admission Date: 10/02/23 Discharge Date Discharge Date: 10/09/23 Admission Diagnosis Admission Diagnosis: 1. Acute COPD exacerbation 2. Acute hypoxic respiratory failure Discharge Diagnosis Discharge Diagnosis: 1. Acute COPD Exacerbation 2. Acute hypoxic respiratory failure 3. Persistent LLL pneumonia, community acquired 4. Hypertension 5. Dyslipidemia 6. Increasing ascending thoracic aortic aneurysm measuring 6.4 x 6.1 cm 7. New 10 mm right apex nodule 8. Thyroid nodules Hospital Provider Hospital Provider: ALICE ROBLERO [facility]-C, [facility] Primary Care Physician Primary Care Physician: CELI BURGESS MD Summary of History and Physical Summary of History and Physical: 78 year old female presented to the ER with shortness of breath. Has pmh of COPD and CHF. States she has had worsening shortness of breath and a dry cough over the last couple days that hasn't gotten better. Wears 3L of oxygen continuously. In ER, O2 sat was in upper 80s. Improved after 2 breathing treatments to 93-94%. Denies any fever, chills, chest pain, N/V/D. PO2 significantly low on ABG. Hospital Course Subjective: Patient was treated with rocephin, azithromycin, solumedrol, and duonebs. She was able to be weaned down to her baseline O2. At rest patient felt well, felt as though her breathing was at baseline. However, with any exertion, just trying to get out of bed to [facility], she becomes very tachycardic and hypoxic. HR goes up to 120s-130s and O2 goes down to 70s-80s. It takes her several minutes to recover. Usually tripoding during these episodes. She also becomes anxious understandably. This did not improve over her hospitalization. CTA was performed, no PE. She does have persistent left sided pna, this being treated with abx. Her aneurysm has enlarged. She also has a new 10 mm nodule that looks suspicous. She continued to have these episodes 1-2x per day to the point she was afraid to exert herself at all. We had a conversation with Loulou CASTRO and Angie SERRA present on what she wants to do. Discussed with patient transferring to higher acuity facility for pulmonology consult, as she continues to have these episodes of hypoxia/tachycardia with any exertion. She spoke with her son and . She initially agreed to transfer but then quickly changed her mind within 30 minutes. She does not want to undergo further work up for her COPD, pneumonia, pulmonary nodule, etc. She ultimately wants to go home. She also doesn't want to return to the ER or be hospitalized once she is home, but she's worried about suffering through these episodes at home with only her . We discussed the option of hospice care. She and her family are agreeable. [facility] consulted with her and her family. Discharge was delayed as family and hospice prepared the home for her including hospital bed, bsc, etc. She complet ed abx regimen. Will continue steroids upon discharge. Hospice is meeting her at home today. She feels at peace with this decision and feels hospice can provide her what she wants, which is to be comfortable at home. PCP Viola WING made aware of discharge plan. Appearance: Pleasant, No Apparent Distress and Alert HEENT: MMM CVS: No Murmur Abdomen: Soft, Non-Tender and No Distention Respiratory: Other (+nonlabored at rest, easily sob with any exertion. ) Extremities: No Edema Vital Signs: Most Recent Vital Signs Temperature 97.1 F L 10/09/23 05:07 Temperature Source Temporal Artery Scan 10/09/23 05:07 Temperature Source Infrared 10/02/23 17:59 Pulse Rate 100 10/09/23 05:07 Respiratory Rate 18 10/09/23 05:07 Blood Pressure 133/81 10/09/23 05:07 Blood Pressure Mean 98 10/09/23 05:07 Blood Pressure Right Arm 152/62 10/02/23 22:30 Blood Pressure Location Right Arm 10/09/23 05:07 Blood Pressure Position Supine 10/09/23 05:07 O2 Sat by Pulse Oximetry 95 10/09/23 05:25 Oxygen Delivery Method Nasal Cannula 10/09/23 05:25 Oxygen Flow Rate 4 10/09/23 05:25 Fraction of Inspired Oxygen (FIO2) 35 10/05/23 08:04 Height 5 ft 3 in 10/07/23 10:29 Weight 112 lb 10/07/23 10:29 Telemetry Type Remote Telemetry 10/09/23 07:00 Telemetry Monitoring Continues 10/09/23 07:00 Telemetry Heart Rate 96 10/09/23 07:00 Telemetry SPO2 91 L 10/09/23 07:00 EKG [place] Interval 0.13 10/09/23 07:00 EKG QRS Interval 0.05 L 10/09/23 07:00 Telemetry Strip Reading SR 10/09/23 07:00 Imaging: EXAM: CHEST RADIOGRAPH TECHNIQUE: Single frontal chest radiograph. HISTORY: Shortness of breath. COMPARISON: 08/31/2022. FINDINGS: There is improvement in the left pleural effusion with small effusion remaining with associated atelectasis. Resolution of previous right pleural effusion. The lungs are otherwise clear with mild scarring seen in the right lower lobe. No pneumothorax. Cardiac silhouette remains enlarged unchanged. Mediastinal silhouette and pulmonary vessels within normal limits. Atherosclerotic calcific changes seen in the aorta. Upper abdomen is unremarkable. No acute bony abnormality. Degenerative changes of the right shoulder. IMPRESSION: 1. A small residual left pleural effusion with associated atelectasis. No focal infiltrate. 2. Resolution of previous right pleural effusion. 3. Stable enlarged cardiac silhouette without edema. EXAM: CHEST CTA WITH CONTRAST (PULMONARY ARTERY) HISTORY: Chest pain and shortness of breath. TECHNIQUE: CTA acquisition of the chest from the thoracic inlet to the upper abdomen following IV contrast administration timed to filling of the pulmonary artery. IV Contrast: 100 mL of Omnipaque 350 administered. 3D/MIP/VR images were utilized. CT Dose Reduction Techniques Employed: Yes. COMPARISON: Reviewed, most recently 08/31/2022. FINDINGS: Pulmonary Embolism: - Diagnostic quality: Adequate. - Central (Main/Lobar/Interlobar): No embolus. - Peripheral (Segmental/Subsegmental): No embolus. - Right ventricle/Left ventricle ratio: Normal. Multifocal abnormalities within the thyroid with substernal extension calcifications. Thyroid ultrasound as an outpatient is advised to exclude malignancy. Prominent vascular calcifications. Scattered emphysematous change. Streaky airspace opacities throughout with mild interlobular septal thickening and persistent left lower lobe consolidation. Cardiomegaly. Severe vascular calcifications. Increasing ascending thoracic aortic aneurysm measuring 6.4 x 6.1 cm. Coronary artery calcifications. No pericardial effusion. Central indentation of the thoracic cavity is seen. Multilevel degenerative changes. 10 mm solid ground-glass nodule right apex is new and suspicious, image 22 of 119. IMPRESSION: 1. Normal CT pulmonary angiogram with no evidence of pulmonary artery embolism. 2. Multifocal abnormalities within the thyroid with substernal extension calcifications. Thyroid ultrasound as an outpatient is advised to exclude malignancy. 3. Increasing ascending thoracic aortic aneurysm measuring 6.4 x 6.1 cm. Wo rsening multifocal airspace disease with persistent left lower lobe pneumonia. 4. 10 mm solid ground-glass nodule right apex is new and suspicious, image 22 of 119. Unexpected finding. Discharge Instructions Discharge Planning: Discharge Planning > [address] Alexa Burgess. Discharge Medications: Medications at Discharge (Home Meds & RX) aspirin 81 mg chewable tablet 81 mg PO PRN PRN pain 05/10/15 albuterol sulfate 90 mcg/actuation aerosol inhaler See Rx Instructions .Route .COMPLEX #18 grams 10/03/23 ipratropium 0.5 mg-albuterol 3 mg (2.5 mg base)/3 mL nebulization soln 3 ml NEB RTQ4H #90 mL 10/03/23 methylprednisolone 4 mg tablets in a dose pack (Medrol (Rod)) See Rx Instructions PO .COMPLEX #21 ea 10/03/23 atenolol 50 mg tablet See Rx Instructions .Route .COMPLEX #90 tabs 10/06/23 benzonatate 100 mg capsule 100 mg PO BID-TID PRN cough #30 caps 10/06/23 cefdinir 300 mg capsule 300 mg PO BID 3 days #6 caps 10/06/23 losartan 100 mg tablet See Rx Instructions .Route .COMPLEX #90 tabs 10/06/23 Discharge Plan Discharge Discharge Orders: Discharge Patient (ONCE); Ordered 10/09/23 Ordered By: ALICE ROBLERO Activity Restrictions/Additional Instructions: Discharge home with hospice Cardiac diet Activity as tolerated Follow-up with PCP as needed Medications: You do not need to take the Z rod (azithromycin) that was initially prescribed to you Wednesday, you have completed that here. You do not need to take the Cefdinir initially prescribed, that has been completed. Do take: Tessalon Perles (cough medicine) as needed Medrol dose rod (steroid) Take only 1/2 tablet each of your atenolol and losartan. Instructions: How to Stop Smoking (DC), Using Oxygen at Home (GEN), COPD (Chronic Obstructive Pulmonary Disease) (GEN) Care Plan Goals: Problem: Impaired Respiratory Status Goal: Exhibit optimal respiratory function Instructions: Activities as tolerated Apply oxygen as ordered Elevate head of bed Notify MD of increased congestion Patient Disposition: DISCHARGED TO HOSPICE -HOME Prescriptions: New ipratropium-albuterol 0.5 mg-3 mg(2.5 mg base)/3 mL Solution For Nebulization 3 ml NEB RTQ4H Qty: 90 0RF methylprednisolone [Medrol (Rod)] 4 mg tablets,dose pack See Rx Instructions .ROUTE .COMPLEX Qty: 21 0RF Rx Instructions: orally per package directions benzonatate 100 mg capsule 100 mg PO BID-TID PRN (Reason: cough) Qty: 30 0RF Continued aspirin 81 MG tablet,chewable 81 mg PO PRN PRN (Reason: pain) albuterol sulfate 90 mcg/actuation HFA aerosol inhaler See Rx Instructions .ROUTE .COMPLEX Qty: 18 1RF Dose Instruction: INHALE 2 PUFFS INTO THE LUNGS EVERY 4 TO 6 HOURS NEEDED FOR SHORTNESS OF BREATH OR WHEEZING Rx Instructions: INHALE 2 PUFFS INTO THE LUNGS EVERY 4 TO 6 HOURS NEEDED FOR SHORTNESS OF BREATH OR WHEEZING Changed losartan 100 mg tablet See Rx Instructions .ROUTE .COMPLEX Qty: 90 1RF Dose Instruction: TAKE 1 TABLET BY MOUTH DAILY Rx Instructions: TAKE 1/2 TABLET BY MOUTH DAILY atenolol 50 mg tablet See Rx Instructions .ROUTE .COMPLEX Qty: 90 1RF Dose Instruction: TAKE 1 TABLET BY MOUTH DAILY Rx Instructions: TAKE 1/2 TABLET BY MOUTH DAILY Did you review [place] DIRECTOR GENERAL for ALL controlled substances?: No Discussed opioids are addictive and Narcan is available by prescription or from pharmacy.: No Condition: Stable Referrals: CELI BURGESS MD [Primary Care Provider] - 10/13/23 1:20 pm
== END 2023-10-09 11:25 | disposition hospice, home (50) | DRG 189 ==
LOC: ED 17:59 → MEDSURG B 17:59
PROVIDERS: ADMIT Hospitalist; ATTEND Physician Assistant
DX: I71.20 Thoracic aortic aneurysm, without rupture, unspecified; J96.01 Acute respiratory failure with hypoxia; I50.9 Heart failure, unspecified; E78.5 Hyperlipidemia, unspecified; J44.1 Chronic obstructive pulmonary disease with (acute) exacerbation; J18.9 Pneumonia, unspecified organism; R91.1 Solitary pulmonary nodule; I11.0 Hypertensive heart disease with heart failure; Z87.01 Personal history of pneumonia (recurrent); E04.1 Nontoxic single thyroid nodule